=== PATIENT | female | born 1955 | race Caucasian/White ===

== ENCOUNTER 2016-10-29 00:10 | Emergency (ER) | payer OTHER, MEDICARE ==
[~2016-10-29 00:10] MED LIST: ABILIFY 15MG15 MG PO; ALBUTEROL0.09 MG/A1 INH; ALLOPURINOL300 MG PO; ATIVAN0.5 MG PO; BENZTROPINE ME0.5 MG PO; CALCIUM 600600 M1 PO; COMBIVENT1 ARO INH; DULERA1 AR1 INH; FLEXERIL10 MG PO; IBUPROFEN600 MG PO; INDERAL LA 60MG60 MG PO; LEVOTHYROXINE0.15 M1 PO; LORAZEPAM1 MG PO; MELOXICAM7.5 MG PO; MOTRIN 600 MG600 MG PO; PERCOCET 325 MG1 TA2 PO; PREDNISONE 20MG20 MG PO; PREDNISONE10 MG PO; PROPRANOLOL HCL20 MG PO; PROPRANOLOL HYD20 MG PO; SERTRALINE HYDR25 MG PO; SPIRIVA 18 MCG18 MCG INH; TEGRETOL200 MG PO; TYLENOL WITH C1 EACH PO; VITAMIN D1000 IU PO; ZITHROMAX Z-PA250 M1 PO; ZITHROMAX250 M2 PO; ZOCOR 40MG TAB40 MG PO
--- NOTE | 2016-10-29 00:27 | ED UPPER/LOWER EXTREMITY COMPL ---
History of Present Illness General Chief Complaint: Foot or Ankle Injury Stated Complaint: L FOOT PAIN X3 DAYS Source: patient Exam Limitations: no limitations Vital Signs & Intake/Output Vital Signs & Intake/Output Vital Signs Date Time Temp Pulse Resp B/P Pulse O2 O2 Flow FiO2 Ox Delivery Rate 10/29 0045 96.0 78 18 158/80 95 Room Air 10/29 0040 95 Room Air Allergies Coded Allergies: quetiapine (PER PT CANT REMEMBER 11/10/15) fluphenazine (STARES AT CEILING, WEIRD GYRATIONS PER PT 11/10/15) haloperidol (ROCKING BACK AND FORTH 11/10/15) lithium (GAINS A LOT OF WEIGHT PER PT 11/10/15) molindone (AKATHESIA 11/10/15) venom-honey bee (BEE VENOM (HONEY BEE)) (BEE VENOM WITH AKATHESIA 11/10/15) Reconcile Medications Albuterol Sulfate (Albuterol Sulfate Hfa) 0.09 MG/Actuation ROMAIN 2 PUFF INH Q4- 6 PRN PRN SHORTNESS OF BREATH 90 MCG PER PUFF Aripiprazole (Abilify) 15 MG TABLET 1 TAB PO DAILY BIPOLAR (Reported) Azithromycin (Zithromax) 250 MG TABLET 1 DP PO AD BRONCHITIS 2 the first day followed by 1 for days 2-5 Benztropine Mesylate 0.5 MG TAB 1 TAB PO BID MENTAL HEALTH (Reported) Calcium Carbonate (Calcium 600) 600 MG TAB 1 TAB PO BID SUPPLEMENT Carbamazepine (Tegretol) 200 MG TAB 400 MG PO BID "FITS" (Reported) Cholecalciferol (Vitamin D3) 1,000 IU TAB 1,000 IU PO DAILY supplement Levothyroxine Sodium 0.15 MG TAB 1 TAB PO DAILY THYROID (Reported) Lorazepam 1 MG TAB 1 TAB PO BID ANXIETY (Reported) Meloxicam 7.5 MG TAB 1 TAB PO BID ARTHRITIS (Reported) MOMETASONE/FORMOTEROL (Dulera 200 Mcg/5 Mcg Inhaler) 1 ROMAIN ROMAIN 2 PUF INH BID COPD (Reported) OXYCODONE HCL/ACETAMINOPHEN (Percocet 5-325 MG Tablet) 325 MG/5 MG TAB 1 TAB PO Q8P PRN pain Prednisone 10 MG TAB 1 TAB PO SI COPD Take 3 tabs daily on 11/04/15. Take 2 tabs daily from 11/05/15-3/3/16. Take 1 tab daily from 11/08/15-11/10/15. PROPRANOLOL HCL (Propranolol HCl) 20 MG TAB 1 TAB PO BID HYPERTENSION ( Reported) SERTRALINE HCL (Sertraline Hydrochloride) 25 MG TAB 1 TAB PO DAILY MENTAL HEALTH (Reported) Simvastatin (Zocor 40MG Tab) 40 MG TAB 1 TAB PO QPM CHOLESTEROL (Reported) Tiotropium [place] (Spiriva) 18 MCG CAP 1 CAP INH DAILY COPD (Reported) Tylenol With Codeine (Tylenol With Codeine #3 Tablet) 300 MG-30 MG TABLET 1 TAB PO Q8P PRN PAIN Triage Nurses Notes Reviewed? yes Onset: Gradual Duration: day(s): Timing: recent history Severity: mild, moderate Pain/Injury Location: Left: Foot. Method of Injury: unknown Modifying Factors: Improves With: rest. Associated Symptoms: "hurts when I walk" HPI: 61-year-old woman history schizophrenia presents by ambulance with left foot pain for the past 3 days. She notes that the pain is worse on the plantar aspect of her foot near her heel. It is worse when she walks. It is worse in the morning. She denies trauma. She notes that there is no swelling. She is otherwise well. She also asks about which psychiatric medications may be contributing to her weight gain. She asks about which psychiatric medications she could stop. She denies suicidality homicidality or hallucinations. She is otherwise well. Past History Travel History Traveled to [place] past 21 day No Medical History Any Pertinent Medical History? see below for history Neurological: NONE EENT: NONE Cardiovascular: hypertension Respiratory: asthma, bronchitis Gastrointestinal: NONE Hepatic: NONE Renal: NONE Musculoskeletal: R HIP/FEMUR/PELVIC FX/SX Psychiatric: schizoaffective disorder, borderline personality disorder, tobacco use disorder. 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 No Review of Systems Review of Systems Constitutional: Reports: no symptoms. EENTM: Reports: no symptoms. Respiratory: Reports: no symptoms. Cardiovascular: Reports: no symptoms. Gastrointestinal/Abdominal: Reports: no symptoms. Genitourinary: Reports: no symptoms. Musculoskeletal: Reports: no symptoms. Skin: Reports: no symptoms. Neurological/Psychological: Reports: no symptoms. Hematologic/Endocrine: Reports: no symptoms. Immunological: Reports: no symptoms. All Other Systems: Reviewed and Negative Physical Exam Physical Exam General Appearance: well developed/nourished, mild distress Head: atraumatic Eyes: Bilateral: normal appearance. Ears, Nose, Throat: normal pharynx, normal ENT inspection, hearing grossly normal Neck: normal inspection, supple Cardiovascular/Respiratory: regular rate/rhythm Back: normal inspection Leg Left: mild tenderness on the plantar aspect of the left foot near the calcaneus. No bony abnormality. 2+ distal pulse. Light touch intact. No swelling effusion or erythema. Skin: intact, normal color, warm/dry Lymphatic: no anterior cervical tran Progress Differential Diagnosis: contusion, sprain, tendon injury Plan of Care: Shlomo wrap to left foot by nursing staff. Close follow-up encouraged. We discussed her psychiatric medications. I encouraged her to continue her psychiatric medications and follow up with her psychiatrist as well as her PMD. Departure Departure Disposition: HOME OR SELF CARE Condition: Stable Clinical Impression Primary Impression: Plantar fasciitis of left foot Secondary Impressions: Schizophrenia Referrals: FLAQUITA HUA (PCP/Family) Departure Forms: Customer Survey General Discharge Information
[2016-10-29 00:45] VITALS: BP 158/80
== END 2016-10-29 00:49 ==
LOC: ERH 00:10
DX: M72.2 Plantar fascial fibromatosis (principal); F20.9 Schizophrenia, unspecified
CPT/HCPCS: 99282

== ENCOUNTER 2016-12-23 14:27 | Emergency (ER) | payer OTHER, MEDICARE ==
[~2016-12-23] VITALS: Ht 157.5 cm; Wt 72.6 kg
[2016-12-23 14:47] VITALS: BP 167/95
--- NOTE | 2016-12-23 14:54 | ED HAND/WRIST INJURY COMPLAINT ---
History of Present Illness General Chief Complaint: Hand or Wrist Injury Stated Complaint: UNABLE TO GET RING OFF OF FINGER Source: patient Exam Limitations: no limitations Vital Signs & Intake/Output Vital Signs & Intake/Output Vital Signs Date Time Temp Pulse Resp B/P B/P Pulse O2 O2 Flow FiO2 Mean Ox Delivery Rate 12/23 1447 97.4 64 18 167/95 97 Room Air Allergies Coded Allergies: quetiapine (PER PT CANT REMEMBER 11/10/15) fluphenazine (STARES AT CEILING, WEIRD GYRATIONS PER PT 11/10/15) haloperidol (ROCKING BACK AND FORTH 11/10/15) lithium (GAINS A LOT OF WEIGHT PER PT 11/10/15) molindone (AKATHESIA 11/10/15) venom-honey bee (BEE VENOM (HONEY BEE)) (BEE VENOM WITH AKATHESIA 11/10/15) Reconcile Medications Albuterol Sulfate (Albuterol Sulfate Hfa) 0.09 MG/Actuation ROMAIN 2 PUFF INH Q4- 6 PRN PRN SHORTNESS OF BREATH 90 MCG PER PUFF Aripiprazole (Abilify) 15 MG TABLET 1 TAB PO DAILY BIPOLAR (Reported) Azithromycin (Zithromax) 250 MG TABLET 1 DP PO AD BRONCHITIS 2 the first day followed by 1 for days 2-5 Benztropine Mesylate 0.5 MG TAB 1 TAB PO BID MENTAL HEALTH (Reported) Calcium Carbonate (Calcium 600) 600 MG TAB 1 TAB PO BID SUPPLEMENT Carbamazepine (Tegretol) 200 MG TAB 400 MG PO BID "FITS" (Reported) Cholecalciferol (Vitamin D3) 1,000 IU TAB 1,000 IU PO DAILY supplement Levothyroxine Sodium 0.15 MG TAB 1 TAB PO DAILY THYROID (Reported) Lorazepam 1 MG TAB 1 TAB PO BID ANXIETY (Reported) Meloxicam 7.5 MG TAB 1 TAB PO BID ARTHRITIS (Reported) MOMETASONE/FORMOTEROL (Dulera 200 Mcg/5 Mcg Inhaler) 1 ROMAIN ROMAIN 2 PUF INH BID COPD (Reported) OXYCODONE HCL/ACETAMINOPHEN (Percocet 5-325 MG Tablet) 325 MG/5 MG TAB 1 TAB PO Q8P PRN pain Prednisone 10 MG TAB 1 TAB PO SI COPD Take 3 tabs daily on 11/04/15. Take 2 tabs daily from 11/05/15-11/07/15. Take 1 tab daily from 11/08/15-11/10/15. PROPRANOLOL HCL (Propranolol HCl) 20 MG TAB 1 TAB PO BID HYPERTENSION ( Reported) SERTRALINE HCL (Sertraline Hydrochloride) 25 MG TAB 1 TAB PO DAILY MENTAL HEALTH (Reported) Simvastatin (Zocor 40MG Tab) 40 MG TAB 1 TAB PO QPM CHOLESTEROL (Reported) Tiotropium [place] (Spiriva) 18 MCG CAP 1 CAP INH DAILY COPD (Reported) Tylenol With Codeine (Tylenol With Codeine #3 Tablet) 300 MG-30 MG TABLET 1 TAB PO Q8P PRN PAIN Triage Note: PT TO TRIAGE WITH REQUEST TO CUT A RING FROM LEFT 4TH FINGER. SWELLING TO L 4HT FINGER NOTED. Triage Nurses Notes Reviewed? yes Occurred: GRADUAL Duration: worse persistent since (1 WEEK) Timing: no prior history Injury Environment: home Severity: moderate Severity Numbers: 7 Pain/Injury Location: Left: 4th finger. Method of Injury: RING HPI: Patient is a 61-year-old female presenting to the emergency department requesting we remove her ring from her left ring finger. She reports she put it on 2 months ago and noticed slowly increase in swelling in her fingers. Unable to get her off at home. Pain is mild. Worse when she tries support off. Denies numbness or tingling. Denies any trauma. Denies any nausea vomiting fevers or chills. (BHARATI CHO) Past History Travel History Traveled to [place] past 21 day No Medical History Any Pertinent Medical History? see below for history Neurological: NONE EENT: NONE Cardiovascular: hypertension Respiratory: asthma, bronchitis Gastrointestinal: NONE Hepatic: NONE Renal: NONE Musculoskeletal: R HIP/FEMUR/PELVIC FX/SX Psychiatric: schizoaffective disorder, borderline personality disorder, tobacco use disorder. 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 No (BHARATI CHO) Review of Systems Review of Systems Constitutional: Reports: no symptoms. Comments Review of systems: See HPI, All other systems negative. Constitutional, no chills fever or weight loss HEENT: No visual changes no sore throat no congestion Cardiovascular: No chest pain Skin, no jaundice no rashes Respiratory: No dyspnea cough sputum or hemoptysis GI: No nausea no vomiting : No dysuria No hematuria Muscle skeletal: no back pain, no neck pain, Neurologic: No numbness no confusion Psych: No INCREASED stress anxiety Immunology: No splenectomy or history of AIDS (BHARATI CHO) Physical Exam Physical Exam General Appearance: well developed/nourished, no apparent distress, alert, awake , anxious Hand Left: swelling, tender, 4th finger Hand Right: normal inspection Comments: Well-developed well-nourished no apparent distress. HEENT: Atraumatic, extraocular motion intact Neck: Normal inspection Back: Nontender Respiratory: No respiratory distress Extremities: mild edema noted to the left ring finger, to the distal aspect. There is a metal thick ring noted at the base of the left fourth finger. Capillary refills intact in upper extremities bilaterally. Radial pulses are 2+ bilaterally. Neuro: Alert and oriented x3 Psych: anxious, repetitively saying that she is leaving (BHARATI CHO) Progress Differential Diagnosis: cellulitis, contusion, dislocation, fracture, sprain Plan of Care: RING WAS REMOVED WITHOUT DIFFICULTY WITH THE RING CUT HER. bACITRACIN AND bAND- aID PLACED IN THE AREA THERE WAS SMALL AMOUNT OF ERYTHEMA UNDERNEATH THE RING. (BHARATI CHO) Departure Departure Time of Disposition: 1510 Disposition: HOME OR SELF CARE Condition: Stable Clinical Impression Primary Impression: Abrasion Referrals: FLAQUITA HUA (PCP/Family) Additional Instructions: FOLLOW-UP WITH YOUR PRIMARY CARE PHYSICIAN CALL TO MAKE AN APPOINTMENT. kEEP AREA CLEAN AND DRY. rETURN FOR WORSENING SYMPTOMS OR CONCERNS. Departure Forms: Customer Survey General Discharge Information (BHARATI CHO) PA/SERVICE ATTENDANT CAFETERIA Co-Sign Statement Statement: ED Attending supervision documentation- [] I saw and evaluated the patient. I have also reviewed all the pertinent lab results and diagnostic results. I agree with the findings and the plan of care as documented in the PA's/SERVICE ATTENDANT CAFETERIA's documentation. [X] I have reviewed the ED Record and agree with the PA's/SERVICE ATTENDANT CAFETERIA's documentation. [] Additions or exceptions (if any) to the PAs/SERVICE ATTENDANT CAFETERIA's note and plan are summarized below: [] (NICHOLAS PENA,ERVIN) Procedures Additional Procedures Additional Procedures: rING REMOVAL Progress: Ring was removed with ring cutter. No complications. (FERDINAND PA,BHARATI)
== END 2016-12-23 15:15 ==
LOC: ERH 14:27
DX: S60.455A Superficial foreign body of left ring finger, initial encounter (principal); X58.XXXA Exposure to other specified factors, initial encounter

== ENCOUNTER 2017-01-02 22:50 | Emergency (ER) | payer OTHER, MEDICARE ==
[~2017-01-02] VITALS: Ht 66 cm; Wt 72.6 kg
--- NOTE | 2017-01-02 22:53 | ED PSYCHIATRIC COMPLAINT ---
History of Present Illness General Chief Complaint: Psychiatric Related Complaint Stated Complaint: DEPRESSION, +SI Vital Signs & Intake/Output Vital Signs & Intake/Output Vital Signs Date Time Temp Pulse Resp B/P B/P Pulse O2 O2 Flow FiO2 Mean Ox Delivery Rate 01/03 0252 97.7 66 16 151/67 98 01/02 2303 97.2 68 21 182/80 98 Room Air ED Intake and Output 01/03 0000 01/02 1200 Intake Total Output Total Balance Patient 160 lb Weight Weight Reported by Patient Measurement Method Allergies Coded Allergies: quetiapine (PER PT CANT REMEMBER 11/10/15) fluphenazine (STARES AT CEILING, WEIRD GYRATIONS PER PT 11/10/15) haloperidol (ROCKING BACK AND FORTH 11/10/15) lithium (GAINS A LOT OF WEIGHT PER PT 11/10/15) molindone (AKATHESIA 11/10/15) venom-honey bee (BEE VENOM (HONEY BEE)) (BEE VENOM WITH AKATHESIA 11/10/15) Reconcile Medications Albuterol Sulfate (Albuterol Sulfate Hfa) 0.09 MG/Actuation ROMAIN 2 PUFF INH Q4- 6 PRN PRN SHORTNESS OF BREATH 90 MCG PER PUFF Aripiprazole (Abilify) 15 MG TABLET 1 TAB PO DAILY BIPOLAR (Reported) Azithromycin (Zithromax) 250 MG TABLET 1 DP PO AD BRONCHITIS 2 the first day followed by 1 for days 2-5 Benztropine Mesylate 0.5 MG TAB 1 TAB PO BID MENTAL HEALTH (Reported) Calcium Carbonate (Calcium 600) 600 MG TAB 1 TAB PO BID SUPPLEMENT Carbamazepine (Tegretol) 200 MG TAB 400 MG PO BID "FITS" (Reported) Cholecalciferol (Vitamin D3) 1,000 IU TAB 1,000 IU PO DAILY supplement Levothyroxine Sodium 0.15 MG TAB 1 TAB PO DAILY THYROID (Reported) Lorazepam 1 MG TAB 1 TAB PO BID ANXIETY (Reported) Meloxicam 7.5 MG TAB 1 TAB PO BID ARTHRITIS (Reported) MOMETASONE/FORMOTEROL (Dulera 200 Mcg/5 Mcg Inhaler) 1 ROMAIN ROMAIN 2 PUF INH BID COPD (Reported) OXYCODONE HCL/ACETAMINOPHEN (Percocet 5-325 MG Tablet) 325 MG/5 MG TAB 1 TAB PO Q8P PRN pain Prednisone 10 MG TAB 1 TAB PO SI COPD Take 3 tabs daily on 11/04/15. Take 2 tabs daily from 11/05/15-11/07/15. Take 1 tab daily from 11/08/15-11/10/15. PROPRANOLOL HCL (Propranolol HCl) 20 MG TAB 1 TAB PO BID HYPERTENSION ( Reported) SERTRALINE HCL (Sertraline Hydrochloride) 25 MG TAB 1 TAB PO DAILY MENTAL HEALTH (Reported) Simvastatin (Zocor 40MG Tab) 40 MG TAB 1 TAB PO QPM CHOLESTEROL (Reported) Tiotropium [place] (Spiriva) 18 MCG CAP 1 CAP INH DAILY COPD (Reported) Tylenol With Codeine (Tylenol With Codeine #3 Tablet) 300 MG-30 MG TABLET 1 TAB PO Q8P PRN PAIN Past History Travel History Traveled to [place] past 21 day No Medical History Neurological: NONE EENT: NONE Cardiovascular: hypertension Respiratory: asthma, bronchitis Gastrointestinal: NONE Hepatic: NONE Renal: NONE Musculoskeletal: R HIP/FEMUR/PELVIC FX/SX Psychiatric: schizoaffective disorder, borderline personality disorder, tobacco use disorder. 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 History of MRSA: No History of VRE: No History of CDIFF: No Tetanus Vaccine: 05/03/16 Surgical History Surgical History: status post lumpectomy Psychosocial History Who do you live with Patient/Self What is your primary language Slovenian Progress Plan of Care: Orders Procedure Date/time Status ED CRISIS PSYCH CONSULT 01/02 2353 Active Continuous Observation Monitor 01/03 2316 Active URINE DRUG SCREEN FOR ER ONLY 01/03 2316 Complete ETHANOL 01/03 2316 Complete COMPREHENSIVE METABOLIC PANEL 01/03 2316 Complete CBC WITHOUT DIFFERENTIAL 01/03 2316 Complete Laboratory Tests 01/02/17 2351: Urine Opiates Screen < 100.00, Methadone Screen < 40, Barbiturate Screen < 60, Ur Phencyclidine Scrn < 6.00, Amphetamines Screen 131, U Benzodiazepines Scrn 88 , Urine Cocaine Screen < 50, Urine Cannabis Screen < 5.00 01/02/17 2341: Anion Gap 10, Estimated GFR 42 L, BUN/Creatinine Ratio 32.3 H, Glucose 112 H, Calcium 8.7, Total Bilirubin 0.7, AST 32, ALT 40, Alkaline Phosphatase 116, Total Protein 7.6, Albumin 4.1, Globulin 3.5, Albumin/Globulin Ratio 1.2, CBC w Diff NO MAN DIFF REQ, RBC 3.90 L, MCV 95.2, MCH 32.5 H, RDW 13.4, MPV 7.5, Gran % 62.0, Lymphocytes % 24.4, Monocytes % 10.0 H, Eosinophils % 2.9, Basophils % 0.7, Absolute Granulocytes 2.8, Absolute Lymphocytes 1.1 L, Absolute Monocytes 0.5, Absolute Eosinophils 0.1, Absolute Basophils 0, PUBS MCHC 34.2, Serum Alcohol < 10.0 Departure Departure Condition: Stable Referrals: FLAQUITA HUA (PCP/Family) Departure Forms: Customer Survey General Discharge Information
--- NOTE | 2017-01-02 23:16 | ED PSYCHIATRIC COMPLAINT ---
History of Present Illness General Chief Complaint: Psychiatric Related Complaint Stated Complaint: DEPRESSION, +SI Source: patient, old records Exam Limitations: no limitations Vital Signs & Intake/Output Vital Signs & Intake/Output Vital Signs Date Time Temp Pulse Resp B/P B/P Pulse O2 O2 Flow FiO2 Mean Ox Delivery Rate 01/03 0852 97.6 01/03 0800 96 01/03 0549 97.6 62 16 158/72 95 Room Air 01/03 0252 97.7 66 16 151/67 98 01/02 2303 97.2 68 21 182/80 98 Room Air ED Intake and Output 01/03 0000 01/02 1200 Intake Total Output Total Balance Patient 160 lb Weight Weight Reported by Patient Measurement Method Allergies Coded Allergies: quetiapine (PER PT CANT REMEMBER 11/10/15) fluphenazine (STARES AT CEILING, WEIRD GYRATIONS PER PT 11/10/15) haloperidol (ROCKING BACK AND FORTH 11/10/15) lithium (GAINS A LOT OF WEIGHT PER PT 11/10/15) molindone (AKATHESIA 11/10/15) venom-honey bee (BEE VENOM (HONEY BEE)) (BEE VENOM WITH AKATHESIA 11/10/15) Triage Note: PT BIBA ON A PEER FOR SI COMMENTS. PER EMS PT CALLED SUICIDE HOTLINE STATING SHE WAS GOING TO HARM HERSELF IF SHE COULDNT WAKE UP HER UP TO TALK. PER EMS SHE STATED SHE HAD NOBODY TO TALK TO. PT A/O X4. PT DENIES SI/HI. PT REPRTS NEVER SAYING SHE IS SI. PT STATES SHE FELT LONELY AND WANTED SOMEONE TO TALK TO. Triage Nurses Notes Reviewed? yes Onset: Abrupt Duration: day(s): (1), constant Timing: recent history Severity: moderate Severity Numbers: 7 Associated Symptoms: anxiety HPI: 61-year-old female history of schizophrenia and bipolar presents brought in by ambulance on please paper after she made comments to the crisis hotline saying that she was going to harm herself because she was lonely and could not wake her up to talk. On arrival the patient is anxious however cooperative, she states she's been compliant with all her medications and denies making any suicidal comments. Patient denies homicidal ideation and she denies hallucinations R: Drug use no modifying factors or associated symptoms. (BILL PA,EVIN) Reconcile Medications Albuterol Sulfate (Albuterol Sulfate Hfa) 0.09 MG/Actuation ROMAIN 2 PUFF INH Q4- 6 PRN PRN SHORTNESS OF BREATH 90 MCG PER PUFF Aripiprazole (Abilify) 15 MG TABLET 1 TAB PO DAILY BIPOLAR (Reported) Benztropine Mesylate 0.5 MG TAB 1 TAB PO BID MENTAL HEALTH (Reported) Calcium Carbonate (Calcium 600) 600 MG TAB 1 TAB PO BID SUPPLEMENT Carbamazepine (Tegretol) 200 MG TAB 400 MG PO BID "FITS" (Reported) Cholecalciferol (Vitamin D3) 1,000 IU TAB 1,000 IU PO DAILY supplement Levothyroxine Sodium 0.15 MG TAB 1 TAB PO DAILY THYROID (Reported) Lorazepam 1 MG TAB 1 TAB PO BID ANXIETY (Reported) Meloxicam 7.5 MG TAB 1 TAB PO BID ARTHRITIS (Reported) MOMETASONE/FORMOTEROL (Dulera 200 Mcg/5 Mcg Inhaler) 1 ROMAIN ROMAIN 2 PUF INH BID COPD (Reported) OXYCODONE HCL/ACETAMINOPHEN (Percocet 5-325 MG Tablet) 325 MG/5 MG TAB 1 TAB PO Q8P PRN pain Prednisone 10 MG TAB 1 TAB PO SI COPD Take 3 tabs daily on 11/04/15. Take 2 tabs daily from 11/05/15-11/07/15. Take 1 tab daily from 11/08/15-11/10/15. PROPRANOLOL HCL (Propranolol HCl) 20 MG TAB 1 TAB PO BID HYPERTENSION ( Reported) SERTRALINE HCL (Sertraline Hydrochloride) 25 MG TAB 1 TAB PO DAILY MENTAL HEALTH (Reported) Simvastatin (Zocor 40MG Tab) 40 MG TAB 1 TAB PO QPM CHOLESTEROL (Reported) Tiotropium [place] (Spiriva) 18 MCG CAP 1 CAP INH DAILY COPD (Reported) Tylenol With Codeine (Tylenol With Codeine #3 Tablet) 300 MG-30 MG TABLET 1 TAB PO Q8P PRN PAIN (MANUELA PENA,GEMA Oliver) Past History Travel History Traveled to [place] past 21 day No Medical History Any Pertinent Medical History? see below for history Neurological: NONE EENT: NONE Cardiovascular: hypertension Respiratory: asthma, bronchitis Gastrointestinal: NONE Hepatic: NONE Renal: NONE Musculoskeletal: R HIP/FEMUR/PELVIC FX/SX Psychiatric: schizoaffective disorder, borderline personality disorder, tobacco use disorder. 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 No (EVIN TEJEDA) Review of Systems Review of Systems Constitutional: Reports: see HPI. All Other Systems: Reviewed and Negative Comments Review of systems: See HPI, All other systems negative. Constitutional, no chills no fever, no malaise HEENT:no sore throat no congestion Cardiovascular: No chest pain , no palpitation Skin: no rashes, no change in skin Respiratory: No dyspnea no cough no sputum GI: No nausea no vomiting, no diarrhea : No dysuria No hematuria, Muscle skeletal: No joint pain, no joint swelling, no back pain Neurologic: no headache Psych: stress Heme/endocrine: No bruising no bleeding Immunology: No lymphadenopathy (EVIN TEJEDA) Physical Exam Physical Exam General Appearance: well developed/nourished, no apparent distress, alert Neurological/Psychiatric: no motor/sensory deficits, awake, alert, normal mood/ affect, calm Comments: Well-developed well-nourished person in no acute distress HEENT: Normal EENT exam; PERRL, EOMI, HEAD is atraumatic. moist mucous membranes. Neck: Supple, normal range of motion s Back: Nontender,. Full range of motion Cardiovascular: Regular rate and rhythms no murmurs rubs Respiratory: No respiratory distress. Patient speaking in full complete sentences. Breath sounds clear to auscultation bilaterally: NO W/R/R Abdomen: Soft, nontender nondistended, Extremity: No edema, full range of motion of extremities Neuro: Alert oriented x3, motor sensory normal, cranial nerves II through XII grossly intact. There were no obvious focal neurologic abnormalities. Skin: No appreciable rash on exposed skin, skin is warm and dry. Psych: Mood and affect is normal, memory and judgment is normal. SAD PERSONS Done? patient not suicidal (EVIN TEJEDA) Progress Differential Diagnosis: BIPOLAR, SCHIZOAFFECTIVE DISORDER Plan of Care: Orders Procedure Date/time Status Regular Diet 01/03 B Active ED CRISIS PSYCH CONSULT 01/02 2353 Active Continuous Observation Monitor 01/03 2316 Active URINE DRUG SCREEN FOR ER ONLY 01/03 2316 Complete ETHANOL 01/03 2316 Complete COMPREHENSIVE METABOLIC PANEL 01/03 2316 Complete CBC WITHOUT DIFFERENTIAL 01/03 2316 Complete Laboratory Tests 01/02/17 2351: Urine Opiates Screen < 100.00, Methadone Screen < 40, Barbiturate Screen < 60, Ur Phencyclidine Scrn < 6.00, Amphetamines Screen 131, U Benzodiazepines Scrn 88 , Urine Cocaine Screen < 50, Urine Cannabis Screen < 5.00 01/02/17 2341: Anion Gap 10, Estimated GFR 42 L, BUN/Creatinine Ratio 32.3 H, Glucose 112 H, Calcium 8.7, Total Bilirubin 0.7, AST 32, ALT 40, Alkaline Phosphatase 116, Total Protein 7.6, Albumin 4.1, Globulin 3.5, Albumin/Globulin Ratio 1.2, CBC w Diff NO MAN DIFF REQ, RBC 3.90 L, MCV 95.2, MCH 32.5 H, RDW 13.4, MPV 7.5, Gran % 62.0, Lymphocytes % 24.4, Monocytes % 10.0 H, Eosinophils % 2.9, Basophils % 0.7, Absolute Granulocytes 2.8, Absolute Lymphocytes 1.1 L, Absolute Monocytes 0.5, Absolute Eosinophils 0.1, Absolute Basophils 0, PUBS MCHC 34.2, Serum Alcohol < 10.0 LABS ORDERED, PT MEDICATED WITH ATIVAN 2MG PO CASE D/W DR PETERSON AND SIGNED OUT TO HER AT 1AM PENDING CRISIS EVAL IN AM (EVIN TEJEDA) Hand-Off Endorsed To: ERVIN PETERSON MD Endorsed Time: 54 Pending: consult (CRISIS) (EVIN TEJEDA) Hand-Off Endorsed To: GEMA ROY MD Endorsed Time: 07 Pending: consult (ERVIN PETERSON MD) Comments: Patient has been seen and evaluated by hypoid gear generator. Patient is stable for discharge. (GEMA ROY MD) Departure Departure Condition: Stable Referrals: FLAQUITA HUA (PCP/Family) Departure Forms: Customer Survey General Discharge Information (EVIN TEJEDA) PA/SLASHER HAND Co-Sign Statement Statement: ED Attending supervision documentation- [X] I saw and evaluated the patient. I have also reviewed all the pertinent lab results and diagnostic results. I agree with the findings and the plan of care as documented in the PA's/SLASHER HAND's documentation. [X] I have reviewed the ED Record and agree with the PA's/SLASHER HAND's documentation. [] Additions or exceptions (if any) to the PAs/SLASHER HAND's note and plan are summarized below: [] (NICHOLAS PENA,ERVIN) Departure Disposition: HOME OR SELF CARE Clinical Impression Primary Impression: Depression Secondary Impressions: Bipolar disorder, unspecified, Schizoaffective disorder Additional Instructions: Follow-up as per the recommendations of the hypoid gear generator. Return for any concerns. (MANUELA PENA,GEMA Oliver)
[2017-01-02 23:50] LABS: ABSOLUTE BASOPHIL COUNT 0 /CUMM (0.0-0.2); ABSOLUTE EOSINOPHIL COUNT 0.1 /CUMM (0.0-0.7); ABSOLUTE GRANULOCYTE CT 2.8 /CUMM (1.4-6.5); ABSOLUTE LYMPH COUNT 1.1 /CUMM (1.2-3.4); ABSOLUTE MONOCYTE COUNT 0.5 /CUMM (0.10-0.60); BASOPHIL % 0.7 % (0.0-2.0); EOSINOPHIL % 2.9 % (0-5); HEMATOCRIT 37.1 % (37-47); MEAN CORPUSCULAR HGB 32.5 PG (27.0-31.0); MEAN CORPUSCULAR HGB CONC 34.2 G/DL (33.0-37.0); MEAN CORPUSCULAR VOLUME 95.2 FL (81.0-99.0); MEAN PLATELET VOLUME 7.5 FL (7.4-10.4); PLATELET COUNT 193 /CUMM (130-400); RBC DISTRIBUTION WIDTH 13.4 % (11.5-14.5); WHITE BLOOD CELL COUNT 4.5 /CUMM (4.8-10.8)
[2017-01-03 10:13] VITALS: BP 142/74
--- NOTE | 2017-01-03 10:34 | ED PSYCH CRISIS CONSULTATION ---
Crisis Consult Basic Assessment Date of Consult: 01/03/17 Responsible Person/Accompanied By: self Insurance Authorization: Insurance #1: Insurance name: MEDICARE A Phone number: Policy number: [id number] Group number: Authorization number: ED Provider: Patient's ED Provider: EVIN TEJEDA Primary Care Physician: Patient's PCP: FLAQUITA HUA PCP's Current Psychiatrist: [facility] Chief Complaint: Psychiatric Related Complaint Patient's Quote: "I didn't say I was going to harm myself." Present Illness: The pt is a 61yo single female BIBA on a PEER after calling the [facility] Crisis line. This clinician spoke by phone with the [facility] sales solutions representative clinician Paula Lozano. Ms. Lozano stated mobile crisis did not evaluate the pt. Ms. Lozano stated the answering service followed their protocol and called the police due to the pt making a statement about self harm. Ms. Lozano stated the [facility] Clinical Director of the [place] office reported the pt has been ramping up over the past week and making statements that are verbally aggressive and less edited. During this assessment and throughout her time in the ED the pt denies making statements about harming herself during her call to mobile crisis. The pt stated her boyfriend went to bed early and she wanted to talk with someone. The pt presented alert, oriented and irritable with goal directed speech. During her time in the ED the pt has been argumentative at times with ED sitter. The pt was cooperative during this assessment. The pt denies SI, HI, AH, VH, paranoia and problems with appetite. The pt stated she sleeps 4 hours per night and naps during the day which she reports is her baseline sleep pattern. The pt denies any drug and alcohol use and her toxicology screen is negative. The pt reports taking her medication as prescribed. The pt is in treatment at [facility] and sees her case sealer and therapist on a weekly basis. The pt reports she last saw her therapist on 01/01/17 and is scheduled to see the therapist on 01/04/17. The pt stated she is scheduled to see the psychiatrist on 01/07/17. The pt has a visiting nurse 1x per day Wednesday through Wednesday. The pt is requesting discharge home and to continue in treatment with [facility]. The pt denies any self harm behaviors since 04/2016 when she was evaluated and discharged from the [place] ED after superficially scratching her wrist. The pt has a long treatment history and has been diagnosed with Schizophrenia and Bipolar. The pt stated her last suicide attempt was over 30 years ago, pt unable to provide details. Pts presentation reviewed with Dr. Mendoza, pt will be discharged and continue in treatment at [facility]. Pt is in agreement with this plan and stated she will call [facility] if needed or return to the ED. Patient's Address: [address] [place] [address] Other Phone Number: Who Do You Live With? Patient/Self Family/Informants Interviewed: [facility] sales solutions representative clinician, previous [place] records. Allergies - Coded Allergies: quetiapine (PER PT CANT REMEMBER 11/10/15) fluphenazine (STARES AT CEILING, WEIRD GYRATIONS PER PT 11/10/15) haloperidol (ROCKING BACK AND FORTH 11/10/15) lithium (GAINS A LOT OF WEIGHT PER PT 11/10/15) molindone (AKATHESIA 11/10/15) venom-honey bee (BEE VENOM (HONEY BEE)) (BEE VENOM WITH AKATHESIA 11/10/15) Current Medications - Scheduled Medications Aripiprazole (Abilify) 15 MG TABLET 1 TAB PO DAILY BIPOLAR 30 Days (Reported) Entered as Reported by MARIAA VASQUES on 07/21/14 0748 Benztropine Mesylate 0.5 MG TAB 1 TAB PO BID MENTAL HEALTH #60 (Reported) Entered as Reported by JAMEE WHITESIDE on 10/29/151934 Calcium Carbonate (Calcium 600) 600 MG TAB 1 TAB PO BID SUPPLEMENT 30 Days Prescribed by JAKUB VASQUEZ on 11/03/15 Carbamazepine (Tegretol) 200 MG TAB 400 MG PO BID "FITS" #120 (Reported) Entered as Reported by JAMEE WHITESIDE on 10/29/151934 Cholecalciferol (Vitamin D3) 1,000 IU TAB 1,000 IU PO DAILY supplement 30 Days Prescribed by JAKUB VASQUEZ on 11/03/15 Levothyroxine Sodium 0.15 MG TAB 1 TAB PO DAILY THYROID 30 Days (Reported) Entered as Reported by MARIAA VASQUES on 07/21/14 0748 Lorazepam 1 MG TAB 1 TAB PO BID ANXIETY #60 (Reported) Entered as Reported by JAMEE WHITESIDE on 10/29/151935 Meloxicam 7.5 MG TAB 1 TAB PO BID ARTHRITIS #60 (Reported) Entered as Reported by JAMEE WHITESIDE on 10/29/151936 MOMETASONE/FORMOTEROL (Dulera 200 Mcg/5 Mcg Inhaler) 1 ROMAIN ROMAIN 2 PUF INH BID COPD #13 (Reported) Entered as Reported by JAMEE WHITESIDE on 10/29/151932 Prednisone 10 MG TAB 1 TAB PO SI COPD #12 TAB Prescribed by JAKUB VASQUEZ on 11/03/15 PROPRANOLOL HCL (Propranolol HCl) 20 MG TAB 1 TAB PO BID HYPERTENSION ( Reported) Entered as Reported by HAL STALLWORTH MD on 10/29/152215 SERTRALINE HCL (Sertraline Hydrochloride) 25 MG TAB 1 TAB PO DAILY MENTAL HEALTH #30 (Reported) Entered as Reported by JAMEE WHITESIDE on 10/29/151932 Simvastatin (Zocor 40MG Tab) 40 MG TAB 1 TAB PO QPM CHOLESTEROL #60 (Reported ) Entered as Reported by JAMEE WHITESIDE on 10/29/151937 Tiotropium [place] (Spiriva) 18 MCG CAP 1 CAP INH DAILY COPD #30 (Reported) Entered as Reported by JAMEE WHITESIDE on 10/29/151932 Scheduled PRN Medications Albuterol Sulfate (Albuterol Sulfate Hfa) 0.09 MG/Actuation ROMAIN 2 PUFF INH Q4- 6 PRN PRN SHORTNESS OF BREATH #1 ROMAIN Prescribed by BHARATI CHO on 08/17/15 OXYCODONE HCL/ACETAMINOPHEN (Percocet 5-325 MG Tablet) 325 MG/5 MG TAB 1 TAB PO Q8P PRN pain #10 TAB Prescribed by JAKUB VASQUEZ on 11/03/15 Tylenol With Codeine (Tylenol With Codeine #3 Tablet) 300 MG-30 MG TABLET 1 TAB PO Q8P PRN PAIN #20 TAB Prescribed by GEMA ROY MD on 07/05/16 Laboratory Results: Laboratory Tests 01/02/17 2351: Urine Opiates Screen < 100.00, Methadone Screen < 40, Barbiturate Screen < 60, Ur Phencyclidine Scrn < 6.00, Amphetamines Screen 131, U Benzodiazepines Scrn 88 , Urine Cocaine Screen < 50, Urine Cannabis Screen < 5.00 01/02/17 2341: Anion Gap 10, Estimated GFR 42 L, BUN/Creatinine Ratio 32.3 H, Glucose 112 H, Calcium 8.7, Total Bilirubin 0.7, AST 32, ALT 40, Alkaline Phosphatase 116, Total Protein 7.6, Albumin 4.1, Globulin 3.5, Albumin/Globulin Ratio 1.2, CBC w Diff NO MAN DIFF REQ, RBC 3.90 L, MCV 95.2, MCH 32.5 H, RDW 13.4, MPV 7.5, Gran % 62.0, Lymphocytes % 24.4, Monocytes % 10.0 H, Eosinophils % 2.9, Basophils % 0.7, Absolute Granulocytes 2.8, Absolute Lymphocytes 1.1 L, Absolute Monocytes 0.5, Absolute Eosinophils 0.1, Absolute Basophils 0, PUBS MCHC 34.2, Serum Alcohol < 10.0 Past History Past Medical History Neurological: NONE EENT: NONE Cardiovascular: hypertension Respiratory: asthma, bronchitis Gastrointestinal: NONE Hepatic: NONE Renal: NONE Musculoskeletal: R HIP/FEMUR/PELVIC FX/SX Psychiatric: schizoaffective disorder, borderline personality disorder, tobacco use disorder. 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 Physical Limitations (Interventions): Right trochanter partial-fracture 10/29/2015; fracture was pinned on 10/31/2015. Psychiatric Treatment History Psych Treatment Psychiatric Treatment Yes Inpatient Treatment Yes Outpatient Treatment Yes Location of Treatment [facility] Reason for Treatment Schizoaffective Dis, Bipolar type Dates of Treatment Long hx of treatment Response to Treatment periods of stability Diagnosis by History: Schizoaffective disorder bipolar type History of benzodiazepine dependence History of schizotypal personality disorder with borderline, narcissistic, histrionic and paranoid traits Substance Use/Abuse History Drug Use/Abuse Substances Used/Abused No Substance Abuse Treatment Substance Abuse Treatment Past Substance Abuse [place] No Current Mental Status Mental Status Orientation: Person, Place, Situation Affect: Anxious (irritable at times) Speech: WNL Neuro-vegetative: WNL Appearance Appearance- Dress/Hygiene: appropriate Behaviors Thought Process: WNL Thought Content: WNL Memory: WNL Insight: Fair SI/HI Risk Assessment Past Suicidal Ideation/Attempts Yes Current Suicidal Ideation/Att No Past Homicidal Ideation/Att: No Current Homicidal Ideation/Attempts No Degree of Intent: None Danger To: Others (n/a) Risk Factors: access to lethal means, chronic/serious med cond., history of suicide atmpts, SA/MH hospitalized, limited support Lethality Ratin (mild) PTSD Checklist PTSD Done? patient declined ED Management Sitter: Yes Restraints: No DSM5/PS Stressors/Medical Prob Diagnosis' (DSM 5, Stressors, Medical): F25.0 Schizoaffective, bipolar type Current GAF: 44 Departure Disposition Psych Medical Clearance Date: 01/03/17 Medically Cleared at: 0800 Time Started: 0800 Time Ended: 0845 Psychiatrist Consulted: Dr. Mendoza Date Disposition Established: 01/03/17 Time Disposition Established: 1000 Plan for Disposition - Modality: Outpatient Facility: [facility] Follow-up Appt Date: 01/04/17 Rationale for Disposition: Pt is not in need of hospitalization. Referrals FLAQUITA HUA (PCP/Family)
== END 2017-01-03 10:13 ==
LOC: ERH 22:50
PROVIDERS: Physician Assistant Medical
DX: F32.9 Major depressive disorder, single episode, unspecified (principal); F31.9 Bipolar disorder, unspecified; F25.9 Schizoaffective disorder, unspecified
CPT/HCPCS: 1263; 80307; 96372; G0463; G0480; J1200

== ENCOUNTER 2017-12-30 16:38 | Emergency (ER) | payer OTHER, MEDICARE ==
--- NOTE | 2017-12-30 17:54 | ED PSYCHIATRIC COMPLAINT ---
History of Present Illness General Chief Complaint: Psychiatric Related Complaint Stated Complaint: +SI Source: patient, old records, EMS Exam Limitations: no limitations Vital Signs & Intake/Output Vital Signs & Intake/Output Vital Signs Date Time Temp Pulse Resp B/P B/P Pulse O2 O2 Flow FiO2 Mean Ox Delivery Rate 12/31 0811 97.9 70 20 148/78 95 Room Air 12/31 0622 96.4 59 20 163/52 98 Room Air 12/31 0143 94 12/30 2153 96.8 71 20 123/60 93 Room Air 12/30 1941 97.0 92 20 131/66 100 Room Air 12/30 1746 97.3 80 18 124/61 94 Room Air 12/30 1647 Room Air Allergies Coded Allergies: quetiapine (PER PT CANT REMEMBER 11/10/15) fluphenazine (STARES AT CEILING, WEIRD GYRATIONS PER PT 11/10/15) haloperidol (ROCKING BACK AND FORTH 11/10/15) lithium (GAINS A LOT OF WEIGHT PER PT 11/10/15) molindone (AKATHESIA 11/10/15) venom-honey bee (BEE VENOM (HONEY BEE)) (BEE VENOM WITH AKATHESIA 11/10/15) Reconcile Medications Albuterol Sulfate (Albuterol Sulfate Hfa) 0.09 MG/Actuation ROMAIN 2 PUFF INH Q4- 6 PRN PRN SHORTNESS OF BREATH 90 MCG PER PUFF Aripiprazole (Abilify) 15 MG TABLET 1 TAB PO DAILY BIPOLAR (Reported) Benztropine Mesylate 0.5 MG TAB 1 TAB PO BID MENTAL HEALTH (Reported) Calcium Carbonate (Calcium 600) 600 MG TAB 1 TAB PO BID SUPPLEMENT Carbamazepine (Tegretol) 200 MG TAB 400 MG PO BID "FITS" (Reported) Cholecalciferol (Vitamin D3) 1,000 IU TAB 1,000 IU PO DAILY supplement Levothyroxine Sodium 0.15 MG TAB 1 TAB PO DAILY THYROID (Reported) Lorazepam 1 MG TAB 1 TAB PO BID ANXIETY (Reported) Meloxicam 7.5 MG TAB 1 TAB PO BID ARTHRITIS (Reported) MOMETASONE/FORMOTEROL (Dulera 200 Mcg/5 Mcg Inhaler) 1 ROMAIN ROMAIN 2 PUF INH BID COPD (Reported) OXYCODONE HCL/ACETAMINOPHEN (Percocet 5-325 MG Tablet) 325 MG/5 MG TAB 1 TAB PO Q8P PRN pain Prednisone 10 MG TAB 1 TAB PO SI COPD Take 3 tabs daily on 11/04/15. Take 2 tabs daily from 11/05/15-11/07/15. Take 1 tab daily from 11/08/15-11/10/15. PROPRANOLOL HCL (Propranolol HCl) 20 MG TAB 1 TAB PO BID HYPERTENSION ( Reported) SERTRALINE HCL (Sertraline Hydrochloride) 25 MG TAB 1 TAB PO DAILY MENTAL HEALTH (Reported) Simvastatin (Zocor 40MG Tab) 40 MG TAB 1 TAB PO QPM CHOLESTEROL (Reported) Tiotropium [place] (Spiriva) 18 MCG CAP 1 CAP INH DAILY COPD (Reported) Tylenol With Codeine (Tylenol With Codeine #3 Tablet) 300 MG-30 MG TABLET 1 TAB PO Q8P PRN PAIN Triage Note: PHIL FROM [facility] FOR EVAL AFTER MAKING SI STATEMENTS TO COUNSELOR Triage Nurses Notes Reviewed? yes Onset: Just prior to arrival Duration: hour(s): Timing: recent history Severity: severe Severity Numbers: 8 HPI: Patient is a 62-year-old female with history of anxiety and depression presenting to the emergency department from [facility] was making suicidal comments TO COUNSELOR. Patient reports that she was just say to get away from her neighbors. Does not feel suicidal at this time. Denies homicidal ideation. Denies any drug or alcohol use. Denies chest pain palpitations and shortness of breath. No specific plan. Denies active suicidal ideation at this time. No homicidal ideation. Denies abdominal pain. No change in bowel habits. (Edna Carpenter) Past History Travel History Traveled to [place] past 21 day No Medical History Any Pertinent Medical History? see below for history Neurological: NONE EENT: NONE Cardiovascular: hypertension Respiratory: asthma, bronchitis Gastrointestinal: NONE Hepatic: NONE Renal: NONE Musculoskeletal: R HIP/FEMUR/PELVIC FX/SX Psychiatric: schizoaffective disorder, borderline personality disorder, tobacco use disorder. 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 No (Edna Carpenter) Review of Systems Review of Systems Constitutional: Reports: no symptoms. Comments Review of systems: See HPI, All other systems negative. Constitutional, no chills fever or weight loss HEENT: No visual changes no sore throat no congestion Cardiovascular: No chest pain ,palpitation , orthopnea or ankle swelling Skin, no jaundice no rashes Respiratory: No dyspnea cough sputum or hemoptysis GI: No nausea no vomiting : No dysuria No hematuria Muscle skeletal: no back pain, no neck pain, Neurologic: No numbness no confusion Psych: Positive stress and anxiety Heme/endocrine: No bruising no bleeding no polyuria or polydipsia Immunology: No splenectomy or history of AIDS (Edna Carpenter) Physical Exam Physical Exam General Appearance: well developed/nourished, no apparent distress, awake, comfortable Neurological/Psychiatric: oriented x 3 Comments: Well-developed well-nourished person in no acute distress HEENT: Atraumatic, normocephalic Neck: Normal inspection Back: Nontender Cardiovascular: Regular rate and rhythms no murmurs rubs or gallops, normal JVP Respiratory: Chest nontender. No respiratory distress.breath sounds clear to auscultation bilaterally Extremity: No edema Neuro: Alert oriented x3 Skin: No appreciable rash on exposed skin, skin is warm and dry. Psych: Drowsy but arousable, calm and cooperative, memory and judgment is normal. SAD PERSONS Done? patient not suicidal (Edna Carpenter) Progress Differential Diagnosis: major depressive disorder, genital anxiety disorder, polysubstance abuse, borderline personality Plan of Care: Orders Procedure Date/time Status Heart Healthy Diet 12/31 B Active Add-on Test (ER Only) 12/30 181 Active Continuous Observation Monitor 12/30 1714 Active URINE DRUG SCREEN FOR ER ONLY 12/30 1714 Complete TSH REFLEX 12/30 1714 Complete TEGRETOL LEVEL 12/30 171 Complete ETHANOL 12/30 1714 Complete COMPREHENSIVE METABOLIC PANEL 12/30 1714 Complete CBC WITHOUT DIFFERENTIAL 12/30 1714 Complete ED CRISIS PSYCH CONSULT 12/30 1714 Active Current Medications Sig/Keesha Start time Last Medication Dose Stop Time Status Admin Aripiprazole 15 MG DAILY 12/31 0900 UNVr 12/31 (Abilifjessie) 0849 Benztropine Mesylate 0.5 MG BID 12/31 899 UNVr 12/31 (Cogentin 0.5 MG Tab) 0849 Carbamazepine 400 MG BID 12/31 899 UNVr 12/31 (Tegretol) 0849 Fluticasone 2 PUF BID 12/31 0900 AC 12/31 Propionate 0849 (Flovent) Levothyroxine Sodium 0.15 MG DAILY AC 12/31 07 UNVr 12/31 (Synthroid) 0712 Ibuprofen 800 MG 4 TIMES/DAY PRN 12/31 0145 AC (Motrin) Lorazepam 1 MG Q6P PRN 12/31 0145 AC (Ativan) Laboratory Tests 12/30/17 1850: Urine Opiates Screen < 100, Methadone Screen < 40, Barbiturate Screen < 60, Ur Phencyclidine Scrn < 6.00, Amphetamines Screen < 100, U Benzodiazepines Scrn < 85, Urine Cocaine Screen < 50, Urine Cannabis Screen < 5.00 12/30/17 1820: Anion Gap 12, Estimated GFR 46 L, BUN/Creatinine Ratio 32.5 H, Glucose 76, Calcium 9.1, Total Bilirubin 0.8, AST 26, ALT 31, Alkaline Phosphatase 82, Total Protein 7.5, Albumin 4.1, Globulin 3.4, Albumin/Globulin Ratio 1.2, TSH &T3 & Free T4 Intrp 1.980, CBC w Diff NO MAN DIFF REQ, RBC 3.89 L, MCV 94.0, MCH 31.8 H, MCHC 33.8, RDW 15.0 H, MPV 7.3 L, Gran % 64.9, Lymphocytes % 21.6, Monocytes % 10.0 H, Eosinophils % 2.7, Basophils % 0.8, Absolute Granulocytes 2.9, Absolute Lymphocytes 1.0 L, Absolute Monocytes 0.4, Absolute Eosinophils 0.1, Absolute Basophils 0, Carbamazepine 10.5, Serum Alcohol 16.0 Hand-Off Endorsed To: Johny Faulkner MD Endorsed Time: 1942 Pending: consult, labs Comments: 12/30/2017 7:43:46 [address] patient'sDr. Lucie pending crisis consultation. (Edna Carpenter) Hand-Off Endorsed To: Petros Mcclendon MD Endorsed Time: 699 Pending: consult (Johny Faulkner MD) Comments: Cleared by psychiatry for discharge. (Petros Mcclendon MD) Departure Departure Clinical Impression Primary Impression: Mood disorder Referrals: Makenna Gonzalez APRN (PCP/Family) (Edna Carpenter) PA/COAT BASTER Co-Sign Statement Statement: ED Attending supervision documentation- [] I saw and evaluated the patient. I have also reviewed all the pertinent lab results and diagnostic results. I agree with the findings and the plan of care as documented in the PA's/COAT BASTER's documentation. [x] I have reviewed the ED Record and agree with the PA's/COAT BASTER's documentation. [] Additions or exceptions (if any) to the PAs/COAT BASTER's note and plan are summarized below: [] (Lucie PENA,Johny Betancourt) Departure Time of Disposition: 1023 Disposition: HOME OR SELF CARE Condition: Stable Additional Instructions: Follow up with the recommendations of the bottle line worker. Departure Forms: General Discharge Information (Petros Mcclendon MD)
[2017-12-30 18:35] LABS: ABSOLUTE BASOPHIL COUNT 0 /CUMM (0.0-0.2); ABSOLUTE EOSINOPHIL COUNT 0.1 /CUMM (0.0-0.7); ABSOLUTE GRANULOCYTE CT 2.9 /CUMM (1.4-6.5); ABSOLUTE MONOCYTE COUNT 0.4 /CUMM (0.10-0.60); BASOPHIL % 0.8 % (0.0-2.0); EOSINOPHIL % 2.7 % (0-5); GRANULOCYTE % 64.9 % (42.2-75.2); HEMATOCRIT 36.5 % (37-47); MEAN CORPUSCULAR HGB 31.8 PG (27.0-31.0); MEAN CORPUSCULAR HGB CONC 33.8 G/DL (33.0-37.0); MEAN PLATELET VOLUME 7.3 FL (7.4-10.4); PLATELET COUNT 208 /CUMM (130-400); RED BLOOD CELL CT 3.89 /CUMM (4.20-5.40); WHITE BLOOD CELL COUNT 4.5 /CUMM (4.8-10.8)
--- NOTE | 2017-12-31 10:21 | ED PSYCH CRISIS CONSULTATION ---
Crisis Consult Basic Assessment Date of Consult: 12/31/17 Responsible Person/Accompanied By: self/biba Insurance Authorization: Insurance #1: Insurance name: MEDICARE A Phone number: Policy number: [id number] Group number: Authorization number: ED Provider: Patient's ED Provider: Edna Carpenter Primary Care Physician: Patient's PCP: Makenna Gonzalez APRN PCP's Current Psychiatrist: Arabella Rodriguez APRN Care Chief Complaint: Psychiatric Related Complaint Patient's Quote: The neighbors can't stand my smoking. They are harrassing me. Present Illness: Pt is a 62 yo female biba to [place] ED last evening for agitation. Pt has a long hx of psychiatric admissions at [place] (last 2012) and treatment at [facility] for mood dysregulation and psychotic thought related to schizoaffective d/ o. Pt reports (corroborated by Care worker- see collateral note) recently moving to a new apartment and has been having conflicts with her neighbors who don't like her smoking. Pt reports they had a major confrontation that caused her to become anxious and agitated so she went to Care for support and they recommended she go to [place] ED for psych eval. Pt was compliant with the plan. Pt denies current SI/HI. Pt reports no hx of suicide attempts. She reports prior hx of superficial cutting but no incidents past 3 yrs. She reports last SI was "a long time ago". Pt admits to hearing voices but reports they aren't harmful now that she knows how to cope and ignore them; she states smiling "I say devil...get out of here". Pt denies depression but reports yesterday experiencing anxiety 6/10. She reports today anxiety 0/10. Pt reports her doctor allows her to drink 1 beer per/day and denies other substance use "No way". Pt presents as agreeable, somewhat disorganized, tangential, pressured and Ox3.Patient reports enjoying spending her time with her boyfriend, walking to store, getting scratch tickets and smoking in the park. Patient demonstrates symptoms consistent with an individual with a chronic psychotic disorder, including mild thought disorganization, but does not evidence imminent dangerousness to herself or others, nor does she appear gravely disabled. Case reviewed with Dr Pérez. Recommendation for pt to discharge and return to [facility] for ongong outpatient services. [facility] will work with pt to schedule a more imminent appointment that the January 25 date currently held with Arabella Rodriguez APRN. Patient's Address: [address] [place] [address] [place] [address] Other Phone Number: Who Do You Live With? Patient/Self Family/Informants Interviewed: collateral provided by Care worker Gissell Salmon. See collateral note Allergies - Coded Allergies: quetiapine (PER PT CANT REMEMBER 11/10/15) fluphenazine (STARES AT CEILING, WEIRD GYRATIONS PER PT 11/10/15) haloperidol (ROCKING BACK AND FORTH 11/10/15) lithium (GAINS A LOT OF WEIGHT PER PT 11/10/15) molindone (AKATHESIA 11/10/15) venom-honey bee (BEE VENOM (HONEY BEE)) (BEE VENOM WITH AKATHESIA 11/10/15) Current Medications - Scheduled Medications Aripiprazole (Abilify) 15 MG TABLET 1 TAB PO DAILY BIPOLAR 30 Days (Reported) Entered as Reported by Christine Cleveland on 07/21/14 0748 Benztropine Mesylate 0.5 MG TAB 1 TAB PO BID MENTAL HEALTH #60 (Reported) Entered as Reported by Kori Hudson on 10/29/151934 Calcium Carbonate (Calcium 600) 600 MG TAB 1 TAB PO BID SUPPLEMENT 30 Days Prescribed by JAKUB VASQUEZ on 11/03/15 Carbamazepine (Tegretol) 200 MG TAB 400 MG PO BID "FITS" #120 (Reported) Entered as Reported by Kori Hudson on 10/29/151934 Cholecalciferol (Vitamin D3) 1,000 IU TAB 1,000 IU PO DAILY supplement 30 Days Prescribed by JAKUB VASQUEZ on 11/03/15 Levothyroxine Sodium 0.15 MG TAB 1 TAB PO DAILY THYROID 30 Days (Reported) Entered as Reported by Christine Cleveland on 07/21/14 0748 Lorazepam 1 MG TAB 1 TAB PO BID ANXIETY #60 (Reported) Entered as Reported by Kori Hudson on 10/29/151935 Meloxicam 7.5 MG TAB 1 TAB PO BID ARTHRITIS #60 (Reported) Entered as Reported by Kori Hudson on 10/29/151936 MOMETASONE/FORMOTEROL (Dulera 200 Mcg/5 Mcg Inhaler) 1 ROMAIN ROMANI 2 PUF INH BID COPD #13 (Reported) Entered as Reported by Kori Hudson on 10/29/151932 Prednisone 10 MG TAB 1 TAB PO SI COPD #12 TAB Prescribed by JAKUB VASQUEZ on 11/03/15 PROPRANOLOL HCL (Propranolol HCl) 20 MG TAB 1 TAB PO BID HYPERTENSION ( Reported) Entered as Reported by Contreras Bray MD on 10/29/152215 SERTRALINE HCL (Sertraline Hydrochloride) 25 MG TAB 1 TAB PO DAILY MENTAL HEALTH #30 (Reported) Entered as Reported by Kori Hudson on 10/29/151932 Simvastatin (Zocor 40MG Tab) 40 MG TAB 1 TAB PO QPM CHOLESTEROL #60 (Reported ) Entered as Reported by Kori Hudson on 10/29/151937 Tiotropium [place] (Spiriva) 18 MCG CAP 1 CAP INH DAILY COPD #30 (Reported) Entered as Reported by Kori Hudson on 10/29/151932 Scheduled PRN Medications Albuterol Sulfate (Albuterol Sulfate Hfa) 0.09 MG/Actuation ROMAIN 2 PUFF INH Q4- 6 PRN PRN SHORTNESS OF BREATH #1 ROMAIN Prescribed by Edna Carpenter on 08/17/15 OXYCODONE HCL/ACETAMINOPHEN (Percocet 5-325 MG Tablet) 325 MG/5 MG TAB 1 TAB PO Q8P PRN pain #10 TAB Prescribed by JAKUB VASQUEZ on 11/03/15 Tylenol With Codeine (Tylenol With Codeine #3 Tablet) 300 MG-30 MG TABLET 1 TAB PO Q8P PRN PAIN #20 TAB Prescribed by Dayton Garza MD on 07/05/16 Laboratory Results: Laboratory Tests 12/30/17 1850: Urine Opiates Screen < 100, Methadone Screen < 40, Barbiturate Screen < 60, Ur Phencyclidine Scrn < 6.00, Amphetamines Screen < 100, U Benzodiazepines Scrn < 85, Urine Cocaine Screen < 50, Urine Cannabis Screen < 5.00 12/30/17 1820: Anion Gap 12, Estimated GFR 46 L, BUN/Creatinine Ratio 32.5 H, Glucose 76, Calcium 9.1, Total Bilirubin 0.8, AST 26, ALT 31, Alkaline Phosphatase 82, Total Protein 7.5, Albumin 4.1, Globulin 3.4, Albumin/Globulin Ratio 1.2, TSH &T3 & Free T4 Intrp 1.980, CBC w Diff NO MAN DIFF REQ, RBC 3.89 L, MCV 94.0, MCH 31.8 H, MCHC 33.8, RDW 15.0 H, MPV 7.3 L, Gran % 64.9, Lymphocytes % 21.6, Monocytes % 10.0 H, Eosinophils % 2.7, Basophils % 0.8, Absolute Granulocytes 2.9, Absolute Lymphocytes 1.0 L, Absolute Monocytes 0.4, Absolute Eosinophils 0.1, Absolute Basophils 0, Carbamazepine 10.5, Serum Alcohol 16.0 Past History Past Medical History Neurological: NONE EENT: NONE Cardiovascular: hypertension Respiratory: asthma, bronchitis Gastrointestinal: NONE Hepatic: NONE Renal: NONE Musculoskeletal: R HIP/FEMUR/PELVIC FX/SX Psychiatric: schizoaffective disorder, borderline personality disorder, tobacco use disorder. 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 Physical Limitations (Interventions): Right trochanter partial-fracture 10/29/2015; fracture was pinned on 10/31/2015. Psychiatric Treatment History Psych Treatment Psychiatric Treatment Yes Inpatient Treatment Yes Outpatient Treatment Yes Location of Treatment [facility] [phone]; [facility] outpatient with [facility] Reason for Treatment mood dysregulation Dates of Treatment pt reports chronic tx since age 25 Response to Treatment pt has been stable in community treatment. Last inpatient 2012. Diagnosis by History: Schizoaffective disorder bipolar type History of benzodiazepine dependence History of schizotypal personality disorder with borderline, narcissistic, histrionic and paranoid traits Substance Use/Abuse History Drug Use/Abuse Substances Used/Abused Yes Substance Used/Abused Alcohol How much used/taken 1 beer How often 1x/day or less Substance Abuse Treatment Substance Abuse Treatment Past Substance Abuse [place] No Inpatient Treatment No Outpatient Treatment No Comments: reports occasional etoh/1x/day. Denies substance use. Current Mental Status Mental Status Orientation: Person, Place, Situation Affect: Anxious, Manic Speech: Hyper-verbal, Pressured Neuro-vegetative: WNL Appearance Appearance- Dress/Hygiene: hospital scrubs; groomed; recently manicured finger nails Behaviors Thought Process: Flight of Ideas, Tangential Thought Content: Auditory Hallucinations (not command/not harmful) Memory: WNL Insight: Fair SI/HI Risk Assessment Past Suicidal Ideation/Attempts No Current Suicidal Ideation/Att No Past Homicidal Ideation/Att: No Current Homicidal Ideation/Attempts No Degree of Intent: None Gravely Disabled: Poor Impulse Control Risk Factors: SA/MH hospitalized, poor impulse control, lives alone Lethality Ratin PTSD Checklist PTSD Done? patient declined ED Management Sitter: Yes Restraints: No DSM5/PS Stressors/Medical Prob Diagnosis' (DSM 5, Stressors, Medical): Schizoaffective F25.0 new housing neighbor conflict Current GAF: 40 Departure Disposition Psych Medical Clearance Date: 12/31/17 Medically Cleared at: 0800 Time Started: 0800 Time Ended: 0845 Psychiatrist Consulted: Johny Pérez MD Date Disposition Established: 12/31/17 Time Disposition Established: 1000 Plan for Disposition - Modality: Outpatient Facility: [facility] Referrals Makenna Gonzalez APRN (PCP/Family)
--- NOTE | 2017-12-31 10:25 | ED PSY CRISIS COLLATERAL NOTE ---
Collateral Note Collateral Note Family/Inform/William Contacts: Spoke with Gissell from [facility]. Gissell and staff felt that patient had done the right thing by calling [facility] when she was feeling overwhelmed. Patient has some issues to deal with, including adjusting to a new apartment, which is a good move, but provides some challenges. The landlord for the building has indicated that Magi should smoke in the kitchen of her apartment; however another tenant complains because he can smell the smoke. Patient then smokes outside, and then is in violation of the agreement. So, this was stressful situation which caused the call and hospital visit yesterday, which everyone involved sees as the best option for her to have chosen. Per Gissell at [facility], patient be having a change of prescriber, but they will move next med appointment up from January 28, 2018 as was set a while ago. Additionally, patient's male friend of many years is scheduled for surgery at [facility] for removal of kidney. Patient is anxious about this as well, but family service caseworker, Sharad plans to bring her down for a visit. Patient's main complaint arises from her income of $700.00 per month which she knows is less than many, and she reports that has difficult time getting by on that. Patient happy with plan for discharge, and she will be picked up by [facility] staff today at 11 a. m.
[2017-12-31 10:32] VITALS: BP 144/80
== END 2017-12-31 10:41 ==
LOC: ERH 16:38
PROVIDERS: Physician Assistant
DX: F39 Unspecified mood [affective] disorder (principal)
CPT/HCPCS: 1263; 80307; G0463; G0480; J3490

== ENCOUNTER 2018-03-12 21:53 | Inpatient (IN) | payer OTHER, MEDICARE ==
[~2018-03-12] VITALS: Ht 160 cm; Wt 79.8 kg
[~2018-03-12 21:53] MED LIST changes: +ATIVAN0.5 M1 PO; +BENZTROPINE ME0.5 M1 PO; -BENZTROPINE ME0.5 MG PO; +GEODON60 MG PO; -LEVOTHYROXINE0.15 M1 PO; +LEVOTHYROXINE150 MCG PO; +LEXAPRO5 M1 PO; -LORAZEPAM1 MG PO; +PROPRANOLOL HCL20 M1 PO; +TEGRETOL200 M1 PO; -TEGRETOL200 MG PO; -ZOCOR 40MG TAB40 MG PO; +ZOCOR40 M1 PO; +ZOLOFT25 M1 PO
--- NOTE | 2018-03-12 21:55 | ED DYSPNEA/ASTHMA COMPLAINT ---
History of Present Illness General Chief Complaint: Dyspnea (COPD, CHF, Other) Stated Complaint: BIBA SOB Source: patient, old records, EMS Exam Limitations: no limitations Vital Signs & Intake/Output Vital Signs & Intake/Output Vital Signs Date Time Temp Pulse Resp B/P B/P Pulse O2 O2 Flow FiO2 Mean Ox Delivery Rate 03/12 2305 74 22 178/88 96 Nasal 3.0L Cannula 03/12 2230 97 BIPAP 03/12 2158 98.2 102 24 187/117 100 BIPAP Allergies Coded Allergies: quetiapine (PER PT CANT REMEMBER 01/26/18) fluphenazine (STARES AT CEILING, WEIRD GYRATIONS PER PT 01/26/18) lithium (GAINS A LOT OF WEIGHT PER PT 01/26/18) molindone (AKATHESIA 01/26/18) venom-honey bee (BEE VENOM (HONEY BEE)) (BEE VENOM WITH AKATHESIA 01/26/18) Reconcile Medications Benztropine Mesylate 0.5 MG TABLET 1 TAB PO BID MENTAL HEALTH (Reported) Carbamazepine (Tegretol) 200 MG TABLET 2 TAB PO BID MENTAL HEALTH (Reported) Escitalopram Oxalate (Lexapro) 5 MG TABLET 1 TAB PO DAILY MENTAL HEALTH ( Reported) Levothyroxine Sodium 150 MCG TABLET 1 TAB PO DAILY AC THYROID (Reported) Lorazepam (Ativan) 0.5 MG TABLET 1 TAB PO DAILY ANXIETY (Reported) Propranolol HCl 20 MG TABLET 1 TAB PO BID HTN (Reported) Sertraline HCl (Zoloft) 25 MG TABLET 1 TAB PO DAILY MENTAL HEALTH (Reported) Simvastatin (Zocor*) 40 MG TABLET 1 TAB PO QPM CHOLESTEROL (Reported) Ziprasidone Hydrochloride (Geodon) 60 MG CAPSULE 1 CAP PO BID MENTAL HEALTH ( Reported) Triage Nurses Notes Reviewed? yes HPI: Patient called 911 for increasing difficulty breathing since yesterday. Patient does have a history of COPD but she continues to smoke. Patient is not on home O2. Upon EMS arrival they state that the patient was speaking 1-2 word sentences. They gave HER-2 DuoNeb and then put her on BiPAP. Currently patient is feeling much better and is able to speak complete sentences. Patient denies any fevers or chills. States she has a chronic nonproductive cough but is not worse than normal. She denies any chest pain or orthopnea. Past History Travel History Traveled to [place] past 21 day No Medical History Any Pertinent Medical History? see below for history Neurological: NONE EENT: NONE Cardiovascular: hypertension Respiratory: asthma, bronchitis Gastrointestinal: NONE Hepatic: NONE Renal: NONE Musculoskeletal: R HIP/FEMUR/PELVIC FX/SX Psychiatric: schizoaffective disorder, borderline personality disorder, tobacco use disorder. 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 No Review of Systems Review of Systems Constitutional: Reports: no symptoms. EENTM: Reports: no symptoms. Respiratory: Reports: see HPI, cough, short of breath, wheezing. Cardiovascular: Reports: no symptoms. GI: Reports: no symptoms. Genitourinary: Reports: no symptoms. Musculoskeletal: Reports: no symptoms. Skin: Reports: no symptoms. Neurological/Psychological: Reports: no symptoms. Hematologic/Endocrine: Reports: no symptoms. Immunologic/Allergic: Reports: no symptoms. All Other Systems: Reviewed and Negative Physical Exam Physical Exam General Appearance: well developed/nourished, alert, awake, anxious, moderate distress Head: atraumatic, normal appearance Eyes: Bilateral: PERRL, EOMI. Ears, Nose, Throat: normal pharynx, normal ENT inspection, hearing grossly normal Neck: normal inspection, supple, full range of motion Respiratory: decreased breath sounds, wheezing, respiratory distress Cardiovascular: regular rate/rhythm, normal peripheral pulses Gastrointestinal: normal bowel sounds, soft, non-tender, no organomegaly Extremities: normal inspection, normal capillary refill, normal range of motion, no edema Neurologic/Psych: no motor/sensory deficits, awake, alert, oriented x 3, normal mood/affect Skin: intact, normal color, warm/dry Lymphatic: no anterior cervical tran Core Measures ACS in differential dx? No CVA/TIA Diagnosis No Sepsis Present: No Sepsis Focused Exam Completed? No Progress Differential Diagnosis: asthma, bronchitis, COPD, pneumonia Plan of Care: Orders Procedure Date/time Status Heart Healthy Diet 03/13 B Active LACTIC ACID 03/13 0057 Active ED Holding Orders 03/12 234 Active Admit to inpatient 03/12 234 Active Vital Signs 03/12 2340 Active Code Status 03/12 2340 Active BIPAP 03/12 2159 Complete ARTERIAL BLOOD GAS (GEN) 03/12 2159 Complete BLOOD CULTURE 03/12 2157 Active TROPONIN LEVEL 03/12 2157 Complete LACTIC ACID 03/12 2157 Complete COMPREHENSIVE METABOLIC PANEL 03/12 2157 Complete CBC WITHOUT DIFFERENTIAL 03/12 2157 Complete EKG 03/12 2157 Active BIPAP 03/12 UNK Complete Current Medications Sig/Keesha Start time Last Medication Dose Stop Time Status Admin Ondansetron HCl 4 MG ONCE ONE 03/12 2330 UNVr 03/12 (Zofran) 03/12 2331 232 Laboratory Tests 03/12/180: pH 7.32 L, pCO2 42, pO2 92, HCO3 21, ABG O2 Sat (Measured) 94.0 L, Carboxyhemoglobin 3.0, O2 Concentration % 30, Respiration Rate 18, O2 Delivery Method BIPAP, Vent Mode ST, Expiratory Pressure 6, Inspiratory Pressure 14, Phlebotomy Draw Site RIGHT RADIAL 03/12/180: Anion Gap 10, Estimated GFR 45 L, BUN/Creatinine Ratio 21.7, Glucose 314 H, Lactic Acid 1.4, Calcium 9.5, Total Bilirubin 0.7, AST 35, ALT 53 H, Alkaline Phosphatase 105, Troponin I 0.05, Total Protein 7.9, Albumin 4.2, Globulin 3.7, Albumin/Globulin Ratio 1.1, CBC w Diff NO MAN DIFF REQ, RBC 4.41, MCV 96.8, MCH 32.2 H, MCHC 33.3, RDW 14.1, MPV 7.4, Gran % 81.2 H, Lymphocytes % 11.6 L, Monocytes % 6.0, Eosinophils % 0.8, Basophils % 0.4, Absolute Granulocytes 7.4 H, Absolute Lymphocytes 1.1 L, Absolute Monocytes 0.5, Absolute Eosinophils 0.1 , Absolute Basophils 0 Microbiology 03/12 231 BLOOD: Blood Culture - RECD 03/12 2227 BLOOD: Blood Culture - RECD Diagnostic Imaging: Viewed by Me: Radiology Read. Discussed w/RAD: Radiology Read. Initial ED EKG: NSR, LBBB, PRIOR EKG SHOWED SR WITH LVH AND IVCD Prior EKG: changed Rhythm Strip: normal sinus rhythm Departure Departure Disposition: STILL A PATIENT Condition: Stable Clinical Impression Primary Impression: COPD exacerbation Secondary Impressions: Acute electrocardiogram changes Referrals: Makenna Gonzalez APRN (PCP/Family) Departure Forms: Customer Survey General Discharge Information Admission Note Spoke With: Aj Shin MD Documentation of Exam: Documentation of any treatments & extenuating circumstances including Concerns Regarding Discharge (functional status, medication knowledge or non-compliance, living conditions, etc.) that warrant an admission rather than observation: [IV antibiotics, IV steroids, nebulizers, respiratory treatment, pulmonary consultation, cardiology consultation, serial enzymes, telemetry monitoring] Critical Care Note Critical Care Note Critical Care Time: mins: (90 MIN)
[2018-03-12 22:07] LABS: ABSOLUTE BASOPHIL COUNT 0 /CUMM (0.0-0.2); ABSOLUTE EOSINOPHIL COUNT 0.1 /CUMM (0.0-0.7); ABSOLUTE GRANULOCYTE CT 7.4 /CUMM (1.4-6.5); ABSOLUTE LYMPH COUNT 1.1 /CUMM (1.2-3.4); ABSOLUTE MONOCYTE COUNT 0.5 /CUMM (0.10-0.60); BASOPHIL % 0.4 % (0.0-2.0); EOSINOPHIL % 0.8 % (0-5); GRANULOCYTE % 81.2 % (42.2-75.2); HEMATOCRIT 42.7 % (37-47); MEAN CORPUSCULAR HGB 32.2 PG (27.0-31.0); MEAN CORPUSCULAR HGB CONC 33.3 G/DL (33.0-37.0); MEAN CORPUSCULAR VOLUME 96.8 FL (81.0-99.0); MEAN PLATELET VOLUME 7.4 FL (7.4-10.4); PLATELET COUNT 254 /CUMM (130-400); RBC DISTRIBUTION WIDTH 14.1 % (11.5-14.5); RED BLOOD CELL CT 4.41 /CUMM (4.20-5.40); WHITE BLOOD CELL COUNT 9.1 /CUMM (4.8-10.8)
--- NOTE | 2018-03-12 23:05 | RADIOLOGY REPORT ---
EXAMINATION: XR PORTABLE CHEST CLINICAL INFORMATION: Dyspnea COMPARISON: 02/21/2018 TECHNIQUE: Portable frontal view of the chest was obtained. FINDINGS: Cardiac leads overlie the chest. The lungs are well expanded. There is no focal consolidation, edema, or effusion. Mild bronchial wall thickening present. No pneumothorax. The cardiomediastinal silhouette is within normal limits. No acute osseous abnormality. IMPRESSION: No dense consolidation. Bronchial wall thickening can be seen with a small airways process such as asthma or atypical/viral infection.
--- NOTE | 2018-03-13 00:06 | History & Physical ---
Ngozi Corea 03/13/18 0005: General Information and HPI History of Present Illness: Sarabjit Sotelo is a 63 YO female with a PMHx. of shizoaffective and bipolar disoder, anxiety, COPD, hypertension, hyperlipidemia, breast cancer, and hypothyroidism who presents to the ED with a chief complaint of "dyspnea" that has gotten worse over the past three days. Patient states she had trouble breathing before coming to the ED, which she states has since improved with the breathing treatments. Patient admits to also having diarrhea for the past two days and nausea but denies chest pain, palpitations, and lightheadedness. Patient also notes that she has been gaining weight recently. Patient says she has smoked tobacco cigarettes 2 packs per day for the past 48 years since she was 15 years old. Patient also admits to drinking alcohol occasionally. 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 Patient is unable to identify her PCP. Patient says she follows up with her psychiatrist. Past History Travel History Traveled to [place] past 21 day No Medical History Neurological: NONE EENT: NONE Cardiovascular: hypertension Respiratory: asthma, bronchitis Gastrointestinal: NONE Hepatic: NONE Renal: NONE Musculoskeletal: R HIP/FEMUR/PELVIC FX/SX Psychiatric: schizoaffective disorder, borderline personality disorder, tobacco use disorder. 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 EENTM: Denies: visual changes. Cardiovascular: Denies: chest pain, orthopena, palpitations. Respiratory: Reports: short of breath. Denies: orthopnea. GI: Reports: diarrhea, nausea. Denies: abdominal pain, vomiting. Genitourinary: Denies: dysuria. Musculoskeletal: Denies: back pain, joint pain. Skin: Denies: no symptoms. Neurological/Psychological: Denies: headache. Exam & Diagnostic Data Last 24 Hrs of Vital Signs/I&O Vital Signs Date Time Temp Pulse Resp B/P B/P Pulse O2 O2 Flow FiO2 Mean Ox Delivery Rate 03/13 0036 97.8 97 18 138/82 97 Nasal 3.0L Cannula 03/12 2305 74 22 178/88 96 Nasal 3.0L Cannula 03/12 2230 97 BIPAP 03/12 2158 98.2 102 24 187/117 100 BIPAP Intake & Output 03/13 0800 07 0000 03/12 1600 Intake Total Output Total Balance Patient 177 lb Weight Weight Reported by Patient Measurement Method Physical Exam General Appearance Alert, Oriented X3 (hx. of psychiatric disturbance), Cooperative, No Acute Distress Skin No Rashes Skin Temp/Moisture Exam: Warm/Dry HEENT Atraumatic, PERRLA Neck Supple, No JVD Cardiovascular Normal S1, Normal S2, No Murmurs Lungs Normal Air Movement, crackles auscultated Abdomen Soft, No Tenderness Neurological Strength at 5/5 X4 Ext, Normal Tone Extremities No Edema, Normal Pulses Assessment/Plan Assessment: Assessment: 1. COPD exacerbation/Acute on Chronic Bronchitis - acute worsening of respiratory symptoms beyond baseline, treatment to decrease work of breathing, wheezing and associated inflammation 2. h/o schizoaffective disorder/anxiety/bipolar disorder 3. h/o hyperlipidemia 4. h/o hypertension 5. h/o hypothyrodisim 6. r/o PNA/NSTEMI/Pleural Effusion Plan: * COPD Exacerbation -Admit patient to telemetry for cardiac monitoring - Oxygen Therapy: Target 92% O2 saturation. Check ABG follow-up to assess for hypercapnea. - Bronchodilators: Albuterol q4 + prn - Steroids: Budesonide to improve oxygenation and faster recovery time * EKG: LBBB (10 PM and 2:30 PM reports), Follow up EKG at 5 AM and 12 PM; Follow Troponin at 2:30 AM was 0.91 (H), next scheduled for 12 PM (original at 10 pm was 0.05) -Aspirin 325 once; consider Heparin gtt * CXR: No dense consolidation. Bronchial wall thickening can be seen with a small airways process such as asthma or atypical/viral infection. * Smoking Cessation Counseling to improve functional outcome via lifestyle modications * Nausea/Vomiting - Zofran/Tigan prn * DVT PPx. As Ranked By This Provider Problem List: 1. COPD exacerbation 2. Schizophrenia 3. Bipolar disorder, unspecified 4. Weight gain due to medication Core Measures/Misc (05/23) Acute Coronary Syndrome ACS Diagnosis: No Congestive Heart Failure Congestive Heart Failure Diagnosis No Cerebrovascular Accident CVA/TIA Diagnosis: No VTE (View Protocol) VTE Risk Factors Acute Medical Illness No Mechanical VTE Prophylaxis d/t N/A MechProphylax Ordered No VTE Pharm Prophylaxis d/t NA PharmProphylax ordered Sepsis (View protocol) Sepsis Present: No If YES complete Sepsis Event Note If YES complete Sepsis Event Note Oksana Reyna 03/13/18 0134: Core Measures/Misc (05/23) Sepsis (View protocol) If YES complete Sepsis Event Note If YES complete Sepsis Event Note Resident Review Statement Resident Statement: examined this patient, discussed with rn international, agreed with rn international, amended to note Other Findings: Ms Sotelo is a 63 year old woman w/ a PMHx of hypertension, asthma, chronic bronchitis (not on any home oxygen), schizoaffective disorder, border personality disorder, chronic tobacco use, hypothyroidism, breast cancer status post lumpectomy came to the ER with a chief concern of acute onset of dyspnea x 3 days. Continues to have chronic nonproductive cough. No fever, chills. No chest pain, orthopnea. She was known to be in her usual state of health 2 wks ago, and started developing dyspnea. No abdominal pain, dysurea. No dysurea. No pedal edema. No previous cardiac history, and doesnt see a psychiatrist. Fam Hx of CAD in father. As soon as she arrived to the ER, she was placed on BiPAP 14/6, respiratory 18, 30% O2, and was speaking full sentenses. At the time of admission-temperature 98.2, pulse rate 102-->74, respiration 22, pulse ox 100% BiPAP-->96% 3L. On exam: General Exam: AAOx3, No acute distress, Skin: No rashes, no breakdown; HEENT: PERRLA, EOMI;Neck: Supple, No JVD;No cervical lymphadenopathy;CVS: Reg Rate, Normal S1,S2, No MGR;Resp: decreased air entry, ronchi + rales + ;Abdomen: Soft, No tenderness, Normal Bowel Sounds;Neuro: Normal Speech, Strength 5/5 b/l x 4 extremities, Sensation intact, CN III-XII NL, Reflexes 2+;Extremities: No cyanosis, no pedal edema. EKG revealed NSR, LAD, LBBB, Unable to assess the ST seg. Chest x ray- No dense consolidation. Bronchial wall thickening can be seen with a small airways process such as asthma or atypical/viral infection. Pertinent lab findings: WBC 9.1, hemoglobin 14.2, platelet count 254. Sodium 130, potassium 5.2, chloride 93 BUN 26, creatinine 1.2(baseline 1.0), glucose 314. Lactic acid 1.4 AST 35, ALT 53, alkaline phosphatase 105 Troponin I-0.05--> ABG-pH 7.32, PCO2 42, PO2 92 (BiPAP 30% oxygen) Last echo : 04 December 2012 1. Minimal aortic sclerosis is present in a tricuspid aortic valve with no valvular stenosis or insufficiency. 2. Minimal thickening of the mitral leaflets is present with minimal anular calcification and minimal mitral insufficiency. 3. There is no significant pericardial fluid present. 4. The left ventricular chamber size is normal. There is mild left ventricular hypertrophy present with assymmetric hypertrophy of the interventricular septum. The ejection fraction is normal with no visible resting wall motion abnormalities. 5. The right heart structures are grossly normal with minimal tricuspid insufficiency present. Problem list: 1. COPD exacerbation 2. r/o Pneumonia 3. new onset LBBB ? 4. h/o Schizoaffective disorder/anxiety/depression 5. h/o hypothyroidism mMRC dyspnea scale 4. Etiology in this case for airflow obstruction is likely secondary to chronic bronchitis. Frequent exacerbations are associated w/ greater mortality, faster decline in lung function likely due to continued smoking. Etiology for acute exacerbation is likely an infection likely viral infection. Differential diagnosis considered at the time of admission-SC, pneumonia. In regards to her new onset LBBB, this could be relatively new. Given her absent chest pain, this still should be treated with caution; if she develops any chest pain or dyspnea this needs to be treated as SC until proven otherwise. As per mMRC dyspnea scale 4, the patient falls and Gold criteria-c ( no recent PFTs). Plan: -Advised the patient to telemetry -C BC to monitor for infection -Elevated hematocrit is expected -Arterial blood gas, if indicated -Check proBNP to differentiate between COPD and CHF -Lower respiratory cultures -supplemental oxygen; maintain oxygen saturation in between 90 to 92% -monitor for CO2 narcosis, monitor for AMS, clinical tiring -The patient has hypercarbic respiratory failure ventilator support by an NIPPV might be needed -Bronchodilator therapy with albuterol and ipratropium -Start iv predniosne 40 Q8 -Consider starting antibiotics, if the pt has fever or increased sputum production or worsening dyspnea -Smoking cessation counseling, vaccination status especially pneumo -Pulm consult -Serial EKGs and troponins; ASA 325 x 1. -Check TSHR. -Digital Hardware Design Engineer evaluation and defer the decision to get Echo to the psychiatrist Full code Regular diet Med rec- please confirm the doses of psych meds. Aj Shin MD 03/13/18 0304: General Information and HPI MD Statement: I have seen and personally examined SARABJIT SOTELO and documented this H&P. The patient is a 63 year old F who presented with a patient stated chief complaint of [shortness of breath]. Source of Information: patient Allergies/Medications Allergies: Coded Allergies: quetiapine (PER PT CANT REMEMBER 01/26/18) fluphenazine (STARES AT CEILING, WEIRD GYRATIONS PER PT 01/26/18) lithium (GAINS A LOT OF WEIGHT PER PT 01/26/18) molindone (AKATHESIA 01/26/18) venom-honey bee (BEE VENOM (HONEY BEE)) (BEE VENOM WITH AKATHESIA 01/26/18) Home Med list Benztropine Mesylate 0.5 MG TABLET 1 TAB PO BID MENTAL HEALTH (Reported) Carbamazepine (Tegretol) 200 MG TABLET 2 TAB PO BID MENTAL HEALTH (Reported) Escitalopram Oxalate (Lexapro) 5 MG TABLET 1 TAB PO DAILY MENTAL HEALTH ( Reported) Levothyroxine Sodium 150 MCG TABLET 1 TAB PO DAILY AC THYROID (Reported) Lorazepam (Ativan) 0.5 MG TABLET 1 TAB PO DAILY ANXIETY (Reported) Propranolol HCl 20 MG TABLET 1 TAB PO BID HTN (Reported) Sertraline HCl (Zoloft) 25 MG TABLET 1 TAB PO DAILY MENTAL HEALTH (Reported) Simvastatin (Zocor*) 40 MG TABLET 1 TAB PO QPM CHOLESTEROL (Reported) Ziprasidone Hydrochloride (Geodon) 60 MG CAPSULE 1 CAP PO BID MENTAL HEALTH ( Reported) Past History Medical History Cardiovascular: hypertension Respiratory: COPD Psychiatric: schizoaffective disorder, borderline personality disorder, tobacco use disorder. Endocrine: hypothyroidism Cancer(s): breast cancer Surgical History Surgical History: status post lumpectomy Past Family/Social History Psychosocial History Smoking Status: Current Everyday Smoker ETOH Use: denies use Illicit Drug Use: denies illicit drug use Review of Systems Review of Systems Constitutional: Reports: see HPI. Exam & Diagnostic Data Last 24 Hrs of Vital Signs/I&O Vital Signs Date Time Temp Pulse Resp B/P B/P Pulse O2 O2 Flow FiO2 Mean Ox Delivery Rate 03/13 0257 96 Nasal 2.0L Cannula 03/13 0218 96.9 85 28 154/102 96 Nasal 3.0L Cannula 03/13 0155 Nasal 3.0L Cannula 03/13 0130 91 20 154/80 95 Nasal 3.0L Cannula 03/13 0036 97.8 97 18 138/82 97 Nasal 3.0L Cannula 03/12 2305 74 22 178/88 96 Nasal 3.0L Cannula 03/12 2230 97 BIPAP 03/12 2158 98.2 102 24 187/117 100 BIPAP Intake & Output 03/13 0800 03/13 0000 03/12 1600 Intake Total Output Total Balance Patient 185 lb 177 lb Weight Weight Reported by Patient Reported by Patient Measurement Method Physical Exam General Appearance Alert, Oriented X3, Cooperative, No Acute Distress Skin No Rashes HEENT Atraumatic, PERRLA, EOMI Neck Supple, No JVD Cardiovascular Regular Rate, Normal S1, Normal S2, No Murmurs Lungs Clear to Auscultation, Normal Air Movement Abdomen Normal Bowel Sounds, Soft, No Tenderness Neurological Normal Speech Extremities No Edema, Normal Pulses Core Measures/Misc (05/23) Sepsis (View protocol) If YES complete Sepsis Event Note If YES complete Sepsis Event Note Attending MD Review Statement Attending Statement Attending MD Statement: examined this patient, discuss w/resident/PA/RADIO PROGRAM CHECKER, agreed w/resident/PA/RADIO PROGRAM CHECKER, amended to note Attending Assessment/Plan: This patient is a 63 year old woman w/ a significant past medical history for hypertension, asthma, chronic bronchitis, schizoaffective disorder (borderline personality disorder), chronic tobacco use, hypothyroidism, breast cancer status post lumpectomy who came to the ER with a chief concern of acute onset of dyspnea x 3 days and chronic nonproductive cough. She was in her usual state of health 2 weeks ago, and started developing dyspnea. As soon as she arrived to the ER, she was placed on BiPAP 14/6, respiratory 18, 30% O2, and was speaking full sentences. An EKG done in the ED demonstrated a new LBBB and her trop was 0.05. She is afebrile, her WBC count is normal and CXR did not demonstrate any consolidations. Will treat underlying AECOPD and r/o ACS.
[2018-03-13 02:18] VITALS: BP 154/102
--- NOTE | 2018-03-13 04:26 | Event Note ---
Event Note Event Note: Ms Sotelo continued to be dyspneic when she was moved to the floor, and was informed by the geophysical data technician that she had atrial flutter. At the time of exam, she seemed comfortable; lungs revealed low air entry b/l associated w/ wheezes+ ronchi with no new exam findings as compared to the time of admission. Vitals remained stable. EKG was done that revealed LBBB w/ no q waves in V5-V6 and 1. Unable to assess the ST segments given LBBB. Reached out to Dr. Powers four times, to comment on LBBB and elevated trops, and didnt hear back from him may be because of some technical difficulty in paging system. Was asked to page Dr. Nicko Hameed by Dr. Shin. Await call back. She was already given x 1 dose of ASA 325 ; and was started on iv heparin w/ bolus. Hemo-occult negative. Informed the attending Dr. Shin; and would continue to watch the pt on tele closely. If she has any symptoms would transfer to the ICU. Pt was informed. She was made NPO. She continued to be in mild distress, and stated that she was anxious. Since she get ativan po 0.5mg bid, she was given an iv dose of ativan 0.5mg. CT [employer] checked. She wished to leave [place], but was finally convinced to stay till she was evaluated by the rug cleaner helper.
[2018-03-13 06:42] VITALS: BP 144/80
[2018-03-13 08:10] LABS: ABSOLUTE BASOPHIL COUNT 0 /CUMM (0.0-0.2); ABSOLUTE EOSINOPHIL COUNT 0 /CUMM (0.0-0.7); ABSOLUTE GRANULOCYTE CT 12.4 /CUMM (1.4-6.5); ABSOLUTE LYMPH COUNT 0.5 /CUMM (1.2-3.4); ABSOLUTE MONOCYTE COUNT 0.2 /CUMM (0.10-0.60); BASOPHIL % 0 % (0.0-2.0); EOSINOPHIL % 0 % (0-5); HEMATOCRIT 42.3 % (37-47); MEAN CORPUSCULAR HGB 32.9 PG (27.0-31.0); MEAN CORPUSCULAR HGB CONC 34.2 G/DL (33.0-37.0); MEAN PLATELET VOLUME 8.1 FL (7.4-10.4); PLATELET COUNT 236 /CUMM (130-400); RBC DISTRIBUTION WIDTH 13.9 % (11.5-14.5); WHITE BLOOD CELL COUNT 13.2 /CUMM (4.8-10.8)
--- NOTE | 2018-03-13 11:11 | Event Note ---
Event Note Event Note: 63-year-old female with history of hypertension, hyperlipidemia, current smoker, COPD, shcizoaffective bipolar disorder presented with shortness of breath overnight. * Patient presented with dyspnea on exertion. Denied any chest pain, short of breath or lightheadedness. * Troponin started trending up--0.91, 1.22 with chronic left bundle branch block , no ST-T wave elevations. However patient is asymptomatic so far. * She was evaluated by Dr. Powers fitter/welder this morning. * Recommended to transfer to ICU and closely monitor given her risk factors for myocardial infarction PLAN * Trend cardiac enzymes until they peak * Continuous telemetry monitoring * Continue IV heparin * Continue aspirin 325 daily * Continue Plavix 75 daily after 300 mg loading dose * Begin nitro paste * Begin atorvastatin 40 daily * Lisinopril 10 mg daily * Follow-up echocardiogram Discussed with patient at bedside, informed Dr. Lazo attending physician apartment leasing consultant, discussed with ICU resident.
--- NOTE | 2018-03-13 11:21 | Cons- Cardiology ---
General Information and HPI Consulting Request Date of Consult: 03/13/18 Requested By: Aj Shin MD History of Present Illness: Kavita is a 63 year old female with history of hypertension, dyslipidemia, tobacco abuse and COPD. Sche also carries a history of schizoaffective/bipolar disorder. She was brought to the ER for evaluation of shortness of breath that had become worse over the preceding three days. At the present time, she denies any chest discomfort, shortness of breath or lightheadedness but does have occasional palpitations. She also mentioned nausea and diarrhea. She has a chronic LBBB and her troponin is elevated and rising. Allergies/Medications Allergies: Coded Allergies: quetiapine (PER PT CANT REMEMBER 01/26/18) fluphenazine (STARES AT CEILING, WEIRD GYRATIONS PER PT 01/26/18) lithium (GAINS A LOT OF WEIGHT PER PT 01/26/18) molindone (AKATHESIA 01/26/18) venom-honey bee (BEE VENOM (HONEY BEE)) (BEE VENOM WITH AKATHESIA 01/26/18) Home Med List: Benztropine Mesylate 0.5 MG TABLET 1 TAB PO BID MENTAL HEALTH (Reported) Carbamazepine (Tegretol) 200 MG TABLET 2 TAB PO BID MENTAL HEALTH (Reported) Escitalopram Oxalate (Lexapro) 5 MG TABLET 1 TAB PO DAILY MENTAL HEALTH ( Reported) Levothyroxine Sodium 150 MCG TABLET 1 TAB PO DAILY AC THYROID (Reported) Lorazepam (Ativan) 0.5 MG TABLET 1 TAB PO DAILY ANXIETY (Reported) Propranolol HCl 20 MG TABLET 1 TAB PO BID HTN (Reported) Sertraline HCl (Zoloft) 25 MG TABLET 1 TAB PO DAILY MENTAL HEALTH (Reported) Simvastatin (Zocor*) 40 MG TABLET 1 TAB PO QPM CHOLESTEROL (Reported) Ziprasidone Hydrochloride (Geodon) 60 MG CAPSULE 1 CAP PO BID MENTAL HEALTH ( Reported) Review of Systems Review of Systems: A reliable review of systems is not obtainable. Past History Travel History Traveled to [place] past 21 day No Medical History Blood Transfusion Hx: No Neurological: NONE EENT: NONE Cardiovascular: hypertension Respiratory: COPD Gastrointestinal: NONE Hepatic: NONE Renal: NONE Musculoskeletal: R HIP/FEMUR/PELVIC FX/SX Psychiatric: schizoaffective disorder, borderline personality disorder, tobacco use disorder. Endocrine: hypothyroidism Blood Disorders: NONE Cancer(s): breast cancer [employer]EW[employer]ER/Reproductive: NONE Surgical History Surgical History: status post lumpectomy Psychosocial History Where Do You Live? Home Services at Home: Nursing Smoking Status: Current Everyday Smoker ETOH Use: denies use Illicit Drug Use: denies illicit drug use Exam & Diagnostic Data Vital Signs and I&O Vital Signs Date Time Temp Pulse Resp B/P B/P Pulse O2 O2 Flow FiO2 Mean Ox Delivery Rate 03/13 1046 Nasal 2.0L Cannula 03/13 0941 94 Nasal 3.0L Cannula 03/13 0733 87 144/80 03/13 0642 98.2 87 24 144/80 93 Nasal 3.0L Cannula 03/13 0257 96 Nasal 2.0L Cannula 03/13 0218 96.9 85 28 154/102 96 Nasal 3.0L Cannula 03/13 0155 Nasal 3.0L Cannula 03/13 0130 91 20 154/80 95 Nasal 3.0L Cannula 03/13 0036 97.8 97 18 138/82 97 Nasal 3.0L Cannula 03/12 2305 74 22 178/88 96 Nasal 3.0L Cannula 03/12 2230 97 BIPAP 03/12 2158 98.2 102 24 187/117 100 BIPAP Intake & Output 03/13 1600 03/13 0800 03/13 0000 03/12 1600 03/12 0800 03/12 0000 Intake Total 30 Output Total Balance 30 Intake, Oral 30 Patient 185 lb 177 lb Weight Weight Reported by Patient Reported by Patient Measurement Method Physical Exam: General: WD/obese female in NAD; alert and oriented x 3 HEENT: NC/AT, PERRL, EOMI Neck: no JVD, no carotid bruit Heart: RRR w/o murmur Lungs: decreased air movement bilaterally Abdomen: soft, obese, NT, +ve bowel sounds Extremities: no edema Assessment/Plan Assessment/Plan * This patient has multiple risk factors for coronary artery disease and is ruling in for an PR by cardiac enzymes. She is currently pain free. Transfer to the ICUand follow cardiac enzymes until they peak. * Obtain an echocardiogram. * Begin IV heparin, aspirin 325mg daily and Plavix 75mg daily after a 300mg loading dose. * Begin NTG paste 1 inch Q 6 hours. Begin a statin in the form of Atorvastatin 40mg daily. Begin Lisinopril 10mg daily. * Stop nicotine. Consult Acknowledgment - Thank you for your consult request.
[2018-03-13 11:29] LABS: PTT 94 SEC (25-37)
--- NOTE | 2018-03-13 11:36 | PN- Att Addend ---
Attending Addendum Attending Brief Note Patient seen and examined. Lying in bed not in acute distress. Actually very eager to go home today. Denies chest pain or palpitations. Denies shortness of breath. No events on telemetry monitoring. Cardiac enzymes are trending upwards. Troponin has trended up to 1.22. She remains hemodynamically stable. Vital Signs Date Time Temp Pulse Resp B/P B/P Pulse O2 O2 Flow FiO2 Mean Ox Delivery Rate 03/13 1046 Nasal 2.0L Cannula 03/13 0941 94 Nasal 3.0L Cannula 03/13 0733 87 144/80 08 0642 98.2 87 24 144/80 93 Nasal 3.0L Cannula 03/13 0257 96 Nasal 2.0L Cannula 03/13 0218 96.9 85 28 154/102 96 Nasal 3.0L Cannula 03/13 0155 Nasal 3.0L Cannula 03/13 0130 91 20 154/80 95 Nasal 3.0L Cannula 03/13 0036 97.8 97 18 138/82 97 Nasal 3.0L Cannula 03/12 2305 74 22 178/88 96 Nasal 3.0L Cannula 03/12 2230 97 BIPAP 03/12 2158 98.2 102 24 187/117 100 BIPAP General appearance: Obese and not in any acute distress. HEENT: Anicteric, no pallor, pupils equal and reactive. Neck: Supple with no jugular venous distention. Heart: S1-S2 regular with no audible murmur. Lungs: Adequate and symmetric air entry bilaterally with minimal wheezing bilaterally. Abdomen: Nondistended with normal bowel sounds. Soft, nontender with no palpable masses. Extremities: No pedal edema. No cyanosis. Skin: Intact Laboratory Tests 03/13/18 1030: APTT Pending, D-Dimer High Sensitivty Pending 03/13/18 0835: Troponin I 1.22 *H 03/13/18 0635: Anion Gap 12, Estimated GFR > 60, BUN/Creatinine Ratio 22.2, CBC w Diff NO MAN DIFF REQ, RBC 4.40, MCV 96.0, MCH 32.9 H, MCHC 34.2, RDW 13.9, MPV 8.1, Gran % 94.0 H, Lymphocytes % 4.1 L, Monocytes % 1.9, Eosinophils % 0, Basophils % 0, Absolute Granulocytes 12.4 H, Absolute Lymphocytes 0.5 L, Absolute Monocytes 0.2, Absolute Eosinophils 0, Absolute Basophils 0 03/13/18 0230: Troponin I 0.91 *H 03/13/18 0057: Lactic Acid Cancelled 03/12/18 2240: pH 7.32 L, pCO2 42, pO2 92, HCO3 21, ABG O2 Sat (Measured) 94.0 L, Carboxyhemoglobin 3.0, O2 Concentration % 30, Respiration Rate 18, O2 Delivery Method BIPAP, Vent Mode ST, Expiratory Pressure 6, Inspiratory Pressure 14, Phlebotomy Draw Site RIGHT RADIAL 03/12/18 2200: Anion Gap 10, Estimated GFR 45 L, BUN/Creatinine Ratio 21.7, Glucose 314 H, Lactic Acid 1.4, Calcium 9.5, Total Bilirubin 0.7, AST 35, ALT 53 H, Alkaline Phosphatase 105, Troponin I 0.05, Nmq-S-Jwfapppyele Pept 1880 H, Total Protein 7.9, Albumin 4.2, Globulin 3.7, Albumin/Globulin Ratio 1.1, Free T4 1.14, Total T3 1.54, TSH &T3 &Free T4 Intrp 6.370 H, CBC w Diff NO MAN DIFF REQ, RBC 4.41, MCV 96.8, MCH 32.2 H, MCHC 33.3, RDW 14.1, MPV 7.4, Gran % 81.2 H, Lymphocytes % 11.6 L, Monocytes % 6.0, Eosinophils % 0.8, Basophils % 0.4, Absolute Granulocytes 7.4 H, Absolute Lymphocytes 1.1 L, Absolute Monocytes 0.5, Absolute Eosinophils 0.1, Absolute Basophils 0 Microbiology 03/13 116 LOWER RESP: Respiratory Culture - COLB 03/13 116 LOWER RESP: Gram Stain - COLB 03/12 2311 BLOOD: Blood Culture - RECD 03/12 2227 BLOOD: Blood Culture - RECD Problems: 1. Non-ST elevation myocardial infarction 2. Mild COPD exacerbation 3. Schizophrenia Plan: -Admit to intensive care unit. -Patient has had pretty infusion. Continue aspirin therapy, beta-cee and statin therapy. She is also on an THEODORA inhibitor. -Begin nitroglycerin as recommended by cardiology service. -Trend cardiac enzymes until trending downwards. Obtain echocardiogram. -Follow-up with cardiology service regarding need for nonemergent cardiac catheterization. -Continue bronchodilator therapy. Taper down steroids to 40 mg every 12 hours of Solu-Medrol. Transition to oral azithromycin. Complete 5 days of treatment. -Notify family members of patient's transfer to the ICU
[2018-03-13 16:00] VITALS: BP 130/80
[2018-03-13 19:12] LABS: PTT > 120 SEC (25-37)
[2018-03-13 23:25] VITALS: BP 100/60
[2018-03-14 01:32] LABS: PTT 28 SEC (25-37)
--- NOTE | 2018-03-14 07:27 | PN- Housestaff ---
Davy PENA,Sean 03/14/18725: Subjective Follow-up For: NSTEMI COPD exacerbation schizoaffective disorder Subjective: patient offered no complaints this morning no chest pain, palpitations, nausea, or diaphoresis she has mild tachypnea, without significant respiratory distress or accessory muscle use saturating well on 2-3L of supplemental oxygen Review of Systems Constitutional: Reports: see HPI. Objective Last 24 Hrs of Vital Signs/I&O Vital Signs Date Time Temp Pulse Resp B/P B/P Pulse O2 O2 Flow FiO2 Mean Ox Delivery Rate 03/14 0947 96 Nasal 2.0L Cannula 03/14 08 69 134/70 03/14 0826 72 134/70 03/14 08 95 Nasal 3.0L Cannula 03/14 08 98.4 60 18 138/80 95 Nasal 3.0L Cannula 03/14 0529 96 Nasal 2.0L Cannula 03/14 0400 99 Nasal 3.0L Cannula 03/14 0000 94 Nasal 3.0L Cannula 03/13 2325 98.9 92 17 100/60 94 Nasal 3.0L Cannula 03/13 2151 85 156/87 03/13 2000 94 Nasal 3.0L Cannula 03/13 1642 95 Nasal 3.0L Cannula 03/13 1600 93 Nasal 3.0L Cannula 03/13 1600 98.6 77 20 130/80 95 Nasal 3.0L Cannula 03/13 1440 77 119/77 Intake & Output 03/14 1600 09 0800 03/14 0000 Intake Total 482 335 Output Total 300 500 Balance 182 -165 Intake, IV 362 95 Intake, Oral 120 240 Number 0 0 Bowel Movements Output, Urine 300 500 Patient 76.204 kg Weight Weight Bed scale Measurement Method Physical Exam General Appearance: Alert, Oriented X3, Cooperative, No Acute Distress, on 2L NC Cardiovascular: Regular Rate, Normal S1, Normal S2, No Murmurs Lungs: significantly diminished air movement and diffuse inspiratory and expiratory wheezing Abdomen: Normal Bowel Sounds, Soft, No Tenderness, No Masses Extremities: No Clubbing, No Cyanosis, No Edema, Normal Pulses Current Medications: Current Medications Sig/Keesha Start time Last Medication Dose Route Stop Time Status Admin Acetaminophen 650 MG Q8P PRN 03/13 0115 AC 03/14 PO 0604 Albuterol Sulfate 3 ML EVERY 4 HRS/AWAKE 03/14 1200 AC INH Albuterol Sulfate 3 ML EVERY 4 HRS/AWAKE .. 03/13 1636 DC 03/14 INH 0938 Albuterol Sulfate 3 ML Q4H PRN 03/13 0145 DC 03/13 INH 1347 Aspirin 325 MG DAILY 03/13 1347 AC 03/14 PO 0828 Atorvastatin Calcium 40 MG 1700 0708 1700 AC 03/13 PO 1705 Azithromycin 500 MG 2200 03/13 2200 AC 03/13 Sodium Chloride 250 ML IV 2306 Budesonide/ 2 PUF BID 03/13 09 AC 03/14 Formoterol Fumarate INH 0826 Carbamazepine 400 MG BID 03/13 900 AC 03/14 PO 0826 Clopidogrel Bisulfate 75 MG DAILY 03/14 900 AC 03/14 PO 0826 Clopidogrel Bisulfate 300 MG ONCE ONE 03/13 1400 DC 03/13 PO 03/13 1401 1440 Guaifenesin 10 ML Q6P PRN 03/13 0230 AC PO Heparin Sodium 5,000 UNIT .STK-MED ONE 03/14 0202 DC (Porcine) IV 03/14 0203 Heparin Sodium 4,572 UNIT ONCE ONE 03/14 0200 DC 03/14 (Porcine) IV 03/14 0201 0200 Heparin Sodium 25,000 UNIT Q24H 03/13 0415 AC 03/13 (Porcine) IV 0427 Sodium Chloride 500 ML Levothyroxine Sodium 0.15 MG DAILY AC 03/13 07 AC 03/14 PO 0604 Lisinopril 10 MG DAILY 03/13 1347 AC 03/14 PO 0826 Lorazepam 0.5 MG ONCE ONE 03/13 2315 DC 03/13 PO 03/13 2316 2319 Lorazepam 0.5 MG DAILY 03/13 900 AC 03/14 PO 03/20 0859 0826 Melatonin 5 MG AT BEDTIME 03/13 0315 AC 03/13 PO 2149 Methylprednisolone 40 MG Q12 03/14 2100 AC IV Methylprednisolone 40 MG Q8 03/13 06 DC 03/14 IV 0603 Nicotine 21 MG DAILY 03/13 900 DC TOP Nitroglycerin 1 GM Q6 03/13 1349 AC 03/14 TOP 0603 Propranolol HCl 20 MG BID 03/13 900 AC 03/14 PO 0826 Sertraline HCl 25 MG DAILY 03/13 900 AC 03/14 PO 08 Ziprasidone 60 MG BID 03/13 900 AC 03/14 PO 0827 Last 24 Hrs of Lab/Boris Results Last 24 Hrs of Labs/Mics: Laboratory Tests 03/14/18 0830: Anion Gap 8, Estimated GFR > 60, Glucose 152 H, Calcium 9.7, Phosphorus 2.9, Magnesium 2.2, Total Bilirubin 0.4, AST 36, ALT 53 H, Albumin 3.7, APTT > 120 * H, CBC w Diff NO MAN DIFF REQ, RBC 4.23, MCV 96.4, MCH 32.8 H, MCHC 34.0, RDW 14.3, MPV 8.1, Gran % 91.4 H, Lymphocytes % 3.8 L, Monocytes % 4.8, Eosinophils % 0, Basophils % 0, Absolute Granulocytes 10.5 H, Absolute Lymphocytes 0.4 L, Absolute Monocytes 0.6, Absolute Eosinophils 0, Absolute Basophils 0 03/14/18 0027: APTT 28 03/13/18 1750: APTT > 120 *H 03/13/18 1400: Troponin I 1.12 *H Microbiology 03/13 121 UPPER RESP: Surveillance Culture - RECD 03/13 121 GI: Surveillance Culture - RECD Assessment/Plan Assessment: 63-year-old female with history of hypertension, hyperlipidemia, breast cancer s /p lumpectomy, current smoker, COPD, hypothyroidism, and schizoaffective bipolar disorder presented with acute onset shortness of breath and COPD exacerbation, transferred to intensive care with rising troponins and type II NSTEMI. Elevated troponins secondary to type II NSTEMI with respiratory distress/COPD exacerbation Patient is on propanolol, should switch to cardioselective beta cee given COPD Continue aspirin and plavix, given 300mg plavix loading dose Continue IV heparin Echocardiogram shows normal LVEF 55% with inferior and apical hypokinesis, mild valvular dz Troponins peaking at 1.22, now trending down Continue atorvastatin, ACEi, and nitropaste Given LBBB, smoking, HTN, HLD, high pretest probability of CAD and likely need cardiac cath Follow up cardiology recommendations COPD exacerbation Continue supplemental oxygen Solumedrol decreased from 40mg q8h to 40mg q12h Azithromycin x 5 days TRC evaluation Continue symbicort, robitussin, and nebulized albuterol Chest x-ray showed bronchial wall thickening, no dense consolidation Afebrile, blood cultures negative, sputum not obtained, leukocytosis on steroids ABG 7.32/42/92/25 on bipap 18/6 fio2 0.3 [place] [address] Mayer, report unavailable Schizophrenia: Continue Geodon, tegretol, and zoloft Lexapro on med list (no recent claims), fluoxetine in 11/2017 Benztropine was held on admisison Last inpatient psych admission in 2012 Psychiatry consultation for med recs and capacity evaluation for cardiac procedures Patient was reportedly agitated, verbally abusive, and wanted to leave AMA Received several prn doses of ativan for above Continue patient safety monitor Hypothyroidism: Continue synthroid Heart healthy diet DVT ppx-heparin gtt Full code Problem List: 1. Acute electrocardiogram changes 2. COPD exacerbation 3. NSTEMI (non-ST elevated myocardial infarction) 4. Schizoaffective disorder Pain Ratin Pain Location: n/a Pain Goal: Pain 4 or less Pain Plan: prn Tomorrow's Labs & Rationales: ptt on heparin gtt Berna PENA,Marisol 03/14/18 1128: Attending MD Review Statement Attending Statement Attending MD Statement: examined this patient, discuss w/resident/PA/WASTE HAND, agreed w/resident/PA/WASTE HAND, reviewed EMR data (avail), discussed with nursing, reviewed images Attending Assessment/Plan: 63-year-old female past medical history of schizoaffective disorder, COPD and previous breast cancer. She is here with what appears to be a COPD exacerbation with shortness of breath, bronchospasm on physical exam, mild leukocytosis and bronchial wall thickening on chest x-ray. We have put on IV steroids for the same. She had some mild troponin elevation from 0.05-1.12 and is on maximal medical therapy including IV heparin for the same. Given her pulmonary status, would have a low threshold to get a formal pulmonary consult. She will need cardiac stratification given her rising enzymes and may need a cardiac cath, will defer to cardiology. Her echo shows an EF of 55% with inferior and apical hypokinesis and will need to talk to cardiology whether we need to change any medication for the same. She is agitated with an underlying diagnosis of schizoaffective disorder on chronic psychiatric meds and will call a formal psych consult for the same.
[2018-03-14 08:00] VITALS: BP 138/80
--- NOTE | 2018-03-14 08:09 | ECHOCARDIOGRAM REPORT ---
SARABJIT LIN Age: 63 : 1955 Gender: F Exam Date: 03/13/2018 08:57 Exam Location: [address] Ht (in): 63 Wt (lb): 185 BSA: 1.96 BP: 144 / 80 Ordering Physician: Oksana Reyna MD Referring Physician: Andres Powers MD, PhD Technologist: Sydney Saha [facility] Room Number: [id number] Indications: CHEST PAIN Rhythm: Sinus Technical Quality: fair FINDINGS Left Ventricle Normal left ventricular size, wall thickness and systolic function with inferior and apical hypokinesis. Diastolic filling pattern is consistent with impaired LV relaxation. The ejection fraction is visually estimated at 55%. Right Ventricle The right ventricle is normal in size and function. Right Atrium The right atrium is normal in size. Left Atrium The left atrium is normal in size. The interatrial septum is intact. Mitral Valve The mitral valve is normal in structure and function. There is mild mitral regurgitation. Aortic Valve Structurally normal aortic valve without significant sclerosis or stenosis. There is trace aortic regurgitation. Tricuspid Valve The tricuspid valve is normal in structure and function. There is mild tricuspid regurgitation. Pulmonary artery systolic pressure is normal. Pulmonic Valve Structurally normal pulmonic valve. There is mild pulmonic regurgitation. Pericardium Normal pericardium without effusion. No pleural effusion. Great Vessels Normal aortic root dimension. The aortic arch and great vessels are well seen and are normal. CONCLUSIONS 1. Normal EF of 55% with inferior and apical hypokinesis. 2. Mild mitral regurgitation. 3. Mild tricuspid regurgitation. 4. Trace aortic insufficiency. 5. Mil pulmonic insufficiency. Andres Powers M.D. (Electronically Signed) Final Date: 14 March 2018 08:08 MEASUREMENTS (Male / Female) Normal Values 2D ECHO LV Diastolic Diameter PLAX 4.5 cm 4.2 - 5.9 / 3.9 - 5.3 cm LV Systolic Diameter PLAX 2.8 cm 2.1 - 4.0 cm LV Fractional Shortening PLAX 37.8 % 25 - 46 % LV Ejection Fraction 2D Teich 68.0 % IVS Diastolic Thickness 1.3 cm LVPW Diastolic Thickness 1.3 cm LV Relative Wall Thickness 0.6 RV Internal Dim ED PLAX 2.8 cm 1.9 - 3.8 cm LVOT Diameter 2.0 cm Aortic Root Diameter 2.8 cm LA Systolic Diameter LX 4.2 cm 3.0 - 4.0 / 2.7 - 3.8 cm LA Volume 32.0 cm 18 - 58 / 22 - 52 cm Ascending Aorta Diameter 3.4 cm DOPPLER AV Peak Velocity 134.0 cm/s AV Peak Gradient 7.2 mmHg AV Mean Velocity 90.2 cm/s AV Mean Gradient 4.0 mmHg AV Velocity Time Integral 24.6 cm LVOT Peak Velocity 134.0 cm/s LVOT Peak Gradient 7.2 mmHg LVOT Mean Velocity 81.6 cm/s LVOT Mean Gradient 3.0 mmHg LVOT Velocity Time Integral 24.4 cm LVOT Stroke Volume 76.7 cm AV Area Cont Eq vti 3.1 cm AV Area Cont Eq pk 3.1 cm MV Peak Velocity 116.0 cm/s MV Peak Gradient 5.4 mmHg MV Mean Velocity 66.0 cm/s MV Mean Gradient 2.0 mmHg Mitral E Point Velocity 65.6 cm/s Mitral A Point Velocity 81.8 cm/s Mitral E to A Ratio 0.8 MV PHT Velocity 93.7 cm/s MV Deceleration [place] 426.0 cm/s MV Pressure Half Time 66.0 ms MV Area PHT 3.3 cm MV Deceleration Time 240.0 ms TR Peak Velocity 170.0 cm/s TR Peak Gradient 11.6 mmHg Right Atrial Pressure 5.0 mmHg Pulmonary Artery Systolic Pressu 16.6 mmHg Right Ventricular Systolic Press 16.6 mmHg PV Peak Velocity 125.0 cm/s PV Peak Gradient 6.3 mmHg PV Mean Velocity 81.2 cm/s PV Mean Gradient 3.0 mmHg PV Velocity Time Integral 17.5 cm LV E' Lateral Velocity 7.0 cm/s Mitral E to LV E' Lateral Ratio 9.3 LV E' Septal Velocity 5.2 cm/s Mitral E to LV E' Septal Ratio 12.7
[2018-03-14 09:29] LABS: PTT > 120 SEC (25-37)
[2018-03-14 10:02] LABS: ABSOLUTE BASOPHIL COUNT 0 /CUMM (0.0-0.2); ABSOLUTE EOSINOPHIL COUNT 0 /CUMM (0.0-0.7); ABSOLUTE GRANULOCYTE CT 10.5 /CUMM (1.4-6.5); ABSOLUTE LYMPH COUNT 0.4 /CUMM (1.2-3.4); ABSOLUTE MONOCYTE COUNT 0.6 /CUMM (0.10-0.60); BASOPHIL % 0 % (0.0-2.0); EOSINOPHIL % 0 % (0-5); HEMATOCRIT 40.8 % (37-47); MEAN CORPUSCULAR HGB 32.8 PG (27.0-31.0); MEAN CORPUSCULAR VOLUME 96.4 FL (81.0-99.0); MEAN PLATELET VOLUME 8.1 FL (7.4-10.4); PLATELET COUNT 238 /CUMM (130-400); RBC DISTRIBUTION WIDTH 14.3 % (11.5-14.5); RED BLOOD CELL CT 4.23 /CUMM (4.20-5.40); WHITE BLOOD CELL COUNT 11.5 /CUMM (4.8-10.8)
[2018-03-14 11:28] LABS: GRANULOCYTE % 91.4 % (42.2-75.2)
--- NOTE | 2018-03-14 12:22 | Cons- Psychiatry ---
Psychiatric Consult Date of Consult: 03/14/18 Reason for Consult: Med reccs and ?medical decision making capacity in pt with schizoaffective d/o agitated and needing cardiac interventions in ICU. History of Present Illness: Per ICU H&P: "Bonnie Sotelo is a 63 YO female with a PMHx. of shizoaffective and bipolar disoder, anxiety, COPD, hypertension, hyperlipidemia, breast cancer, and hypothyroidism who presents to the ED with a chief complaint of "dyspnea" that has gotten worse over the past three days. Patient states she had trouble breathing before coming to the ED, which she states has since improved with the breathing treatments. Patient admits to also having diarrhea for the past two days and nausea but denies chest pain, palpitations, and lightheadedness. Patient also notes that she has been gaining weight recently. Patient says she has smoked tobacco cigarettes 2 packs per day for the past 48 years since she was 15 years old. Patient also admits to drinking alcohol occasionally. 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 Patient is unable to identify her PCP. Patient says she follows up with her psychiatrist." Additionally on exam, patient reports that she was upset after having argument with boyfriend with worsening shortness of breath, anxiety, agitation. At this time, patient is amenable to interview, pleasant, cooperative and in agreement with treatment plan. Patient states she's been adherent with her medications, administered daily by [facility]NA with weekend pre-pours. Patient sees Dr. Haddad at [facility] last visit on 02/21/2018. Patient states she's been sleeping poorly with frequent awakenings. Patient reports low energy however denies anhedonia, increased guilt, poor concentration or change in appetite other than consistent increase in appetite due to medications. Patient denies trauma history or physical or sexual abuse currently. Patient denies signs and symptoms of bharat. Patient denies current SI however reports one or 2 weeks ago she had passive SI but is able to "push those thoughts away." Patient denies any past suicide attempts patient denies any HI/VH/SIB. Patient does report auditory hallucinations of "bad things" making statements like "you can't take it anymore." Patient reports that she understands these are her own thoughts and feels she can push them out of her mind. Patient denies any current concerns other than her medical situation and that she wishes "I had more money so that I could get along better." Patient reports 1-2 beers per week denies history of alcohol abuse. Denies any misuse of benzos; only takes her Ativan 0.5 mg daily. Denies any recent use of marijuana or ever using cocaine and opiates and hallucinogens. At this time, patient feels safe and does not feel the need for the safety monitor, however does like to talk with her. Patient was able to discuss risks and benefits of medical procedures in a rational way; patient feels she needs continued medical care and would be unable to get that at home. Per safety monitor and nurse, patient has been in behavioral control today adherent with medications and staff instructions. Allergies: Coded Allergies: quetiapine (PER PT CANT REMEMBER 01/26/18) fluphenazine (STARES AT CEILING, WEIRD GYRATIONS PER PT 01/26/18) lithium (GAINS A LOT OF WEIGHT PER PT 01/26/18) molindone (AKATHESIA 01/26/18) venom-honey bee (BEE VENOM (HONEY BEE)) (BEE VENOM WITH AKATHESIA 01/26/18) Current Medications: Current Medications Sig/Keesha Start time Last Medication Dose Route Stop Time Status Admin Acetaminophen 650 MG Q8P PRN 03/13 0115 AC 03/14 PO 0604 Albuterol Sulfate 3 ML EVERY 4 HRS/AWAKE 03/14 1200 AC 03/14 INH 1341 Albuterol Sulfate 3 ML EVERY 4 HRS/AWAKE .. 03/13 1636 DC 03/14 INH 0938 Albuterol Sulfate 3 ML Q4H PRN 03/13 0145 DC 03/13 INH 1347 Aspirin 325 MG DAILY 03/13 1347 AC 03/14 PO 0828 Atorvastatin Calcium 40 MG 1700 03/13 1700 AC 03/13 PO 1705 Azithromycin 500 MG 2200 03/13 2200 AC 03/13 Sodium Chloride 250 ML IV 2306 Benztropine Mesylate 0.5 MG BID 03/14 1320 AC PO Budesonide/ 2 PUF BID 03/13 09 AC 03/14 Formoterol Fumarate INH 0826 Carbamazepine 400 MG BID 03/13 09 AC 03/14 PO 0826 Clopidogrel Bisulfate 75 MG DAILY 03/14 09 AC 03/14 PO 0826 Clopidogrel Bisulfate 300 MG ONCE ONE 03/13 1400 DC 03/13 PO 03/13 1401 1440 Guaifenesin 10 ML Q6P PRN 03/13 0230 AC PO Heparin Sodium 5,000 UNIT .STK-MED ONE 03/14 0202 DC (Porcine) IV 03/14 0203 Heparin Sodium 4,572 UNIT ONCE ONE 03/14 0200 DC 03/14 (Porcine) IV 03/14 0201 0200 Heparin Sodium 25,000 UNIT Q24H / 0415 AC 03/14 (Porcine) IV 1238 Sodium Chloride 500 ML Levothyroxine Sodium 0.15 MG DAILY AC 03/13 0700 AC 03/14 PO 0604 Lisinopril 10 MG DAILY 03/13 1347 AC 03/14 PO 0826 Lorazepam 0.5 MG TIDPRN PRN 03/14 1345 AC PO 03/21 1344 Lorazepam 0.5 MG ONCE ONE 03/13 2315 DC 03/13 PO 03/13 2316 2319 Lorazepam 0.5 MG DAILY 03/13 09 AC 03/14 PO 03/20 0859 0826 Melatonin 5 MG AT BEDTIME 03/13 0315 AC 03/13 PO 2149 Methylprednisolone 40 MG Q12 03/14 2100 AC IV Methylprednisolone 40 MG Q8 03/13 06 DC 03/14 IV 0603 Nitroglycerin 1 GM Q6 03/13 1349 AC 03/14 TOP 1238 Propranolol HCl 20 MG BID 03/13 900 AC 03/14 PO 0826 Sertraline HCl 25 MG DAILY 03/13 0900 AC 03/14 PO 0826 Ziprasidone 60 MG BID 03/13 09 AC 03/14 PO 0827 Past History Past Medical History Neurological: NONE EENT: NONE Cardiovascular: hypertension Respiratory: COPD Gastrointestinal: NONE Hepatic: NONE Renal: NONE Musculoskeletal: R HIP/FEMUR/PELVIC FX/SX Psychiatric: schizoaffective disorder, borderline personality disorder, tobacco use disorder. 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 Practicing Hindu, finds prayer helpful. Accepting of treatment plan. Supportive director case. Physical Limitations (Interventions): Right trochanter partial-fracture 10/29/2015; fracture was pinned on 10/31/2015. Psychiatric Treatment History Psych Treatment Psychiatric Treatment Yes Inpatient Treatment Yes ([facility] 2013 for psychosis) Outpatient Treatment Yes ([facility] Dr Haddad psychiatri) Location of Treatment [place] Reason for Treatment Schizoaffective d/o Dates of Treatment current Response to Treatment fairly stabilized until cardiac/COPD exacerbation Diagnosis: Schizoaffective disorder bipolar type Chart h/o benzodiazepine dependence, schizotypal personality disorder with borderline, narcissistic, histrionic and paranoid traits Risk Factors: chronic/serious med cond., high anxiety/distress, SA/MH hospitalized, poor impulse control, lives alone, psychosis ([place]) Substance Use/Abuse History Drug Use/Abuse Substances Used/Abused Yes (Alcohol, remote h/o benzo, MJ) Substance Used/Abused Nicotine First Use doesnt remember Last Used EtOH, 2 wks ago; Benzo, only rx use; MJ in 20s How much used/taken EtOH 1-2 beers/wk, no excessive use Route of use oral Substance Abuse Treatment Substance Abuse Treatment Past Substance Abuse [place] No Comments: No seizures, no detox/rehabs, no DTs, no blackouts. Patient reports having a cousin with schizophrenia who jumped off a bridge in an attempt to commit suicide. Reports having a cousin with alcohol use disorder. Patient lives alone in a rented house in [place] but has a boyfriend with whom she has a conflictual relationship. Patient is on SSDI. Patient has a sister in [place], a sister in [place], father in [place] and a brother who is retired in [facility]. Patient denies any legal issues, no history, no access to guns. Assessment/Plan Mental Status Orientation: Person, Place, Situation Affect: Appropriate (euthymic) Speech: Clanging (moderate rate, volume, fluent) Neuro-vegetative: Appetite Increased, Energy Decreased, Sleep Disturbance, frequent wakings, LIU Mental Status Exam: GENERAL: Alert and oriented x3, good eye contact, poorly groomed, in ICU bed wearing bra and jeans, mild respiratory distress, no apparent anxiety SPEECH: Moderate rate and volume, normal prosody, fluent MOTOR: No tics, tremors, stereotathy, or abnormal movements MOOD: "fine" AFFECT: Calm, cooperative , friendly, Mood congruent, good range, non-labile, reasonably well related THOUGHT PROCESS: Generally Logical, linear and goal-directed, mildly circumstantial at times THOUGHT CONTENT: No SI/HI/VH/SIB, +AH ("you cant take it anymore"), understands that AH are her own thoughts that she can push out of her head; has insight to report that she feels mildly paranoid that the nurses are talking about her, but able to consider other causes of their laughter, no apparent grandiosity, delusions, obsessions, ruminations; but upset about boyfriend's behavior COGNITION: No apparent deficit in attention, memory or concentration JUDGMENT: Fair (able to maintain safety today, in behavioral control today) INSIGHT: Fair (able to discuss her own hallucinations and paranoia, understanding need for medications and medical treatment) Lab Results: Laboratory Tests 03/14/18 0830: Anion Gap 8, Estimated GFR > 60, Glucose 152 H, Calcium 9.7, Phosphorus 2.9, Magnesium 2.2, Total Bilirubin 0.4, AST 36, ALT 53 H, Albumin 3.7, APTT > 120 * H, CBC w Diff NO MAN DIFF REQ, RBC 4.23, MCV 96.4, MCH 32.8 H, MCHC 34.0, RDW 14.3, MPV 8.1, Gran % 91.4 H, Lymphocytes % 3.8 L, Monocytes % 4.8, Eosinophils % 0, Basophils % 0, Absolute Granulocytes 10.5 H, Absolute Lymphocytes 0.4 L, Absolute Monocytes 0.6, Absolute Eosinophils 0, Absolute Basophils 0, Carbamazepine Pending 03/14/18 0027: APTT 28 03/13/18 1750: APTT > 120 *H 03/13/18 1400: Troponin I 1.12 *H 03/13/18 1200: Troponin I Cancelled 03/13/18 1030: APTT 94 H, D-Dimer High Sensitivty 238 03/13/18 0835: Troponin I 1.22 *H 03/13/18 0635: Anion Gap 12, Estimated GFR > 60, BUN/Creatinine Ratio 22.2, CBC w Diff NO MAN DIFF REQ, RBC 4.40, MCV 96.0, MCH 32.9 H, MCHC 34.2, RDW 13.9, MPV 8.1, Gran % 94.0 H, Lymphocytes % 4.1 L, Monocytes % 1.9, Eosinophils % 0, Basophils % 0, Absolute Granulocytes 12.4 H, Absolute Lymphocytes 0.5 L, Absolute Monocytes 0.2, Absolute Eosinophils 0, Absolute Basophils 0 03/13/18 0230: Troponin I 0.91 *H 03/13/18 0057: Lactic Acid Cancelled 03/12/18 2240: pH 7.32 L, pCO2 42, pO2 92, HCO3 21, ABG O2 Sat (Measured) 94.0 L, Carboxyhemoglobin 3.0, O2 Concentration % 30, Respiration Rate 18, O2 Delivery Method BIPAP, Vent Mode ST, Expiratory Pressure 6, Inspiratory Pressure 14, Phlebotomy Draw Site RIGHT RADIAL 03/12/18 2200: Anion Gap 10, Estimated GFR 45 L, BUN/Creatinine Ratio 21.7, Glucose 314 H, Lactic Acid 1.4, Calcium 9.5, Total Bilirubin 0.7, AST 35, ALT 53 H, Alkaline Phosphatase 105, Troponin I 0.05, Auy-Z-Ginpealpmwq Pept 1880 H, Total Protein 7.9, Albumin 4.2, Globulin 3.7, Albumin/Globulin Ratio 1.1, Free T4 1.14, Total T3 1.54, TSH &T3 &Free T4 Intrp 6.370 H, CBC w Diff NO MAN DIFF REQ, RBC 4.41, MCV 96.8, MCH 32.2 H, MCHC 33.3, RDW 14.1, MPV 7.4, Gran % 81.2 H, Lymphocytes % 11.6 L, Monocytes % 6.0, Eosinophils % 0.8, Basophils % 0.4, Absolute Granulocytes 7.4 H, Absolute Lymphocytes 1.1 L, Absolute Monocytes 0.5, Absolute Eosinophils 0.1, Absolute Basophils 0 Microbiology 03/13 121 UPPER RESP: Surveillance Culture - COMP 03/13 1210 GI: Surveillance Culture - COMP Diffential Diagnosis: Exacerbation of schizoaffective disorder, characterological traits, Altered mental status related to hypoxia or other metabolic abnormality, other organic causes due to medical decompensation, steroid psychosis or mood alterations (on methylprednisone taper) Impression: 63 -year-old SWF with chronic schizoaffective disorder, bipolar type with chart history of benzodiazepine use disorder, borderline personality traits, COPD, hypertension, hyperlipidemia, rest cancer status post lumpectomy and hypothyroidism presenting to the ED for acute shortness of breath and found to have COPD exacerbation with increased troponins and likely type II NSTEMI potentially warranting cardiac catheterization, however presenting agitated requiring sedation, one-to-one safety monitor, currently on methylprednisolone taper. Consult request called by Dr. Bhatti of ICU team with question of psychiatric medication management and capacity for medical decision making in the context of further cardiac interventions. While patient is somewhat limited cognitively, she does appear to have reasonable insight, is able to discuss risks and benefits of these procedures, is currently not agitated and in agreement with treatment plan, and is able to rationally manipulate information. At this time, patient does appear to have medical decision-making capacity and does not have conservatorship placed. Patient states that she understands that she needs continued medical care for her current decompensation and understands that she would not receive the care at home. Patient was insisting to leave AMA yesterday and was more agitated, however this was in the context of worsening hypoxia which is currently improving with 3 L of oxygen and methylprednisolone taper. Capacity is a time limited determination and may be revisited if patient's mental status changes. As far as psychiatric medications, med list was reviewed with [facility] and [facility] ([facility], med list will be given to medical team). -would restart benztropine 0.5 mg twice a day for EPS prevention as long as patient is on Geodon -Would continue sertraline 25 mg (patient takes this nightly) -Continue Geodon 60 mg twice a day for psychosis -Would continue carbamazepine 400 mg twice a day, please check level and adjust if needed -Would discontinue Lexapro at this time, does not appear to be taking currently -Would use low-dose of Ativan 0.5 mg every 4 hours for agitation, hold for sedation -pt takes diclofenac 50mg BID for pain, please restart when medically tolerated Additionally, -TSH was likely elevated as an acute phase reactant however would recheck levels in approximately 6 weeks and adjust levothyroxine as indicated -Patient feels agitated without nicotine patch however this has been discontinued by cardiology, would restart if and when safe to do so -Would monitor closely for alterations in mood or psychosis possibly due to steroid -pt may become more agitated when hypoxic -May discontinue safety monitor his longest patient continues to maintain behavioral control, at this time patient is in agreement with treatment plan and does not wish to leave AMA. -Please contact [facility] at [phone] to speak with block and case maker Dayton Plummer (will be in March 15) -Patient has appointment scheduled with Dr. Haddad at [facility] on 03/28/2018 at 9 AM. -Please contact [facility] ([facility], [phone]) to coordinate restart of daily VNA services on discharge -please continue to reorient pt, with frequent reminders and attempt to maintain appropriate day-night circadian rhythm cycle Please contact Psychiatry Consult/Liaison with questions. Leyla Vital MD PhD pgr [phone]
--- NOTE | 2018-03-14 14:16 | Cons- CRCU ---
See Addendum General Information and HPI Consulting Request Date of Consult: 03/14/18 Requested By: Dr. Marisol Coronel Reason for Consult: COPD Source of Information: patient, old records Exam Limitations: no limitations History of Present Illness: 63 year old female with a PMHx. of shizoaffective and bipolar disoder, anxiety, COPD, hypertension, hyperlipidemia, breast cancer, and hypothyroidism presented with several days of acutely progressive and worsening dyspnea. She is a current two pack per day smoker and has a chronic nonproductive cough She denied having any recent fevers, chills, sick contacts, or recent antibiotics. Patient states she had trouble breathing before coming to the ED, which she states has since improved with the breathing treatments. She also reported some diarrhea and nausea for the past two days. She denied any chest pain, palpitations, diaphoresis, or lightheadedness. Her dyspnea is worse with exertional and she does not have any orthopnea. She has had some recent weight gain. She hasn't had any recent changes in medication and follows with Dayton Plummer at [facility] for psychiatric care. On arrival to the ED, she was mildly tachycardic, an ABG was performed and she was placed on BIPAP. Her chest x-ray showed bronchial wall thickening consistent with small airway inflammation but was negative for any consolidations suggestive of pneumona. She was afebrile without leukocytosis and negative blood cultures. She is currently breathing comfortably on 2-3L of supplemental oxygen, with significant wheezing and diminished breath sounds on auscultation. She is being treated for COPD exacerbation with intravenous steroids and azithromycin. She ruled in for myocardial infarction on serial troponins, peaking at 1.22, and her EKG revealed a left bundle branch block. She is currently on aspirin, plavix, statin, beta cee, nitrates, ACEi, and has been started on intravenous heparin. She was admitted to critical care with rising troponins and myocardial infarction in the setting of COPD exacerbation. Currently being evaluated by cardiology for possible cardiac catheterization. Allergies/Medications Allergies: Coded Allergies: quetiapine (PER PT CANT REMEMBER 01/26/18) fluphenazine (STARES AT CEILING, WEIRD GYRATIONS PER PT 01/26/18) lithium (GAINS A LOT OF WEIGHT PER PT 01/26/18) molindone (AKATHESIA 01/26/18) venom-honey bee (BEE VENOM (HONEY BEE)) (BEE VENOM WITH AKATHESIA 01/26/18) Home Med List: Benztropine Mesylate 0.5 MG TABLET 1 TAB PO BID MENTAL HEALTH (Reported) Carbamazepine (Tegretol) 200 MG TABLET 2 TAB PO BID MENTAL HEALTH (Reported) Escitalopram Oxalate (Lexapro) 5 MG TABLET 1 TAB PO DAILY MENTAL HEALTH ( Reported) Levothyroxine Sodium 150 MCG TABLET 1 TAB PO DAILY AC THYROID (Reported) Lorazepam (Ativan) 0.5 MG TABLET 1 TAB PO DAILY ANXIETY (Reported) Propranolol HCl 20 MG TABLET 1 TAB PO BID HTN (Reported) Sertraline HCl (Zoloft) 25 MG TABLET 1 TAB PO DAILY MENTAL HEALTH (Reported) Simvastatin (Zocor*) 40 MG TABLET 1 TAB PO QPM CHOLESTEROL (Reported) Ziprasidone Hydrochloride (Geodon) 60 MG CAPSULE 1 CAP PO BID MENTAL HEALTH ( Reported) Current Medications: Current Medications Sig/Keesha Start time Last Medication Dose Route Stop Time Status Admin Acetaminophen 650 MG .STK-MED ONE 03/14 0600 DC PO 03/14 0601 Acetaminophen 650 MG Q8P PRN 03/13 0115 AC 03/14 PO 0604 Albuterol Sulfate 3 ML EVERY 4 HRS/AWAKE 03/14 1200 AC 03/14 INH 1341 Albuterol Sulfate 3 ML EVERY 4 HRS/AWAKE .. 03/13 1636 DC 03/14 INH 0938 Albuterol Sulfate 3 ML Q4H PRN 03/13 0145 DC 03/13 INH 1347 Aspirin 325 MG DAILY 03/13 1347 AC 03/14 PO 0828 Atorvastatin Calcium 40 MG 1700 03/13 1700 AC 03/13 PO 1705 Azithromycin 500 MG 2200 03/13 2200 AC 03/13 Sodium Chloride 250 ML IV 2306 Benztropine Mesylate 0.5 MG BID 03/14 1320 AC PO Budesonide/ 2 PUF BID 03/13 0900 AC 03/14 Formoterol Fumarate INH 0826 Carbamazepine 400 MG BID 03/13 0900 AC 03/14 PO 0826 Carvedilol 12.5 MG BID 03/14 2100 UNVr PO Clopidogrel Bisulfate 75 MG DAILY 03/14 0900 AC 03/14 PO 0826 Guaifenesin 10 ML Q6P PRN 03/13 0230 AC PO Heparin Sodium 5,000 UNIT .STK-MED ONE 03/14 0202 DC (Porcine) IV 03/14 0203 Heparin Sodium 4,572 UNIT ONCE ONE 03/14 0200 DC 03/14 (Porcine) IV 03/14 0201 0200 Heparin Sodium 25,000 UNIT Q24H 03/13 0415 AC 03/14 (Porcine) IV 1238 Sodium Chloride 500 ML Levothyroxine Sodium 0.15 MG DAILY AC 03/13 07 AC 03/14 PO 0604 Lisinopril 10 MG DAILY 03/13 1347 AC 03/14 PO 0826 Lorazepam 0.5 MG TIDPRN PRN 03/14 1345 AC 03/14 PO 03/21 1344 1408 Lorazepam 0.5 MG ONCE ONE 03/13 2315 DC 03/13 PO 03/13 2316 2319 Lorazepam 0.5 MG DAILY 03/13 900 AC 03/14 PO 03/20 0859 0826 Melatonin 5 MG AT BEDTIME 03/13 0315 AC 03/13 PO 2149 Methylprednisolone 40 MG Q12 03/14 2100 AC IV Methylprednisolone 40 MG Q8 03/13 06 DC 03/14 IV 0603 Nitroglycerin 1 GM Q6 03/13 1349 AC 03/14 TOP 1238 Propranolol HCl 20 MG BID 03/13 900 DC 03/14 PO 0826 Sertraline HCl 25 MG DAILY 03/13 09 AC 03/14 PO 0826 Ziprasidone 60 MG BID 03/13 09 AC 03/14 PO 0827 Review of Systems Review of Systems Constitutional: Denies: chills, diaphoresis, fever. EENTM: Reports: no symptoms. Cardiovascular: Denies: chest pain, palpitations. Respiratory: Reports: cough, short of breath, sputum production. Denies: orthopnea. GI: Reports: no symptoms, diarrhea, nausea. Denies: abdominal pain, bloody stool, vomiting. Genitourinary: Denies: dysuria, frequency. Musculoskeletal: Reports: no symptoms. Skin: Reports: no symptoms. Neurological/Psychological: Reports: anxiety, emotional problems. Hematologic/Endocrine: Reports: no symptoms. Immunologic/Allergic: Reports: no symptoms. All Other Systems: Reviewed and Negative Past History Travel History Traveled to [place] past 21 day No Medical History Blood Transfusion Hx: No Neurological: NONE EENT: NONE Cardiovascular: hypertension Respiratory: COPD Gastrointestinal: NONE Hepatic: NONE Renal: NONE Musculoskeletal: R HIP/FEMUR/PELVIC FX/SX Psychiatric: schizoaffective disorder, borderline personality disorder, tobacco use disorder. Endocrine: hypothyroidism Blood Disorders: NONE Cancer(s): breast cancer CONTINUOUS IMPROVEMENT BLACK BELT/Reproductive: NONE Surgical History Surgical History: status post lumpectomy Family History Relations & Conditions If Any: FATHER FH: CAD (coronary artery disease) Psychosocial History Where Do You Live? Home Services at Home: Nursing Smoking Status: Current Everyday Smoker ETOH Use: denies use Illicit Drug Use: denies illicit drug use Functional Ability ADLs Independent: dressing, eating, toileting, bathing. Ambulation: independent IADLs Independent: shopping, housework, finances, food prep, telephone, transportation , medication admin. Exam & Diagnostic Data Last 24 Hrs of Vital Signs/I&O Vital Signs Date Time Temp Pulse Resp B/P B/P Pulse O2 O2 Flow FiO2 Mean Ox Delivery Rate 03/14 1200 98 Nasal 3.0L Cannula 03/14 0947 96 Nasal 2.0L Cannula 03/14 08 69 134/70 03/14 0826 72 134/70 03/14 0800 95 Nasal 3.0L Cannula 03/14 0800 98.4 60 18 138/80 95 Nasal 3.0L Cannula 03/14 0529 96 Nasal 2.0L Cannula 03/14 0400 99 Nasal 3.0L Cannula 03/14 0000 94 Nasal 3.0L Cannula 03/13 2325 98.9 92 17 100/60 94 Nasal 3.0L Cannula 03/13 2151 85 156/87 / 2000 94 Nasal 3.0L Cannula 03/13 1642 95 Nasal 3.0L Cannula 03/13 1600 93 Nasal 3.0L Cannula 03/13 1600 98.6 77 20 130/80 95 Nasal 3.0L Cannula 03/13 1440 77 119/77 Intake & Output 03/14 1600 03/14 0800 03/14 0000 Intake Total 482 335 Output Total 300 500 Balance 182 -165 Intake, IV 362 95 Intake, Oral 120 240 Number 0 0 Bowel Movements Output, Urine 300 500 Patient 76.204 kg Weight Weight Bed scale Measurement Method Physical Exam General Appearance: well developed/nourished, no apparent distress, alert, awake , comfortable Respiratory: decreased breath sounds, wheezing Cardiovascular: regular rate/rhythm, normal peripheral pulses Gastrointestinal: normal bowel sounds, soft, non-tender Extremities: normal inspection, normal capillary refill, normal range of motion, no edema Last 48 Hrs of Labs/Boris: Laboratory Tests 03/14/18 0830: Anion Gap 8, Estimated GFR > 60, Glucose 152 H, Calcium 9.7, Phosphorus 2.9, Magnesium 2.2, Total Bilirubin 0.4, AST 36, ALT 53 H, Albumin 3.7, APTT > 120 * H, CBC w Diff NO MAN DIFF REQ, RBC 4.23, MCV 96.4, MCH 32.8 H, MCHC 34.0, RDW 14.3, MPV 8.1, Gran % 91.4 H, Lymphocytes % 3.8 L, Monocytes % 4.8, Eosinophils % 0, Basophils % 0, Absolute Granulocytes 10.5 H, Absolute Lymphocytes 0.4 L, Absolute Monocytes 0.6, Absolute Eosinophils 0, Absolute Basophils 0, Carbamazepine Pending 03/14/18 0027: APTT 28 03/13/18 1750: APTT > 120 *H 03/13/18 1400: Troponin I 1.12 *H 03/13/18 1200: Troponin I Cancelled 03/13/18 1030: APTT 94 H, D-Dimer High Sensitivty 238 03/13/18 0835: Troponin I 1.22 *H 03/13/18 0635: Anion Gap 12, Estimated GFR > 60, BUN/Creatinine Ratio 22.2, CBC w Diff NO MAN DIFF REQ, RBC 4.40, MCV 96.0, MCH 32.9 H, MCHC 34.2, RDW 13.9, MPV 8.1, Gran % 94.0 H, Lymphocytes % 4.1 L, Monocytes % 1.9, Eosinophils % 0, Basophils % 0, Absolute Granulocytes 12.4 H, Absolute Lymphocytes 0.5 L, Absolute Monocytes 0.2, Absolute Eosinophils 0, Absolute Basophils 0 03/13/18 0230: Troponin I 0.91 *H 03/13/18 0057: Lactic Acid Cancelled 03/12/18 2240: pH 7.32 L, pCO2 42, pO2 92, HCO3 21, ABG O2 Sat (Measured) 94.0 L, Carboxyhemoglobin 3.0, O2 Concentration % 30, Respiration Rate 18, O2 Delivery Method BIPAP, Vent Mode ST, Expiratory Pressure 6, Inspiratory Pressure 14, Phlebotomy Draw Site RIGHT RADIAL 03/12/18 2200: Anion Gap 10, Estimated GFR 45 L, BUN/Creatinine Ratio 21.7, Glucose 314 H, Lactic Acid 1.4, Calcium 9.5, Total Bilirubin 0.7, AST 35, ALT 53 H, Alkaline Phosphatase 105, Troponin I 0.05, Knz-D-Cgzswlovlzq Pept 1880 H, Total Protein 7.9, Albumin 4.2, Globulin 3.7, Albumin/Globulin Ratio 1.1, Free T4 1.14, Total T3 1.54, TSH &T3 &Free T4 Intrp 6.370 H, CBC w Diff NO MAN DIFF REQ, RBC 4.41, MCV 96.8, MCH 32.2 H, MCHC 33.3, RDW 14.1, MPV 7.4, Gran % 81.2 H, Lymphocytes % 11.6 L, Monocytes % 6.0, Eosinophils % 0.8, Basophils % 0.4, Absolute Granulocytes 7.4 H, Absolute Lymphocytes 1.1 L, Absolute Monocytes 0.5, Absolute Eosinophils 0.1, Absolute Basophils 0 Microbiology 03/13 1210 UPPER RESP: Surveillance Culture - COMP 03/13 121 GI: Surveillance Culture - COMP Diagnostic Data EKG Results left bundle branch block with possible ST segment elevations in anteroseptal leads CXR Results FINDINGS: Cardiac leads overlie the chest. The lungs are well expanded. There is no focal consolidation, edema, or effusion. Mild bronchial wall thickening present. No pneumothorax. The cardiomediastinal silhouette is within normal limits. No acute osseous abnormality. IMPRESSION: No dense consolidation. Bronchial wall thickening can be seen with a small airways process such as asthma or atypical/viral infection. Assessment/Plan CRCU Impression/Plan: 63-year-old female with history of hypertension, hyperlipidemia, breast cancer s /p lumpectomy, current smoker, COPD, hypothyroidism, and schizoaffective bipolar disorder presented with acute onset shortness of breath and COPD exacerbation, transferred to intensive care with rising troponins and type II NSTEMI. Elevated troponins secondary to type II NSTEMI with respiratory distress/COPD exacerbation Patient is on propanolol, switched to equivalent dose of carvedilol Continue aspirin and plavix, given 300mg plavix loading dose Continue IV heparin Echocardiogram shows normal LVEF 55% with inferior and apical hypokinesis, mild valvular dz Troponins peaking at 1.22, now trending down Continue atorvastatin, ACEi, and nitropaste Given LBBB, smoking, HTN, HLD, high pretest probability of CAD and likely need cardiac cath Follow up cardiology recommendations COPD exacerbation Continue supplemental oxygen, titrate to an SpO2 > 90% Solumedrol decreased from 40mg q8h to 40mg q12h Azithromycin x 5 days TRC evaluation Continue symbicort, robitussin, and nebulized albuterol, add ipatropium Chest x-ray showed bronchial wall thickening, no dense consolidation Afebrile, blood cultures negative, sputum not obtained, leukocytosis on steroids ABG 7.32/42/92/25 on bipap 18/6 fio2 0.3 [place] [address] Mayer, report unavailable Pulmonology consultation placed Counseled on smoking cessation, nicotine replacement therapy stopped per cardio Changed to cardioselective beta cee for reactive airway disease Schizophrenia: Continue Geodon, benztropine, tegretol, and zoloft Stop other SSRIs, check tegretol level Psychiatry consulted, patient has capacity to make her own decisions Can stop 1:1, ativan prn for agitation, anxiety Hypothyroidism: Continue synthroid Heart healthy diet DVT ppx-heparin gtt Full code Consult Acknowledgment - Thank you for your consult request.
[2018-03-14 15:06] LABS: PTT 48 SEC (25-37)
[2018-03-14] MEDS ORDERED: ALBUTEROL1.25 MG/1 INH/SOL (15:20)
[2018-03-14] MEDS ORDERED: COMBIVENT RESPIM4 GM INH (15:22)
[2018-03-14] MEDS ORDERED: DICLOFENAC POTA50 M1 PO (15:25)
[2018-03-14 16:03] VITALS: BP 154/84
--- NOTE | 2018-03-14 16:19 | PN- Cardiology ---
Subjective Subjective: * No chest discomfort or shortness of breath. * sinus rhythm * troponins are trending down Objective Vital Signs and I&Os Vital Signs Date Time Temp Pulse Resp B/P B/P Pulse O2 O2 Flow FiO2 Mean Ox Delivery Rate 03/14 1603 97.1 62 22 154/84 96 Nasal 3.0L Cannula 03/14 1600 96 Nasal 3.0L Cannula 03/14 1200 98 Nasal 3.0L Cannula 03/14 0947 96 Nasal 2.0L Cannula 03/14 0826 69 134/70 03/14 0826 72 134/70 03/14 08 95 Nasal 3.0L Cannula 03/14 08 98.4 60 18 138/80 95 Nasal 3.0L Cannula 03/14 0529 96 Nasal 2.0L Cannula 03/14 0400 99 Nasal 3.0L Cannula 03/14 0000 94 Nasal 3.0L Cannula 03/13 2325 98.9 92 17 100/60 94 Nasal 3.0L Cannula 03/13 2151 85 156/87 03/13 2000 94 Nasal 3.0L Cannula 03/13 1642 95 Nasal 3.0L Cannula Intake & Output 03/14 1600 03/14 0800 / 0000 03/13 1600 03/13 0800 03/13 0000 Intake Total 497 482 335 265 30 Output Total 300 500 600 Balance 497 182 -165 -335 30 Intake, IV 77 362 95 145 Intake, Oral 420 120 240 120 30 Number 0 0 1 Bowel Movements Output, Urine 300 500 600 Patient 168 lb 185 lb 177 lb Weight Weight Bed scale Reported by Patient Reported by Patient Measurement Method Physical Exam: General: WD/obese female in NAD; alert and oriented x 3 HEENT: NC/AT, PERRL, EOMI Neck: no JVD, no carotid bruit Heart: RRR w/o murmur Lungs: decreased air movement bilaterally with wheezing Abdomen: soft, obese, NT, +ve bowel sounds Extremities: no edema Assessment/Plan Assessment/Plan * This patient has multiple risk factors for coronary artery disease and has ruled in for an GA by cardiac enzymes. She is currently pain free. Continue IV heparin, aspirin 325mg daily and Plavix 75mg daily. Continue NTG paste 1 inch Q 6 hours and Coreg 12.5mg BID. Continue Atorvastatin 40mg daily and Lisinopril 10mg daily. * Will review echocardiogram. * This patient carries a history of COPD/asthma and is currently wheezing. Please follow pulmonary recommendations. * If patient is improved from a pulmonary standpoint we will pursue a cardiac catheterization on Wednesday. Continue telemetry? Yes
[2018-03-14 20:23] LABS: PTT 45 SEC (25-37)
[2018-03-14 21:37] VITALS: BP 140/60
[2018-03-14 22:52] VITALS: BP 140/60
[2018-03-15 03:10] LABS: ABSOLUTE BASOPHIL COUNT 0 /CUMM (0.0-0.2); ABSOLUTE EOSINOPHIL COUNT 0 /CUMM (0.0-0.7); ABSOLUTE GRANULOCYTE CT 6.6 /CUMM (1.4-6.5); ABSOLUTE LYMPH COUNT 0.5 /CUMM (1.2-3.4); ABSOLUTE MONOCYTE COUNT 0.3 /CUMM (0.10-0.60); BASOPHIL % 0.1 % (0.0-2.0); EOSINOPHIL % 0 % (0-5); GRANULOCYTE % 88.9 % (42.2-75.2); HEMATOCRIT 36.9 % (37-47); MEAN CORPUSCULAR HGB 32.8 PG (27.0-31.0); MEAN CORPUSCULAR HGB CONC 34.1 G/DL (33.0-37.0); MEAN CORPUSCULAR VOLUME 96.2 FL (81.0-99.0); MEAN PLATELET VOLUME 7.4 FL (7.4-10.4); PLATELET COUNT 217 /CUMM (130-400); RED BLOOD CELL CT 3.84 /CUMM (4.20-5.40); WHITE BLOOD CELL COUNT 7.4 /CUMM (4.8-10.8)
[2018-03-15 03:24] LABS: PTT 102 SEC (25-37)
[2018-03-15 06:36] VITALS: BP 112/72
--- NOTE | 2018-03-15 06:56 | PN- Housestaff ---
Annette Becker 03/15/18 0656: Subjective Follow-up For: COPD Exacerbation Rule Out ACS Tele-Events Since Last Visit: Accelerated Junctional/1 degree AVB, 67 HR, 0.12, 0.22 Subjective: Patient seen and examined at bedside this morning. She denied any chest pain or shortness of breath at the time. Patient took off her nasal canula and stated she is doing fine without it. Patient for cath procedure tomorrow. She denies any new complaints at this time. Patient advised to quit and or cut back on her smoking given her COPD and new CAD. Review of Systems Constitutional: Denies: see HPI. Objective Last 24 Hrs of Vital Signs/I&O Vital Signs Date Time Temp Pulse Resp B/P B/P Pulse O2 O2 Flow FiO2 Mean Ox Delivery Rate 03/15 1227 128/76 03/15 0907 64 112/72 03/15 0907 64 112/72 03/15 0807 95 Nasal 2.0L Cannula 03/15 0636 98.0 64 18 112/72 95 Nasal Cannula 03/15 0000 95 Nasal 3.0L Cannula 03/14 2252 98.2 77 18 140/60 90 03/14 2137 98.2 70 16 140/60 90 03/14 2056 68 124/74 03/14 1723 95 Nasal 2.0L Cannula 03/14 1603 97.1 62 22 154/84 96 Nasal 3.0L Cannula 03/14 1600 96 Nasal 3.0L Cannula Intake & Output 03/15 1600 03/15 0800 03/15 0000 Intake Total 478.4 970 Output Total Balance 478.4 970 Intake, IV 78.4 370 Intake, Oral 400 600 Patient 170 lb Weight Physical Exam General Appearance: Alert, Oriented X3, Cooperative, No Acute Distress HEENT: Atraumatic, PERRLA, EOMI Cardiovascular: Regular Rate, Normal S1, Normal S2 Lungs: Hyperresoonant lung sounds on auscultation Abdomen: Normal Bowel Sounds, Soft, No Tenderness, No Hepatospenomegaly, No Masses Neurological: Normal Gait, Normal Speech, Normal Tone, Sensation Intact, Cranial Nerves 3-12 NL Extremities: No Clubbing, No Cyanosis, No Edema, Normal Pulses Vascular: Normal Pulses Assessment/Plan Assessment: A/P: Patient is a 63 year old female with past medical history of schizophrenia, bipolar disorder, anxiety and COPD not on home O2 smoker of 2 packs a day for past 48 years, HTN, HLD, breast cancer status post lumpectomy who came to the ED for acute onset of dyspnea and chest pain for 3 days. Patients troponins elevated consistently to 1.12 most recent 03/16/18. Patient received IV heparin in the ICU and is now being monitored in the telemetry unit. Patient currently denies chest pain or shortness of breath. Dr. Powers for Cardiology. Cath procedure scheduled for Wednesday03/16/18. Will prepare for discharge tomorrow. Dr. Lamar seen as pulmonology standpoint. Problem List: 1. NSTEMI 2. COPD Exacerbation PLAN: * Dr. Powers on board. Ruled in for IA by cardiac enzymes. Patient curently pain free. * Continue IV heparin, aspirin 325mg daily, Plavix 75mg daily. NTG paste 1 inch Q6 hrs; Coreg 12.5 mg BID; Atorvastatin 40mg daily and Lisiopril 10mg daily * ECHO: * Dr. Lamar on board from pulmonology perspective. Increased IV solumedrol 40mg to q8 hours; continue nebs/TRC-nebulizer treatments every 4 hours around the clock; continue symbicort and robitussin; spiriva 1 inhalation every morning * Patient advised smoking cessation. Nicotine replacement therapy discontinued as per cardiology. -Respiratory status needs to be further optimized today to minmize risk of anesthesia -discused with caridology to continue to attempt to optimize the patient for dc tomorrow Code Status: Full Code DVT PPx: Heparin SC dosed Diet: Heart Healthy Pain: As per pain pathway Problem List: 1. NSTEMI (non-ST elevated myocardial infarction) 2. COPD exacerbation Pain Ratin Pain Location: No pain today Pain Goal: Remain pain free Pain Plan: As per pain pathway Tomorrow's Labs & Rationales: Patient for DC tomorrow DVT/Prophylaxis: pharmacological Ron Melvin 03/15/18 1253: Attending MD Review Statement Attending Statement Attending MD Statement: examined this patient, discuss w/resident/PA/PULVERIZER MILL OPERATOR, agreed w/resident/PA/PULVERIZER MILL OPERATOR, reviewed EMR data (avail), discussed with nursing, discussed with case mgmt Attending Assessment/Plan: NSTEMI- pt planned for cardiac cath tomorrow. will get paperwork ready for transfer in am. nilesh pt the care plan.
--- NOTE | 2018-03-15 07:15 | PN- Pulmonary ---
Subjective HPI/Critical Care Issues: The patient is awake and alert. She remains anxious. She feels her breathing has improved noting she is less short of breath. She continues to have significant wheezing, cough and chest congestion. She has clear sputum production. She is afebrile without chills. She denies any abdominal pain. She notes no chest pain today. Objective Current Medications: Current Medications Sig/Keesha Start time Last Medication Dose Route Stop Time Status Admin Acetaminophen 650 MG Q8P PRN 03/13 0115 AC 03/14 PO 0604 Albuterol Sulfate 3 ML EVERY 4 HRS/AWAKE 03/14 1200 AC 03/14 INH 2031 Albuterol Sulfate 3 ML EVERY 4 HRS/AWAKE .. 03/13 1636 DC 03/14 INH 0938 Aspirin 325 MG DAILY 03/13 1347 AC 03/14 PO 0828 Atorvastatin Calcium 40 MG 1700 03/13 1700 AC 03/14 PO 1625 Azithromycin 500 MG 2200 03/13 2200 AC 03/14 Sodium Chloride 250 ML IV 2315 Benztropine Mesylate 0.5 MG BID 03/14 1320 AC 03/14 PO 205 Budesonide/ 2 PUF BID 03/13 09 AC 03/14 Formoterol Fumarate INH 2056 Carbamazepine 400 MG BID 03/13 09 AC 03/14 PO 2056 Carvedilol 12.5 MG BID 03/14 2100 AC 03/14 PO 205 Clopidogrel Bisulfate 75 MG DAILY 03/14 09 AC 03/14 PO 0826 Guaifenesin 10 ML Q6P PRN 03/13 0230 AC PO Heparin Sodium 2,300 UNIT ONCE ONE 03/14 2115 DC 03/14 (Porcine) IV 03/14 Heparin Sodium 5,000 UNIT .STK-MED ONE 03/14 2047 DC (Porcine) IV 03/14 2048 Heparin Sodium 25,000 UNIT Q24H 03/13 0415 AC 03/14 (Porcine) IV 1238 Sodium Chloride 500 ML Levothyroxine Sodium 0.15 MG DAILY AC 03/13 07 AC 03/15 PO 0704 Lisinopril 10 MG DAILY 03/13 1347 AC 03/14 PO 0826 Lorazepam 0.5 MG TIDPRN PRN 03/14 1345 AC 03/14 PO 03/21 1344 1408 Lorazepam 0.5 MG DAILY 03/13 09 AC 03/14 PO 03/20 08 0826 Melatonin 5 MG AT BEDTIME 03/13 031 AC 03/14 PO 2055 Methylprednisolone 40 MG Q12 03/14 2100 AC 03/14 IV 2055 Methylprednisolone 40 MG Q8 03/13 600 DC 03/14 IV 0603 Nitroglycerin 1 GM Q6 03/13 1349 03/14 TOP 2315 Propranolol HCl 20 MG BID 03/13 900 DC 03/14 PO 825 Sertraline HCl 25 MG DAILY 03/13 900 AC 03/14 PO 825 Tiotropium Seymour 1 PUF DAILY 03/14 1553 AC 03/14 INH 1731 Ziprasidone 60 MG BID 03/13 900 AC 03/14 PO 2055 Vital Signs & I&O Last 24 Hrs of Vitals and I&O: Vital Signs Date Time Temp Pulse Resp B/P B/P Pulse O2 O2 Flow FiO2 Mean Ox Delivery Rate 03/15 636 98.0 64 18 112/72 95 Nasal Cannula 03/14 2252 98.2 77 18 140/60 90 03/14 2137 98.2 70 16 140/60 90 03/146 68 124/74 03/14 1723 95 Nasal 2.0L Cannula 03/14 1603 97.1 62 22 154/84 96 Nasal 3.0L Cannula 03/14 1600 96 Nasal 3.0L Cannula 03/14 1200 98 Nasal 3.0L Cannula 03/14 0947 96 Nasal 2.0L Cannula 03/14 08 69 134/70 03/14 0826 72 134/70 03/14 0800 95 Nasal 3.0L Cannula 03/14 08 98.4 60 18 138/80 95 Nasal 3.0L Cannula Intake & Output 03/15 0800 07 0000 03/14 1600 Intake Total 994 Output Total 500 Balance 494 Intake, IV 154 Intake, Oral 840 Number 0 Bowel Movements Output, Urine 500 Patient 170 lb Weight Physical Exam General Appearance: well developed/nourished, no apparent distress, alert, awake , comfortable Respiratory: decreased breath sounds, wheezing throughout both lung otto Cardiovascular: regular rate/rhythm, normal peripheral pulses Gastrointestinal: normal bowel sounds, soft, non-tender Extremities: normal inspection, normal capillary refill, normal range of motion, no edema Results Last 24 Hrs of Lab Results: Laboratory Tests 03/15/18 0255: Anion Gap 8, Estimated GFR > 60, Glucose 154 H, Calcium 9.3, Phosphorus 3.1, Magnesium 2.1, Total Bilirubin 0.4, AST 43 H, ALT 52, Albumin 3.2 L, APTT 102 *H, CBC w Diff MAN DIFF ORDERED, RBC 3.84 L, MCV 96.2, MCH 32.8 H, MCHC 34.1, RDW 14.0, MPV 7.4, Gran % 88.9 H, Lymphocytes % 6.7 L, Monocytes % 4.3, Eosinophils % 0, Basophils % 0.1, Absolute Granulocytes 6.6 H, Segmented Neutrophils 84 H, Absolute Lymphocytes 0.5 L, Lymphocytes 14 L, Monocytes 2, Absolute Monocytes 0.3, Absolute Eosinophils 0, Absolute Basophils 0, Platelet Estimate ADEQUATE, Polychromasia 1+, Basophilic Stippling SLIGHT, Ovalocytes FEW , Stomatocytes FEW, Fld Total RBCs Counted 100 03/14/18 1950: APTT 45 H 03/14/18 1400: APTT 48 H 03/14/18 0830: Anion Gap 8, Estimated GFR > 60, Glucose 152 H, Calcium 9.7, Phosphorus 2.9, Magnesium 2.2, Total Bilirubin 0.4, AST 36, ALT 53 H, Albumin 3.7, APTT > 120 * H, CBC w Diff NO MAN DIFF REQ, RBC 4.23, MCV 96.4, MCH 32.8 H, MCHC 34.0, RDW 14.3, MPV 8.1, Gran % 91.4 H, Lymphocytes % 3.8 L, Monocytes % 4.8, Eosinophils % 0, Basophils % 0, Absolute Granulocytes 10.5 H, Absolute Lymphocytes 0.4 L, Absolute Monocytes 0.6, Absolute Eosinophils 0, Absolute Basophils 0, Carbamazepine 5.0 Impression/Plan Impression/Plan Impression/Plan: 1. Acute exacerbation of COPD, with ongoing bronchospasm although improving. 2. Non-ST elevation DC in the setting of acute respiratory failure. 3. Schizophrenia. 4. History of hypothyroidism. Recommendations: * Continue oxygen for saturations greater than 90-92%. * IV Solumedrol 40 mg but increase to every 8 hours today. * Complete 5 days of azithromycin therapy. * Continue nebs/TRC -nebulizer treatments need to be given every 4 hours around- the-clock. * Continue Symbicort, and Robitussin. * Spiriva 1 inhalation every morning. * Continue with smoking cessation. Nicotine replacement therapy stopped as per cardiology. * DVT prophylaxis at all times. * The patient will possibly be transferred tomorrow for cardiac catheterization. Her respiratory status needs to further be optimized today to minimize her risk for anesthesia. I have discussed this with cardiology, and will continue to attempt to optimize the patient in anticipation for discharge tomorrow.
[2018-03-15 11:36] LABS: PTT 32 SEC (25-37)
[2018-03-15 12:27] VITALS: BP 128/76
[2018-03-15 15:05] VITALS: BP 124/74
--- NOTE | 2018-03-15 15:39 | Discharge Summary ---
Visit Information Visit Dates Admission Date: 03/12/18 Discharge Date: 03/16/2018 Hospital Course Course Attending Physician: Olegario PENA,Ron Tierney Primary Care Physician: Makenna Gonzalez APRN Hospital Course: Ms Sotelo is a 63 year old woman w/ a PMHx of hypertension, asthma, chronic bronchitis (not on any home oxygen), schizoaffective disorder, border personality disorder, chronic tobacco use, hypothyroidism, breast cancer status post lumpectomy came to the ER with a chief concern of acute onset of dyspnea x 3 days. Continues to have chronic nonproductive cough. No fever, chills. No chest pain, orthopnea. As soon as she arrived to the ER, she was placed on BiPAP 14/6, respiratory 18, 30% O2, and was speaking full sentenses. At the time of admission-temperature 98.2, pulse rate 102-->74, respiration 22, pulse ox 100% BiPAP-->96% 3L. EKG revealed NSR, LAD, LBBB, Unable to assess the ST seg. Chest x ray- No dense consolidation. Bronchial wall thickening can be seen with a small airways process such as asthma or atypical/viral infection. Pertinent lab findings: WBC 9.1, hemoglobin 14.2, platelet count 254. Sodium 130, potassium 5.2, chloride 93 BUN 26, creatinine 1.2(baseline 1.0), glucose 314. Lactic acid 1.4 AST 35, ALT 53, alkaline phosphatase 105 Troponin I-0.05--> ABG-pH 7.32, PCO2 42, PO2 92 (BiPAP 30% oxygen) Last echo : 04 December 2012 1. Minimal aortic sclerosis is present in a tricuspid aortic valve with no valvular stenosis or insufficiency. 2. Minimal thickening of the mitral leaflets is present with minimal anular calcification and minimal mitral insufficiency. 3. There is no significant pericardial fluid present. 4. The left ventricular chamber size is normal. There is mild left ventricular hypertrophy present with assymmetric hypertrophy of the interventricular septum. The ejection fraction is normal with no visible resting wall motion abnormalities. 5. The right heart structures are grossly normal with minimal tricuspid insufficiency present. Problem list: 1. COPD exacerbation 2. r/o Pneumonia 3. new onset LBBB ? 4. h/o Schizoaffective disorder/anxiety/depression 5. h/o hypothyroidism COPD exacerbation/acute bronchitis Patient presented with worsening dyspnea for 3 days. Etiology in this case for airflow obstruction is likely secondary to chronic bronchitis. Frequent exacerbations are associated w/ greater mortality, faster decline in lung function likely due to continued smoking. Etiology for acute exacerbation is likely an infection likely viral infection. She was admitted to telemetry, transferred to ICU for elevated troponin. She was treated for acute COPD exacerbation with IV steroids methylprednisone 40 mg every 8 hours. She was continued on azithromycin 500 mg for 5 days. She was given [id number] nebulizer treatments, she received albuterol and Spiriva treatment. She was continued on Symbicort and Robitussin. Ui Software Developer on board. Lower respiratory cultures were sent. She was extensively counseled about smoking cessation. However patient left AMA , she was sent on prednisone tapering doses 40 mg 3 days, 30 mg 3 days, 20 mg 3 days, 10 mg 3 days, 5 mg 3 days. Azithromycin prescription was provided to complete 5 day course. She was given prescription for Symbicort and Spiriva. Advised to take albuterol inhaler as needed every 3 hours for shortness of breath. She was advised to follow-up with classroom aide in the office. NSTEMI Patient presented with acute onset of dyspnea for 3 days associated with a nonproductive cough. However she was found to have elevated troponin peaked up to 1.29 requiring ICU transfer. She has no EKG changes except for chronic left bundle branch block. Of note she has no chest pain, short of breath, nausea, vomiting, diaphoresis. She remained asymptomatic throughout her stay in the hospital. she was evaluated by smalltalk developer Dr. Powers, transferred to intensive care unit for close monitoring. She was started on IV heparin drip on 03/13/2018. She was continued on aspirin, statin, nitroglycerin sublingual, Plavix, lisinopril. As she has history of COPD now presented with COPD exacerbation-her wheezing has not resolved with decreased air movement. However she is not back to baseline. So cardiac cath was held by Dr. Powers. She was advised to follow-up with Dr. Powers outpatient for cardiac cath procedure. SCHIZOPHRENIA/borderline personality disorder She was evaluated by psychiatrist in the hospital BENZTROPINE 0.5 MG BD Carbamazepine 400 twice daily Zoloft 25 daily Geodon 60 daily -Please contact [facility] at [phone] to speak with supervisor case loading Dayton Plummer (will be in March 15) -Patient has appointment scheduled with Dr. Haddad at [facility] on 03/28/2018 at 9 AM. -Please contact [facility] ([place], [phone]) to coordinate restart of daily VNA services on discharge Hypothyroid Continued levothyroxine 150 mcg daily Anxiety Continued her home dose of Ativan daily Full code Regular diet She decided to leave AGAINST MEDICAL ADVICE and she does not want to continue her treatment for COPD exacerbation in the hospital. We discussed about risks of leaving hospital without completing treatment for her exacerbation of COPD. However she is competent enough to make her own decisions, left against medical advise. Allergies: Coded Allergies: quetiapine (PER PT CANT REMEMBER 01/26/18) fluphenazine (STARES AT CEILING, WEIRD GYRATIONS PER PT 01/26/18) lithium (GAINS A LOT OF WEIGHT PER PT 01/26/18) molindone (AKATHESIA 01/26/18) venom-honey bee (BEE VENOM (HONEY BEE)) (BEE VENOM WITH AKATHESIA 01/26/18) Pertinent Lab Results: cxr IMPRESSION: No dense consolidation. Bronchial wall thickening can be seen with a small airways process such as asthma or atypical/viral infection. echo CONCLUSIONS 1. Normal EF of 55% with inferior and apical hypokinesis. 2. Mild mitral regurgitation. 3. Mild tricuspid regurgitation. 4. Trace aortic insufficiency. 5. Mil pulmonic insufficiency. Disposition Summary Disposition Principal Diagnosis: COPD exacerbation/acute on chronic bronchitis NSTEMI Additional Diagnosis: SCHIZOPHRENIA Discharge Disposition: other general hospital Discharge Instructions General Discharge Information Code Status: Full Code (LINARI) Patient's Diet: As tolerated Patient's Activity: As tolerated Follow-Up Instructions/Appts: Please follow up with PCP after 1 week of discharge Please follow up with Dr. Lamar for Pulmonology after 1 week of discharge. Please follow up with Dr. Powers for Cardiology after 1 week of discharge. Return to the ED if increasing chest pain, tightness or shortness of breath pursues. -Please contact [facility] at [phone] to speak with supervisor case loading Dayton Plummer (will be in March 15) -Patient has appointment scheduled with Dr. Haddad at [facility] on 03/28/2018 at 9 AM. -[facility] ([place], [phone][facility] to coordinate restart of daily VNA services on discharge Medications at Discharge Discharge Medications: Stop taking the following medications: Propranolol HCl (Propranolol HCl) 20 MG TABLET ORAL TWICE DAILY Continue taking these medications: Levothyroxine Sodium (Levothyroxine Sodium) 150 MCG TABLET 1 Tablet ORAL DAILY BEFORE BREAKFAST Sertraline HCl (Zoloft) 25 MG TABLET 1 Tablet ORAL DAILY Carbamazepine (Tegretol) 200 MG TABLET 2 Tablet ORAL TWICE DAILY Benztropine Mesylate (Benztropine Mesylate) 0.5 MG TABLET 1 Tablet ORAL TWICE DAILY Lorazepam (Ativan) 0.5 MG TABLET 1 Tablet ORAL DAILY Simvastatin (Zocor*) 40 MG TABLET 1 Tablet ORAL Every night Ziprasidone Hydrochloride (Geodon) 60 MG CAPSULE 1 Capsule ORAL TWICE DAILY Qty = 60 Albuterol Sulfate (Albuterol Sulfate) 1.25 MG/3 ML VIAL.NEB 1 Vial Inhale Solution EVERY 4-6 HOURS as needed for shortness of breath Qty = 1 Ipratropium/Albuterol Sulfate (Combivent Respimat Inhal Logan) 20 MCG-100 MCG/ ACTUATION MIST.INHAL 1 Logan Inhale through mouth Q6H as needed for SHORTNESS OF BREATH Qty = 1 Diclofenac Potassium (Diclofenac Potassium) 50 MG TABLET 1 Tablet ORAL TWICE DAILY Qty = 60 Start taking the following new medications: Aspirin (Aspirin*) 81 MG TAB.CHEW 1 Tablet ORAL DAILY Qty = 30 No Refills Instructions: . Azithromycin (Azithromycin) 500 MG TABLET 1 Tablet ORAL DAILY Qty = 2 No Refills Instructions: . Carvedilol (Coreg) 12.5 MG TABLET 1 Tablet ORAL TWICE DAILY Qty = 60 No Refills Instructions: . Clopidogrel Bisulfate (Plavix) 75 MG TABLET 1 Tablet ORAL DAILY Qty = 30 No Refills Instructions: . Lisinopril (Lisinopril) 10 MG TABLET 1 Tablet ORAL DAILY Qty = 30 No Refills Instructions: . Prednisone (Prednisone) 10 MG TABLET 1 Tablet ORAL See Instructions Qty = 32 No Refills Instructions: take 4 pills for 3d take 3 pills for 3d take 2 pills for 3d days, take 1 pill for 3d take half pill for 3d Tiotropium Brimson (Spiriva) 18 MCG CAP.W.DEV 1 Puff Inhale through mouth DAILY Qty = 1 No Refills Budesonide/Formoterol Fumarate (Symbicort 160-4.5 Mcg Inhaler) 160 MCG-4.5 MCG/ ACTUATION HFA.AER.AD 2 Puff Inhale through mouth TWICE DAILY Qty = 1 No Refills Copies To: Makenna Gonzalez APRN Attending MD Review Statement Documenting Attending: Olegario PENA,Ron Tierney Other Findings: agree with the above dc plan
[2018-03-15] MEDS ORDERED: AZITHROMYCIN500 M3 PO (15:46)
[2018-03-15] MEDS ORDERED: PLAVIX75 M1 PO (15:46)
[2018-03-15] MEDS ORDERED: COREG12.5 M1 PO (15:46)
[2018-03-15] MEDS ORDERED: ASPIRIN81 M4 PO (15:46)
[2018-03-15] MEDS ORDERED: LISINOPRIL10 M1 PO (15:46)
[2018-03-15] MEDS ORDERED: HEPARIN-1/25000 UNI1 IV (15:46)
[2018-03-15] MEDS ORDERED: SOLU-MEDRO40 MG/1 ML IV (15:49)
--- NOTE | 2018-03-15 15:57 | Patient Discharge Instructions ---
Discharge Instructions General Discharge Information You were seen/treated for: COPD Exacerbation NSTEMI Watch for these problems: Worsening chest pain or shortness of breath or chest tightness Special Instructions: Please follow up with PCP after 1 week of discharge Please follow up with Dr. Lamar for Pulmonology after 1 week of discharge. Please follow up with Dr. Powers for Cardiology after 1 week of discharge. Return to the ED if increasing chest pain, tightness or shortness of breath pursues. -Please contact [facility] at [phone] to speak with manager case management Dayton Plummer (will be in March 15) -Patient has appointment scheduled with Dr. Haddad at [facility] on 03/28/2018 at 9 AM. -[facility], [phone][facility] to coordinate restart of daily VNA services on discharge Diet Continue normal diet: Yes Acute Coronary Syndrome Inclusion Criteria At DC or during hospital stay patient has or had the following: ACS DIAGNOSIS Yes Discharge Core Measures Meds if any: Prescribed or Continued at Discharge THEODORA/ARB if EF <40% Yes Aspirin Yes Beta-Eloy Yes Statin Yes Meds if any: NOT Prescribed or Continued at Discharge Congestive Heart Failure Inclusion Criteria At DC or during hospital stay patient has or had the following: CHF DIAGNOSIS No Discharge Core Measures Meds if any: Prescribed or Continued at Discharge Meds if any: NOT Prescribed or Continued at Discharge Cerebrovascular accident Inclusion Criteria At DC or during hospital stay patient has or had the following: CVA/TIA Diagnosis No Discharge Core Measures Meds if any: Prescribed or Continued at Discharge Meds if any: NOT Prescribed or Continued at Discharge Venous thromboembolism Inclusion Criteria VTE Diagnosis No VTE Type NONE VTE Confirmed by (Test) NONE Discharge Core Measures - Per Current guidelines, there needs to be overlap - treatment for the first 5 days of Warfarin therapy. - If discharged on Warfarin prior to 5 days of - overlap therapy, the patient will need to be - assessed for post discharge needs including - *Post discharge parental anticoagulation - *Warfarin and/or parental anticoagulation education - *Follow up date to check INR post discharge At least 5 days overlap therapy as Inpatient Yes Meds if any: Prescribed or Continued at Discharge Note: Overlap Therapy is Warfarin and Anticoagulant Meds if any: NOT Prescribed or Continued at Discharge
--- NOTE | 2018-03-15 17:01 | PN- Cardiology ---
Subjective Subjective: * No active chest discomfort. Mild shortness of breath. * sinus rhythm Objective Vital Signs and I&Os Vital Signs Date Time Temp Pulse Resp B/P B/P Pulse O2 O2 Flow FiO2 Mean Ox Delivery Rate 03/15 1631 95 Room Air Room Air 03/15 1505 97.9 63 18 124/74 93 Room Air 03/15 1227 128/76 03/15 0907 64 112/72 03/15 0907 64 112/72 03/15 0807 95 Nasal 2.0L Cannula 03/15 0636 98.0 64 18 112/72 95 Nasal Cannula 03/15 0000 95 Nasal 3.0L Cannula 03/14 2252 98.2 77 18 140/60 90 03/14 2137 98.2 70 16 140/60 90 03/14 2056 68 124/74 03/14 1723 95 Nasal 2.0L Cannula Intake & Output 03/15 1600 03/15 0800 03/15 0000 03/14 1600 03/14 0800 03/14 0000 Intake Total 478.4 970 994 482 335 Output Total 500 300 500 Balance 478.4 970 494 182 -165 Intake, IV 78.4 370 154 362 95 Intake, Oral 400 600 840 120 240 Number 0 0 0 Bowel Movements Output, Urine 500 300 500 Patient 170 lb 168 lb Weight Weight Bed scale Measurement Method Physical Exam: General: WD/obese female in NAD; alert and oriented x 3 HEENT: NC/AT, PERRL, EOMI Neck: no JVD, no carotid bruit Heart: RRR w/o murmur Lungs: decreased air movement bilaterally with wheezing Abdomen: soft, obese, NT, +ve bowel sounds Extremities: no edema Assessment/Plan Assessment/Plan * This patient has multiple risk factors for coronary artery disease and has ruled in for an AK by cardiac enzymes. She is currently pain free. Continue IV heparin, aspirin 325mg daily and Plavix 75mg daily. Continue NTG paste 1 inch Q 6 hours and Coreg 12.5mg BID. Continue Atorvastatin 40mg daily and Lisinopril 10mg daily. * This patient carries a history of COPD/asthma and is currently wheezing. Please follow pulmonary recommendations. * This patient continues to have wheezing and suboptimal pulmonary status. We will hold off on a cardiac catheterization until improved and will likely pursue this as an outpatient. Continue telemetry? Yes
[2018-03-15 22:05] VITALS: BP 130/70
[2018-03-15 23:20] LABS: PTT 87 SEC (25-37)
[2018-03-16 06:00] VITALS: BP 146/80
--- NOTE | 2018-03-16 06:56 | PN- Housestaff ---
Annette Becker 03/16/18 0656: Subjective Follow-up For: COPD Exacerbation NSTEMI Tele-Events Since Last Visit: Acc Junctional, 65 HR, 0.14, 0.22, Subjective: Patient seen and examined at bedside this morning. She was very upset about not going to the cath lab tech today. Unfortunately, cardiology did not want to proceed at this time since patient was not stable from a pulmonology standpoint. She was currently receiving IV steroids q8. She denied any chest pain or shortness of breath this morning. However, she became frustrated with her stay and wanted to go home against medical advice. Patient understood and had clear capacity of her condition and was advised to stay in the hospital. Review of Systems Constitutional: Denies: see HPI. Objective Last 24 Hrs of Vital Signs/I&O Vital Signs Date Time Temp Pulse Resp B/P B/P Pulse O2 O2 Flow FiO2 Mean Ox Delivery Rate 03/16 0904 146/80 03/16 0904 146/80 03/16 0829 95 Nasal 2.0L Cannula 03/16 06 97.7 70 22 146/80 95 03/16 0000 Room Air 03/15 2205 97.8 79 18 130/70 93 Room Air 03/15 1932 63 124/74 03/15 1631 95 Room Air Room Air 03/15 1505 97.9 63 18 124/74 93 Room Air Intake & Output 03/16 1600 03/16 0800 03/16 0000 Intake Total 580 Output Total Balance 580 Intake, IV 380 Intake, Oral 200 Patient 176 lb Weight Weight Bed scale Measurement Method Physical Exam General Appearance: Alert, Oriented X3, Cooperative, Patient frustrated and wants to go home AMA Cardiovascular: Regular Rate, Normal S1, Normal S2, No Murmurs Lungs: Wheezing appreciated on auscultation of the lung otto Abdomen: Normal Bowel Sounds, Soft, No Tenderness Neurological: Strength at 5/5 X4 Ext, Normal Tone, Hyperactive speech Extremities: No Clubbing, No Cyanosis, No Edema, Normal Pulses Vascular: Normal Pulses Current Medications: Current Medications Sig/Keesha Start time Last Medication Dose Route Stop Time Status Admin Acetaminophen 650 MG Q8P PRN 03/13 0115 DCD 03/14 PO 0604 Albuterol Sulfate 3 ML EVERY 4 HRS/AWAKE 03/14 1200 DCD 03/16 INH 0818 Aspirin 325 MG DAILY 03/13 1347 DCD 03/16 PO 0903 Atorvastatin Calcium 40 MG 1700 07 1700 DCD 07 PO 1710 Azithromycin 500 MG 2200 03/13 2200 DCD 03/15 Sodium Chloride 250 ML IV 2203 Benztropine Mesylate 0.5 MG BID 03/14 1320 DCD 03/16 PO 0903 Budesonide/ 2 PUF BID 03/13 09 DCD 03/16 Formoterol Fumarate INH 0906 Carbamazepine 400 MG BID 03/13 09 DCD 03/16 PO 0904 Carvedilol 12.5 MG BID 03/14 2100 DCD 03/16 PO 0904 Clopidogrel Bisulfate 75 MG DAILY 03/14 09 DCD 03/16 PO 0904 Guaifenesin 10 ML Q6P PRN 03/13 0230 DCD PO Heparin Sodium 25,000 UNIT Q24H 03/13 0415 DCD 03/16 (Porcine) IV 0642 Sodium Chloride 500 ML Levothyroxine Sodium 0.15 MG DAILY AC 03/13 07 DCD 03/16 PO 0903 Lisinopril 10 MG DAILY 03/13 1347 DCD 03/16 PO 0904 Lorazepam 0.5 MG TIDPRN PRN 03/14 1345 DCD 03/15 PO 03/21 1344 1346 Lorazepam 0.5 MG DAILY 03/13 0900 DCD 03/16 PO 07 0859 0902 Melatonin 5 MG AT BEDTIME 03/13 0315 DCD 03/15 PO 1933 Methylprednisolone 40 MG Q8 03/15 1400 DCD 03/16 IV 0642 Nitroglycerin 1 GM Q6 03/13 1349 DCD 03/16 TOP 0642 Patient Medication 1 ED ONE ONE 03/15 1730 DC Teaching ED 03/15 1731 Sertraline HCl 25 MG DAILY 03/13 900 DCD 03/16 PO 0904 Tiotropium [place] 1 PUF DAILY 03/14 1553 DCD 03/16 INH 0906 Ziprasidone 60 MG BID 03/13 900 DCD 03/16 PO 0904 Last 24 Hrs of Lab/Boris Results Last 24 Hrs of Labs/Mics: Laboratory Tests 03/16/18 1100: APTT Cancelled 03/16/18 0642: Anion Gap 7, Estimated GFR > 60, BUN/Creatinine Ratio 27.5 H, CBC w Diff NO MAN DIFF REQ, RBC 3.83 L, MCV 96.2, MCH 32.8 H, MCHC 34.0, RDW 14.0, MPV 7.9, Gran % 87.5 H, Lymphocytes % 7.4 L, Monocytes % 5.0, Eosinophils % 0, Basophils % 0.1, Absolute Granulocytes 6.2, Absolute Lymphocytes 0.5 L, Absolute Monocytes 0.4, Absolute Eosinophils 0, Absolute Basophils 0 03/15/18 2258: APTT 87 H Assessment/Plan Assessment: A/P: Patient is a 63 year old female with past medical history of schizophrenia, bipolar disorder, anxiety and COPD not on home O2 smoker of 2 packs a day for past 48 years, HTN, HLD, breast cancer status post lumpectomy who came to the ED for acute onset of dyspnea and chest pain for 3 days. Patients troponins elevated consistently to 1.12 most recent 03/16/18. Patient received IV heparin in the ICU and is now being monitored in the telemetry unit. Patient signed out AMA today 03/16/18. She had clear capacity and understood her medical condition. Patient was frustrated after not being cleared to go to catherization today as she was not stable from a pulmonology stand point. Patient advised to stay since she is on IV steroids q8. Patient seen but Dr. Powers this morning. Followup can be continued in the outpatient. Problem List: 1. NSTEMI 2. COPD Exacerbation PLAN * Patient signed AMA today 03/16/18. Ruled in for [place] by cardiac enzymes. Patient currently denies shortness of breath or chest pain. * Patient educated on smoking cessation and the importance of returning if worsening symptoms including chest pain, tightness, shortness of breath, fevers or chills. * Patient given inhaler teaching prior to discharge * Patient to continue prednisone 40 mg for 3 days, 30 mg for 3 days, 20 mg for 3 days, 10 mg for 3 days, 5 mg for 3 days then discontinue prednisone; continue TRC/Nebulizer;Inhaler treatments * Finish 5 days of Azithromycin therapy * Advised to follow up with PCP, pulmonology and cardiology after discharge * Dr. Powers to follow patient for outpatient followup and reasses later for possible cardiac catherization Code Status: Full Code DVT PPx: Heparin SC Diet: Heart Healthy Problem List: 1. COPD exacerbation 2. Schizoaffective disorder 3. NSTEMI (non-ST elevated myocardial infarction) Pain Ratin Pain Location: Patient denied pain today Pain Goal: Remain pain free Pain Plan: As per pain pathway Tomorrow's Labs & Rationales: Patient leaving AMA today DVT/Prophylaxis: pharmacological Discharge Plan Discharge Disposition: [facility] Ron Melvin 03/16/18 1448: Attending MD Review Statement Attending Statement Attending MD Statement: examined this patient, discuss w/resident/PA/BEATER MACHINE OPERATOR, agreed w/resident/PA/BEATER MACHINE OPERATOR, reviewed EMR data (avail), discussed with nursing, discussed with case mgmt Attending Assessment/Plan: Acute copd exacerbation- pt agitated this am and wants to be dced. explained her that she is on high dose of steroids. pt does not want to stay and signed out AMA . dced on prednisone taper. Outpatient cath will be arranged by Dr Powers
--- NOTE | 2018-03-16 07:41 | PN- Pulmonary ---
Subjective HPI/Critical Care Issues: The patient is awake and following commands. She is intermittently agitated. She was angry over being informed about the importance of smoking cessation. She reports her respiratory status is improved, noting she is less short of breath and wheezing less. She denies any chest pain. She has no cough, sputum production, fever or chills. Objective Current Medications: Current Medications Sig/Keesha Start time Last Medication Dose Route Stop Time Status Admin Acetaminophen 650 MG Q8P PRN 03/13 0115 AC 03/14 PO 0604 Albuterol Sulfate 3 ML EVERY 4 HRS/AWAKE 03/14 1200 AC 03/15 INH 2036 Aspirin 325 MG DAILY 03/13 1347 AC 03/15 PO 0907 Atorvastatin Calcium 40 MG 1700 03/13 1700 AC 03/15 PO 1710 Azithromycin 500 MG 2200 03/13 2200 AC 03/15 Sodium Chloride 250 ML IV 220 Benztropine Mesylate 0.5 MG BID 03/14 1320 AC 03/15 PO 193 Budesonide/ 2 PUF BID 03/13 09 AC 03/15 Formoterol Fumarate INH 193 Carbamazepine 400 MG BID 03/13 09 AC 03/15 PO 193 Carvedilol 12.5 MG BID 03/14 2100 AC 03/15 PO 193 Clopidogrel Bisulfate 75 MG DAILY 03/14 0900 AC 03/15 PO 09 Guaifenesin 10 ML Q6P PRN 03/13 0230 AC PO Heparin Sodium 4,572 UNIT ONCE ONE 03/15 1415 DC 03/15 (Porcine) IV 03/15 1416 1436 Heparin Sodium 5,000 UNIT .STK-MED ONE 03/15 1408 DC (Porcine) IV 03/15 1409 Heparin Sodium 25,000 UNIT Q24H 03/13 0415 AC 03/16 (Porcine) IV 0642 Sodium Chloride 500 ML Levothyroxine Sodium 0.15 MG DAILY AC 03/13 0700 AC 03/15 PO 0704 Lisinopril 10 MG DAILY 03/13 1347 AC 03/15 PO 0907 Lorazepam 0.5 MG TIDPRN PRN 03/14 1345 AC 03/15 PO 03/21 1344 1346 Lorazepam 0.5 MG DAILY 03/13 0900 AC 03/15 PO 03/20 0859 0906 Melatonin 5 MG AT BEDTIME 03/13 0315 AC 03/15 PO 1933 Methylprednisolone 40 MG Q8 03/15 1400 AC 03/16 IV 0642 Methylprednisolone 40 MG Q12 03/14 2100 DC 03/15 IV 0906 Nitroglycerin 1 GM Q6 03/13 1349 03/16 TOP 0642 Patient Medication 1 ED ONE ONE 03/15 1730 DC Teaching ED 03/15 1731 Sertraline HCl 25 MG DAILY 03/13 09 AC 03/15 PO 0906 Tiotropium [place] 1 PUF DAILY 03/14 1553 AC 03/15 INH 0907 Ziprasidone 60 MG BID 03/13 09 AC 03/15 PO 1933 Vital Signs & I&O Last 24 Hrs of Vitals and I&O: Vital Signs Date Time Temp Pulse Resp B/P B/P Pulse O2 O2 Flow FiO2 Mean Ox Delivery Rate 03/16 06 97.7 70 22 146/80 95 03/15 2205 97.8 79 18 130/70 93 Room Air 03/15 1932 63 124/74 03/15 1631 95 Room Air Room Air 03/15 1505 97.9 63 18 124/74 93 Room Air 03/15 1227 128/76 03/15 0907 64 112/72 03/15 0907 64 112/72 03/15 0807 95 Nasal 2.0L Cannula 03/15 0800 94 Room Air Room Air Intake & Output 03/16 0800 03/16 0000 03/15 1600 Intake Total 580 700 Output Total Balance 580 700 Intake, IV 380 100 Intake, Oral 200 600 Patient 176 lb Weight Weight Bed scale Measurement Method Physical Exam General Appearance: well developed/nourished, no apparent distress, alert, awake , comfortable Respiratory: decreased breath sounds, wheezing throughout both lung otto but improved over the past several days Cardiovascular: regular rate/rhythm, normal peripheral pulses Gastrointestinal: normal bowel sounds, soft, non-tender Extremities: normal inspection, normal capillary refill, normal range of motion, no edema Results Last 24 Hrs of Lab Results: Laboratory Tests 03/16/18 0642: Sodium Pending, Potassium Pending, Chloride Pending, Carbon Dioxide Pending, Anion Gap Pending, BUN Pending, Creatinine Pending, BUN/Creatinine Ratio Pending , CBC w Diff Pending, WBC Pending, RBC Pending, Hgb Pending, Hct Pending, MCV Pending, MCH Pending, MCHC Pending, RDW Pending, Plt Count Pending, MPV Pending 03/15/18 2258: APTT 87 H 03/15/18 1030: APTT 32 Impression/Plan Impression/Plan Impression/Plan: 1. Acute exacerbation of COPD, with improving bronchospasm. 2. Non-ST elevation [place] in the setting of acute respiratory failure. 3. Schizophrenia. 4. History of hypothyroidism. 5. Tobacco use disorder. Recommendations: * Follow-up morning labs. * The patient is asking to be discharged as a result of not undergoing catheterization as per the primary team. * Change to prednisone 40 mg for 3 days, 30 mg for 3 days, 20 mg for 3 days, 10 mg for 3 days, 5 mg for 3 days then discontinue prednisone. * Spiriva 1 inhalation daily. * Continue Symbicort 160/2.5, 2 puffs every 12 hours. * Please request inhaler teaching prior to discharge if the patient goes home later today. * Complete 5 days of azithromycin therapy. * Continue with smoking cessation counseling. * Will follow up with primary team.
--- NOTE | 2018-03-16 08:09 | PN- Cardiology ---
Subjective Subjective: * No specific complaints of chest discomfort or shortness of breath. * sinus rhythm Objective Vital Signs and I&Os Vital Signs Date Time Temp Pulse Resp B/P B/P Pulse O2 O2 Flow FiO2 Mean Ox Delivery Rate 03/16 06 97.7 70 22 146/80 95 03/15 2205 97.8 79 18 130/70 93 Room Air 03/15 1932 63 124/74 03/15 1631 95 Room Air Room Air 03/15 1505 97.9 63 18 124/74 93 Room Air 03/15 1227 128/76 03/15 0907 64 112/72 03/15 0907 64 112/72 03/15 0807 95 Nasal 2.0L Cannula Intake & Output 03/16 1600 03/16 0800 03/16 0000 03/15 1600 03/15 0800 03/15 0000 Intake Total 580 700 478.4 970 Output Total Balance 580 700 478.4 970 Intake, IV 380 100 78.4 370 Intake, Oral 200 600 400 600 Patient 176 lb 170 lb Weight Weight Bed scale Measurement Method Physical Exam: General: WD/obese female in NAD; alert and oriented x 3 HEENT: NC/AT, PERRL, EOMI Neck: no JVD, no carotid bruit Heart: RRR w/o murmur Lungs: decreased air movement bilaterally, no wheezing Abdomen: soft, obese, NT, +ve bowel sounds Extremities: no edema Assessment/Plan Assessment/Plan * This patient has multiple risk factors for coronary artery disease and has ruled in for an [place] by cardiac enzymes. She is currently pain free. Stop heparin and continue aspirin 325mg daily and Plavix 75mg daily. Change NTG to a patch at 0.4mg/hr for 12 hours daily. Continue Coreg 12.5mg BID. Continue Atorvastatin 40mg daily and Lisinopril 10mg daily. * This patient carries a history of COPD/asthma. Her wheezing has resolved although she has decreased air movement. Please follow pulmonary recommendations. * This patient is improved from a pulmonary standpoint although perhaps not quite back to baseline. She appears to be doing well on medical therapy. We will hold off on a cardiac catheterization and reassess later for possible outpatient cardiac catheterization. Continue telemetry? Yes
[2018-03-16 08:35] LABS: ABSOLUTE BASOPHIL COUNT 0 /CUMM (0.0-0.2); ABSOLUTE EOSINOPHIL COUNT 0 /CUMM (0.0-0.7); ABSOLUTE GRANULOCYTE CT 6.2 /CUMM (1.4-6.5); ABSOLUTE LYMPH COUNT 0.5 /CUMM (1.2-3.4); ABSOLUTE MONOCYTE COUNT 0.4 /CUMM (0.10-0.60); BASOPHIL % 0.1 % (0.0-2.0); EOSINOPHIL % 0 % (0-5); GRANULOCYTE % 87.5 % (42.2-75.2); HEMATOCRIT 36.9 % (37-47); MEAN CORPUSCULAR HGB 32.8 PG (27.0-31.0); MEAN CORPUSCULAR VOLUME 96.2 FL (81.0-99.0); MEAN PLATELET VOLUME 7.9 FL (7.4-10.4); PLATELET COUNT 240 /CUMM (130-400); RED BLOOD CELL CT 3.83 /CUMM (4.20-5.40)
[2018-03-16 09:04] VITALS: BP 146/80
[2018-03-16] MEDS ORDERED: AZITHROMYCIN500 M3 PO (09:45)
[2018-03-16] MEDS ORDERED: SPIRIVA18 MCG INH (09:45)
[2018-03-16] MEDS ORDERED: SYMBICORT 16010.2 GM INH (09:45)
[2018-03-16] MEDS ORDERED: LISINOPRIL10 M1 PO (09:45)
[2018-03-16] MEDS ORDERED: ASPIRIN81 M4 PO (09:45)
[2018-03-16] MEDS ORDERED: PLAVIX75 M1 PO (09:45)
[2018-03-16] MEDS ORDERED: PREDNISONE10 M2 PO ×2 (09:45→09:49)
[2018-03-16] MEDS ORDERED: COREG12.5 M1 PO (09:45)
[2018-03-16 09:59] LABS: WHITE BLOOD CELL COUNT 7.1 /CUMM (4.8-10.8)
--- NOTE | 2018-03-16 11:58 | Event Note ---
Event Note Event Note: Patient was upset that she is not going for cardiac catheterisation this morning as her breathing is not back to baseline. Lime Sludge Mixer wants to follow-up her as an outpatient and plan for elective cardiac cath procedure. She decided to leave AGAINST MEDICAL ADVICE and she does not want to continue her treatment for COPD exacerbation in the hospital. We discussed about risks of leaving hospital without completing treatment for her exacerbation of COPD. However she is competent enough to make her own decisions, left against medical advise. Patient left AMA, she was sent on prednisone tapering doses 40 mg 3 days, 30 mg 3 days, 20 mg 3 days, 10 mg 3 days, 5 mg 3 days. Azithromycin prescription was provided to complete 5 day course. She was given prescription for Symbicort and Spiriva. Advised to take albuterol inhaler as needed every 3 hours for shortness of breath. She was advised to follow-up with steel post installer supervisor in the office. She was advised to follow-up with Dr. Powers as outpatient for cardiac cath procedure.
== END 2018-03-16 10:00 | disposition left against medical advice (07) | DRG 281 ==
LOC: ERH 21:53 → CRI 23:40 → ERHI 23:40 → ENRESERV 03-13 01:23 → 1NO 03-13 01:45 → CRI 03-13 12:22 → ENTRNSPT 03-14 20:27 → EDTRNSPTSTS 03-14 20:48 → EDTRNSPT 03-14 20:48 → 1NO 03-14 21:11 → CMPTRNSPT 03-14 21:19 → 1NO 03-15 07:51 → ENPENDDIS 03-16 09:49 → 1NO 03-16 10:00
PROVIDERS: Emergency Medicine; Internal Medicine; Internal Medicine Endocrinology, Diabetes & Metabolism; Internal Medicine Infectious Disease; Physical Medicine & Rehabilitation Pain Medicine; Preventive Medicine Public Health & General Preventive Medicine; Student in an Organized Health Care Education/Training Program
DX: I21.4 Non-ST elevation (NSTEMI) myocardial infarction (principal); J44.1 Chronic obstructive pulmonary disease with (acute) exacerbation; F17.210 Nicotine dependence, cigarettes, uncomplicated; F25.9 Schizoaffective disorder, unspecified; I10 Essential (primary) hypertension; J44.9 Chronic obstructive pulmonary disease, unspecified; E78.5 Hyperlipidemia, unspecified; E03.9 Hypothyroidism, unspecified; I44.7 Left bundle-branch block, unspecified; Z85.3 Personal history of malignant neoplasm of breast; F41.9 Anxiety disorder, unspecified
CPT/HCPCS: 1NP; CCU; ERO; 36415; 36592; 71045; 82436; 87040; 87070; 93005; 93010; 93306; 94060-59; 96365; 96366; 96375; 99291; J0456; J0713; J1644; J2405; J2920; J2930; J3101; J3490; J7040

== ENCOUNTER 2018-03-23 05:16 | Emergency (ER) | payer OTHER, MEDICARE ==
[~2018-03-23] VITALS: Ht 160 cm; Wt 76.2 kg
[~2018-03-23 05:16] MED LIST changes: +ALBUTEROL1.25 MG/1 INH/SOL; +ASPIRIN81 M4 PO; +AZITHROMYCIN500 M3 PO; +COMBIVENT RESPIM4 GM INH; +COREG12.5 M1 PO; +DICLOFENAC POTA50 M1 PO; +HEPARIN-1/25000 UNI1 IV; +LISINOPRIL10 M1 PO; +PLAVIX75 M1 PO; +PREDNISONE10 M2 PO; +SOLU-MEDRO40 MG/1 ML IV; +SPIRIVA18 MCG INH; +SYMBICORT 16010.2 GM INH
--- NOTE | 2018-03-23 05:23 | ED PSYCHIATRIC COMPLAINT ---
See Addendum History of Present Illness General Chief Complaint: Psychiatric Related Complaint Stated Complaint: BIBA, PARANOID THOUGHTS Source: patient, EMS Exam Limitations: no limitations Vital Signs & Intake/Output Vital Signs & Intake/Output Vital Signs Date Time Temp Pulse Resp B/P B/P Pulse O2 O2 Flow FiO2 Mean Ox Delivery Rate 03/23 0631 172/96 03/23 0631 172/96 03/23 0540 96 03/23 0531 95 Room Air Room Air 03/23 0520 97.8 69 18 172/96 95 Room Air Allergies Coded Allergies: quetiapine (PER PT CANT REMEMBER 01/26/18) fluphenazine (STARES AT CEILING, WEIRD GYRATIONS PER PT 01/26/18) lithium (GAINS A LOT OF WEIGHT PER PT 01/26/18) molindone (AKATHESIA 01/26/18) venom-honey bee (BEE VENOM (HONEY BEE)) (BEE VENOM WITH AKATHESIA 01/26/18) Reconcile Medications Albuterol Sulfate 1.25 MG/3 ML VIAL.NEB 1 Vial INH/JADEN Q4-6 PRN shortness of breath (Reported) Aspirin (Aspirin*) 81 MG TAB.CHEW 1 TAB PO DAILY ACS . Azithromycin 500 MG TABLET 1 TAB PO DAILY COPD . Benztropine Mesylate 0.5 MG TABLET 1 TAB PO BID MENTAL HEALTH (Reported) Budesonide/Formoterol Fumarate (Symbicort 160-4.5 Mcg Inhaler) 160 MCG-4.5 MCG/ ACTUATION HFA.AER.AD 2 PUF INH BID copd Carbamazepine (Tegretol) 200 MG TABLET 2 TAB PO BID MENTAL HEALTH (Reported) Carvedilol (Coreg) 12.5 MG TABLET 1 TAB PO BID ACS . Clopidogrel Bisulfate (Plavix) 75 MG TABLET 1 TAB PO DAILY NSTEMI . Diclofenac Potassium 50 MG TABLET 1 TAB PO BID PAIN (Reported) Ipratropium/Albuterol Sulfate (Combivent Respimat Inhal Dingess) 20 MCG-100 MCG/ ACTUATION MIST.INHAL 1 SPRAY INH Q6H PRN SHORTNESS OF BREATH (Reported) Levothyroxine Sodium 150 MCG TABLET 1 TAB PO DAILY AC THYROID (Reported) Lisinopril 10 MG TABLET 1 TAB PO DAILY NSTEMI . Lorazepam (Ativan) 0.5 MG TABLET 1 TAB PO DAILY ANXIETY (Reported) Prednisone 10 MG TABLET 1 TAB PO SI copd take 4 pills for 3d take 3 pills for 3d take 2 pills for 3d days, take 1 pill for 3d take half pill for 3d Sertraline HCl (Zoloft) 25 MG TABLET 1 TAB PO DAILY MENTAL HEALTH (Reported) Simvastatin (Zocor*) 40 MG TABLET 1 TAB PO QPM CHOLESTEROL (Reported) Tiotropium [place] (Spiriva) 18 MCG CAP.W.DEV 1 PUF INH DAILY copd Ziprasidone Hydrochloride (Geodon) 60 MG CAPSULE 1 CAP PO BID MENTAL HEALTH ( Reported) Triage Note: PT FROM HOME C/O PARANOID THOUGHTS SINCE THIS AM. PT STATES "I THINK MY NURSE IS TRYING TO HARM ME AT HOME BY GIVING ME THE WRONG MEDS" PT STATES SHE HAS AUDITORY AND VISUAL HALLUCINATIONS. PT DENIES -HI/-SI. PT ARRIVES A&0X3. DR MICHAEL IN FOR EVAL. PT HAS FLIGHT OF IDEAS, WORD SALAD. Triage Nurses Notes Reviewed? yes Onset: Gradual Duration: day(s): Timing: recent history Severity: moderate Associated Symptoms: anxiety HPI: 63 YO woman h/o schizophrenia, presents with the belief that "someone is in my apartment and out to get me... I 'm afraid that someone is in there... it's freaking me out.... I feel like someone is always watching me." She notes occasional visual hallucinations. "I see things sometimes in front of my eyes." She denies auditory hallucinations. She notes that she has been taking her medications without problem, via [facility]. She denies alcohol or drug abuse. She denies SI/HI. Past History Travel History Traveled to [place] past 21 day No Medical History Any Pertinent Medical History? see below for history Neurological: NONE EENT: NONE Cardiovascular: hypertension Respiratory: COPD Gastrointestinal: NONE Hepatic: NONE Renal: NONE Musculoskeletal: R HIP/FEMUR/PELVIC FX/SX Psychiatric: schizoaffective disorder, borderline personality disorder, tobacco use disorder. Endocrine: hypothyroidism Blood Disorders: NONE Cancer(s): breast cancer MEDICAL OPERATIONS SUPERVISOR/Reproductive: NONE History of MRSA: No History of VRE: No History of CDIFF: No Tetanus Vaccine: 05/03/16 Surgical History Surgical History: status post lumpectomy Psychosocial History Who do you live with Patient/Self Services at Home Nursing What is your primary language Romansh Tobacco Use: Current Daily Use Daily Tobacco Use Amount/Type: => 5 Cigarettes daily ETOH Use: heavy use Family History Family History, If Any: FATHER FH: CAD (coronary artery disease) Hx Contributory? No Review of Systems Review of Systems Constitutional: Reports: no symptoms. EENTM: Reports: no symptoms. Respiratory: Reports: no symptoms. Cardiovascular: Reports: no symptoms. GI: Reports: no symptoms. Genitourinary: Reports: no symptoms. Musculoskeletal: Reports: no symptoms. Skin: Reports: no symptoms. Neurological/Psychological: Reports: no symptoms. Hematologic/Endocrine: Reports: no symptoms. Immunologic/Allergic: Reports: no symptoms. All Other Systems: Reviewed and Negative Physical Exam Physical Exam General Appearance: well developed/nourished, mild distress Head: atraumatic Eyes: Bilateral: normal appearance. Ears, Nose, Throat: normal pharynx, normal ENT inspection, hearing grossly normal Neck: normal inspection, supple Respiratory: normal breath sounds Cardiovascular: regular rate/rhythm Gastrointestinal: soft, non-tender Extremities: normal range of motion Neurological/Psychiatric: no motor/sensory deficits, awake, anxious, animated, pressured speech Appearance/Memory/Insight: disheveled, impaired insight Behavoir/Eye Contact/Speech: cooperative Thoughts/Hallucinations: delusions, flight of ideas, paranoid Skin: intact, normal color, warm/dry SAD PERSONS Done? patient not suicidal Progress Differential Diagnosis: schizophrenia vs other. Plan of Care: Orders Procedure Date/time Status Regular Diet 03/23 B Active Add-on Test (ER Only) 03/23 0607 Active THYROID STIMULATING HORMONE 03/23 0532 Active TEGRETOL LEVEL 03/23 0532 Active FREE T4 03/23 0532 Active Continuous Observation Monitor 03/23 0522 Active URINE DRUG SCREEN FOR ER ONLY 03/23 0522 Complete ETHANOL 03/23 05 Active COMPREHENSIVE METABOLIC PANEL 03/23 0522 Active CBC WITHOUT DIFFERENTIAL 03/23 05 Complete ED CRISIS PSYCH CONSULT 03/23 05 Active Current Medications Sig/Keesha Start time Last Medication Dose Stop Time Status Admin Atorvastatin Calcium 40 MG 1700 03/23 1700 UNVr (Lipitor) Benztropine Mesylate 0.5 MG BID 03/23 09 UNVr 03/23 (Cogentin 0.5 MG Tab) 0631 Budesonide/ 2 PUF BID 03/23 09 UNVr Formoterol Fumarate (Symbicort) Carbamazepine 400 MG BID 03/23 900 UNVr 03/23 (Tegretol) 06 Carvedilol 12.5 MG BID 03/23 900 UNVr 03/23 (Coreg) 0631 Clopidogrel Bisulfate 75 MG DAILY 03/23 900 UNVr 03/23 (Plavix) 0631 Lisinopril 10 MG DAILY 03/23 900 UNVr 03/23 (Prinivil) 0631 Sertraline HCl 25 MG DAILY 03/23 900 UNVr 03/23 (Zoloft) [address] [place] 1 PUF DAILY 03/23 900 UNVr (Spiriva) Ziprasidone 60 MG BID 03/23 900 UNVr (Geodon 60 MG Cap) Levothyroxine Sodium 0.15 MG DAILY AC 03/23 700 UNVr 03/23 (Synthroid) 0631 Lorazepam 1 MG Q2P PRN 03/23 05 UNVr (Ativan) Naproxen 500 MG BID PRN 03/23 05 UNVr (Naprosyn) Laboratory Tests 03/23/18 0616: Urine Opiates Screen < 100, Methadone Screen < 40, Barbiturate Screen < 60, Ur Phencyclidine Scrn < 6.00, Amphetamines Screen < 100, U Benzodiazepines Scrn < 85, Urine Cocaine Screen < 50, Urine Cannabis Screen < 5.00 03/23/18 0532: Anion Gap 9, Estimated GFR > 60, BUN/Creatinine Ratio 35.6 H, Glucose 111 H, Calcium 10.2, Total Bilirubin 0.6, AST 59 H, ALT 109 H, Alkaline Phosphatase 76, Total Protein 7.6, Albumin 4.2, Globulin 3.4, Albumin/Globulin Ratio 1.2, TSH Pending, Free T4 1.01, CBC w Diff MAN DIFF ORDERED, RBC 3.91 L, MCV 95.9, MCH 32.9 H, MCHC 34.3, RDW 13.9, MPV 7.5, Gran % 83.1 H, Lymphocytes % 10.3 L , Monocytes % 6.5, Eosinophils % 0.1, Basophils % 0, Absolute Granulocytes 8.5 H, Absolute Lymphocytes 1.0 L, Absolute Monocytes 0.7 H, Absolute Eosinophils 0, Absolute Basophils 0, Platelet Estimate ADEQUATE, Normocytic RBCs VERIFIED, Normochromic RBCs VERIFIED, Carbamazepine 3.1 L, Serum Alcohol < 10.0 03/23/18 0523: Carbamazepine Cancelled Hand-Off Endorsed To: Serafin Witt DO Endorsed Time: 0700 Pending: consult, labs Departure Departure Disposition: STILL A PATIENT Condition: Stable Clinical Impression Primary Impression: Schizophrenia Secondary Impressions: Delusions Referrals: Makenna Gonzalez APRN (PCP/Family) Departure Forms: Customer Survey General Discharge Information Comments Pt given her AM psyche meds... labs pending... crises eval this AM.
[2018-03-23 05:42] LABS: ABSOLUTE BASOPHIL COUNT 0 /CUMM (0.0-0.2); ABSOLUTE EOSINOPHIL COUNT 0 /CUMM (0.0-0.7); ABSOLUTE GRANULOCYTE CT 8.5 /CUMM (1.4-6.5); ABSOLUTE MONOCYTE COUNT 0.7 /CUMM (0.10-0.60); BASOPHIL % 0 % (0.0-2.0); EOSINOPHIL % 0.1 % (0-5); GRANULOCYTE % 83.1 % (42.2-75.2); HEMATOCRIT 37.5 % (37-47); MEAN CORPUSCULAR HGB 32.9 PG (27.0-31.0); MEAN CORPUSCULAR HGB CONC 34.3 G/DL (33.0-37.0); MEAN CORPUSCULAR VOLUME 95.9 FL (81.0-99.0); MEAN PLATELET VOLUME 7.5 FL (7.4-10.4); PLATELET COUNT 273 /CUMM (130-400); RBC DISTRIBUTION WIDTH 13.9 % (11.5-14.5); RED BLOOD CELL CT 3.91 /CUMM (4.20-5.40); WHITE BLOOD CELL COUNT 10.2 /CUMM (4.8-10.8)
--- NOTE | 2018-03-23 09:51 | ED PSY CRISIS COLLATERAL NOTE ---
Collateral Note Collateral Note Family/Inform/William Contacts: Crisis spoke with pt's Sister, Jaqueline Appiah, . She states that she last spoke to the pt last night while she was outside in [facility] with her boyfriend smoking cigarrettes. She states she sounded happy. She did note that she missed a call from the pt around 4 a.m. She will contact pt's visiting nurse and ask her to call us. She also noted that the pt was seen in the ED a couple weeks ago after having a heart attack. She has a follow up appointment with Dr. Powers on 03/25/18. Sister will be coming to [place] on Wednesday to attend this appointment. She confirms that pt is an active Care client and Sharad Plummer is the case specialist and current prescriber is Dr. Fitzgerald. Crisis recieved call from Litzy from [facility]. Litzy, her primary nurse, states the patient had a heart attack a few weeks ago and is has 6 or 7 new medications for her heart. She is also on a Prednisone taper. Litzy believes the patient is was used to her medication regimine as it was the same for a long time. Litzy states that she believes pt is confused about her medications as there are new medications. She also believes the Prednisone is affecting her. Litzy states she is there almost every morning by 7:30 a.m. (there is another nurse that goes when Litzy is off). She also pre pours her evening meds. She states if she is discharged she will stop by tonight to pour her evening meds. She would like a call back regarding the final dispo. [phone] (cell) or [phone]. Crisis left message for Airam Juarez, [facility]- [phone]. Crisis emailed Sharad Plummer from [facility] as [facility]'s phones are stating the office is closed at this time.
--- NOTE | 2018-03-23 10:30 | ED PSYCH CRISIS CONSULTATION ---
Crisis Consult Basic Assessment Date of Consult: 03/23/18 Responsible Person/Accompanied By: self Insurance Authorization: Insurance #1: Insurance name: MEDICARE A Phone number: Policy number: [id number] Group number: Authorization number: ED Provider: Patient's ED Provider: Serafin Witt DO Primary Care Physician: Patient's PCP: Makenna Gonzalez APRN PCP's Current Psychiatrist: Dr. Fitzgerald, [facility] Chief Complaint: Psychiatric Related Complaint Patient's Quote: "The nurse doesn't fill my pills right" Present Illness: Pt is a 63 year old female presenting to the ED via EMS overnight. Pt reported upon arrival to triage stating her "nurse is trying to harm me by giving me the wrong meds". Pt was rambling and presented with word salad per nursing notes. She was given Ativan 2mg and was lethargic and falling asleep when the crisis initially attempted to interview the pt. Before falling asleep the pt stated she thinks her nurse doesn't fill her pills right and that she wants to go home. Crisis spoke to pt's sister and visiting nurse for collateral. anatoliy spoke with pt's Sister, Jaqueline Appiah, . She states that she last spoke to the pt last night while she was outside in [facility] with her boyfriend smoking cigarrettes. She states she sounded happy. She did note that she missed a call from the pt around 4 a.m. She will contact pt's visiting nurse and ask her to call us. She also noted that the pt was seen in the ED a couple weeks ago after having a heart attack. She has a follow up appointment with Dr. Powers on 03/25/18. Sister will be coming to [place] on Wednesday to attend this appointment. She confirms that pt is an active Care client and Sharad Plummer is the patient case manager and current prescriber is Dr. Fitzgerald. Crisis recieved call from Litzy from [facility]. Litzy, her primary nurse, states the patient had a heart attack a few weeks ago and is has 6 or 7 new medications for her heart. She is also on a Prednisone taper. Litzy believes the patient is was used to her medication regimine as it was the same for a long time. Litzy states that she believes pt is confused about her medications as there are new medications. She also believes the Prednisone is affecting her. Litzy states she is there almost every morning by 7:30 a.m. (there is another nurse that goes when Litzy is off). She also pre pours her evening meds. She states if she is discharged she will stop by tonight to pour her evening meds. She would like a call back regarding the final dispo. [phone] (cell) or [phone]. Crisis returned to see the patient at ~ 10:30 a.m. per patient's request. Pt is alert, oriented 3x. Pt is requesting to go home. She denies SI/HI/AH/VH. We discussed how she has new heart medications and that her nurse is giving them to her. Pt is still concerned that the nurse is not giving her all her medications. Pt is requesting to go home and states we are violating her rights by keeping her here. Educated the pt on the process for patients once they are involved with crisis. Informed Pt that the plan is for this chief writer to review her case with the administration specialist psychiatrist and that we will then be able to discharge her. Pt is anxious about leaving but cooperative. Crisis consulted with Dr. Dumont. Pt to be discharged home with follow up to Care. Who Do You Live With? Patient/Self Family/Informants Interviewed: sister, visiting nurse, see present illness section. Left message for Care- Airam Juarez [phone] Allergies - Coded Allergies: quetiapine (PER PT CANT REMEMBER 01/26/18) fluphenazine (STARES AT CEILING, WEIRD GYRATIONS PER PT 01/26/18) lithium (GAINS A LOT OF WEIGHT PER PT 01/26/18) molindone (AKATHESIA 01/26/18) venom-honey bee (BEE VENOM (HONEY BEE)) (BEE VENOM WITH AKATHESIA 01/26/18) Current Medications - Scheduled Medications Aspirin (Aspirin*) 81 MG TAB.CHEW 1 TAB PO DAILY ACS #30 TAB Prescribed by Gino Moran on 03/16/18 Azithromycin 500 MG TABLET 1 TAB PO DAILY COPD #2 TAB Prescribed by Gino Moran on 03/16/18 Benztropine Mesylate 0.5 MG TABLET 1 TAB PO BID MENTAL HEALTH (Reported) Entered as Reported by Kori Hudson on 10/29/151934 Budesonide/Formoterol Fumarate (Symbicort 160-4.5 Mcg Inhaler) 160 MCG-4.5 MCG/ ACTUATION HFA.AER.AD 2 PUF INH BID copd #1 INHAL Prescribed by Gino Moran on 03/16/18 Carbamazepine (Tegretol) 200 MG TABLET 2 TAB PO BID MENTAL HEALTH (Reported) Entered as Reported by Kori Hudson on 10/29/151934 Carvedilol (Coreg) 12.5 MG TABLET 1 TAB PO BID ACS #60 TAB Prescribed by Gino Moran on 03/16/18 Clopidogrel Bisulfate (Plavix) 75 MG TABLET 1 TAB PO DAILY NSTEMI #30 TAB Prescribed by Gino Moran on 03/16/18 Diclofenac Potassium 50 MG TABLET 1 TAB PO BID PAIN #60 TAB (Reported) Entered as Reported by Sean Bhatti MD on 03/14/18 1525 Levothyroxine Sodium 150 MCG TABLET 1 TAB PO DAILY AC THYROID (Reported) Entered as Reported by Christine Clevelnad on 07/21/14 0748 Lisinopril 10 MG TABLET 1 TAB PO DAILY NSTEMI #30 TAB Prescribed by Gino Moran on 03/16/18 Lorazepam (Ativan) 0.5 MG TABLET 1 TAB PO DAILY ANXIETY (Reported) Entered as Reported by Kori Hudson on 10/29/151935 Prednisone 10 MG TABLET 1 TAB PO SI copd #32 TAB Prescribed by Gino Moran on 03/16/18 Sertraline HCl (Zoloft) 25 MG TABLET 1 TAB PO DAILY MENTAL HEALTH (Reported) Entered as Reported by Kori Hudson on 10/29/151932 Simvastatin (Zocor*) 40 MG TABLET 1 TAB PO QPM CHOLESTEROL (Reported) Entered as Reported by Kori Hudson on 10/29/151937 Tiotropium [place] (Spiriva) 18 MCG CAP.W.DEV 1 PUF INH DAILY copd #1 BOX Prescribed by Gino Moran on 03/16/18 Ziprasidone Hydrochloride (Geodon) 60 MG CAPSULE 1 CAP PO BID MENTAL HEALTH # 60 (Reported) Entered as Reported by Aquilino Rodriguez on 01/26/18 1159 Scheduled PRN Medications Albuterol Sulfate 1.25 MG/3 ML VIAL.NEB 1 Vial INH/JADEN Q4-6 PRN shortness of breath #1 INH (Reported) Entered as Reported by Sean Bhatti MD on 03/14/18 1520 Ipratropium/Albuterol Sulfate (Combivent Respimat Inhal [place]) 20 MCG-100 MCG/ ACTUATION MIST.INHAL 1 SPRAY INH Q6H PRN SHORTNESS OF BREATH #1 INH (Reported ) Entered as Reported by Sean Bhatti MD on 03/14/18 1522 Laboratory Results: Laboratory Tests 03/23/18 0616: Urine Opiates Screen < 100, Methadone Screen < 40, Barbiturate Screen < 60, Ur Phencyclidine Scrn < 6.00, Amphetamines Screen < 100, U Benzodiazepines Scrn < 85, Urine Cocaine Screen < 50, Urine Cannabis Screen < 5.00 03/23/18 0532: Anion Gap 9, Estimated GFR > 60, BUN/Creatinine Ratio 35.6 H, Glucose 111 H, Calcium 10.2, Total Bilirubin 0.6, AST 59 H, ALT 109 H, Alkaline Phosphatase 76, Total Protein 7.6, Albumin 4.2, Globulin 3.4, Albumin/Globulin Ratio 1.2, TSH 1.520, Free T4 1.01, CBC w Diff MAN DIFF ORDERED, RBC 3.91 L, MCV 95.9, MCH 32.9 H, MCHC 34.3, RDW 13.9, MPV 7.5, Gran % 83.1 H, Lymphocytes % 10.3 L, Monocytes % 6.5, Eosinophils % 0.1, Basophils % 0, Absolute Granulocytes 8.5 H, Absolute Lymphocytes 1.0 L, Absolute Monocytes 0.7 H, Absolute Eosinophils 0, Absolute Basophils 0, Platelet Estimate ADEQUATE, Normocytic RBCs VERIFIED, Normochromic RBCs VERIFIED, Carbamazepine 3.1 L, Serum Alcohol < 10.0 03/23/18 0523: Carbamazepine Cancelled Past History Past Medical History Neurological: NONE EENT: NONE Cardiovascular: hypertension Respiratory: COPD Gastrointestinal: NONE Hepatic: NONE Renal: NONE Musculoskeletal: R HIP/FEMUR/PELVIC FX/SX Psychiatric: schizoaffective disorder, borderline personality disorder, tobacco use disorder. Endocrine: hypothyroidism Blood Disorders: NONE Cancer(s): breast cancer BUSINESS CONTROL MANAGER/Reproductive: NONE Past Surgical History Surgical History: status post lumpectomy Psychosocial History Strengths/Capabilities: Engaged in treatment at Care including med management, visiting nurse and therapy. Supportive patient case manager. Physical Limitations (Interventions): Right trochanter partial-fracture 10/29/2015; fracture was pinned on 10/31/2015. Psychiatric Treatment History Psych Treatment Psychiatric Treatment Yes Inpatient Treatment Yes Outpatient Treatment Yes Location of Treatment Most recent 2012 ([facility]), active at Care Reason for Treatment paranoia, mood dysregulation, psychosis Dates of Treatment see above Response to Treatment good- pt is responds well to medication regimine she has been on for a while Diagnosis by History: Schizoaffective disorder bipolar type Chart h/o benzodiazepine dependence, schizotypal personality disorder with borderline, narcissistic, histrionic and paranoid traits Substance Use/Abuse History Drug Use/Abuse 1 Substances Used/Abused Yes Substance Used/Abused Alcohol First Use unk Last Used unk How much used/taken 1 beer every once in a while Drug Use/Abuse 2 Substances Used/Abused Yes Substance Used/Abused Nicotine First Use unk Last Used 03/23/18 prior to coming to ED How much used/taken a few cigarettes How often daily For how long years Route of use inhale Substance Abuse Treatment Substance Abuse Treatment Past Substance Abuse [place] No Inpatient Treatment No Outpatient Treatment No Current Mental Status Mental Status Orientation: Person, Place, Situation Affect: Anxious Speech: Loud Neuro-vegetative: Concentration Poor, Sleep Disturbance Appearance Appearance- Dress/Hygiene: Pt presents in hospital attire Hygiene is adequate Behaviors Thought Process: Logical/Rational Thought Content: Paranoid Memory: Impaired Insight: Fair SI/HI Risk Assessment Past Suicidal Ideation/Attempts No Current Suicidal Ideation/Att No Past Homicidal Ideation/Att: No Current Homicidal Ideation/Attempts No Degree of Intent: None Risk Factors: chronic/serious med cond., SA/MH hospitalized, poor impulse control, lives alone Lethality Ratin PTSD Checklist PTSD Done? patient declined ED Management Sitter: Yes Restraints: No DSM5/PS Stressors/Medical Prob Diagnosis' (DSM 5, Stressors, Medical): F25.9 Schizoaffective Disorder Medical: recent heart attack, hypertension, hyperthyroidism, hx of breast cancer Current GAF: 45 Departure Disposition Psych Medical Clearance Date: 03/23/18 Medically Cleared at: 0845 Time Started: 844 Time Ended: 929 Psychiatrist Consulted: Dr. Haleigh Dumont Date Disposition Established: 03/23/18 Time Disposition Established: 1100 Plan for Disposition - Modality: Outpatient Facility: [facility] Rationale for Disposition: Pt presented paranoid about her medications and denies SI/HI/AH/VH. Pt has a visiting nurse that comes daily to give her the am meds and pre pours the evening meds. Visiting nurse believes the new medications (for her heart) are confusing her. She also believes the prednisone is impacting her. She does not have concerns for safety. Pt is requesting to go home and follow up with Care. Referrals Makenna Gonzalez APRN (PCP/Family)
[2018-03-23 11:18] VITALS: BP 160/81
== END 2018-03-23 11:16 ==
LOC: ERH 05:16
PROVIDERS: Pediatrics
DX: F20.9 Schizophrenia, unspecified (principal); F22 Delusional disorders
CPT/HCPCS: 1263; 80307; G0463; G0480; J3490

== ENCOUNTER 2018-04-14 12:35 | Emergency (ER) | payer OTHER, MEDICARE ==
[~2018-04-14] VITALS: Ht 160 cm; Wt 81.6 kg
--- NOTE | 2018-04-14 13:08 | ED GENERAL ADULT ---
History of Present Illness General Chief Complaint: Dizziness Stated Complaint: DIZZY WHEN BENDING OVER/FALL Source: patient Exam Limitations: no limitations Vital Signs & Intake/Output Vital Signs & Intake/Output Vital Signs Date Time Temp Pulse Resp B/P B/P Pulse O2 O2 Flow FiO2 Mean Ox Delivery Rate 04/14 1250 96 Room Air 04/14 1247 98.7 59 14 99/56 96 Room Air Allergies Coded Allergies: quetiapine (PER PT CANT REMEMBER 01/26/18) fluphenazine (STARES AT CEILING, WEIRD GYRATIONS PER PT 01/26/18) lithium (GAINS A LOT OF WEIGHT PER PT 01/26/18) molindone (AKATHESIA 01/26/18) venom-honey bee (BEE VENOM (HONEY BEE)) (BEE VENOM WITH AKATHESIA 01/26/18) Reconcile Medications Albuterol Sulfate 1.25 MG/3 ML VIAL.NEB 1 Vial INH/JADEN Q4-6 PRN shortness of breath (Reported) Aspirin (Aspirin*) 81 MG TAB.CHEW 1 TAB PO DAILY ACS . Benztropine Mesylate 0.5 MG TABLET 1 TAB PO BID MENTAL HEALTH (Reported) Budesonide/Formoterol Fumarate (Symbicort 160-4.5 Mcg Inhaler) 160 MCG-4.5 MCG/ ACTUATION HFA.AER.AD 2 PUF INH BID copd Carbamazepine (Tegretol) 200 MG TABLET 2 TAB PO BID MENTAL HEALTH (Reported) Carvedilol (Coreg) 12.5 MG TABLET 1 TAB PO BID ACS . Clopidogrel Bisulfate (Plavix) 75 MG TABLET 1 TAB PO DAILY NSTEMI . Diclofenac Potassium 50 MG TABLET 1 TAB PO BID PAIN (Reported) Ipratropium/Albuterol Sulfate (Combivent Respimat Inhal [place]) 20 MCG-100 MCG/ ACTUATION MIST.INHAL 1 SPRAY INH Q6H PRN SHORTNESS OF BREATH (Reported) Levothyroxine Sodium 150 MCG TABLET 1 TAB PO DAILY AC THYROID (Reported) Lisinopril 10 MG TABLET 1 TAB PO DAILY NSTEMI . Lorazepam (Ativan) 0.5 MG TABLET 1 TAB PO DAILY ANXIETY (Reported) Prednisone 10 MG TABLET 1 TAB PO SI copd take 4 pills for 3d take 3 pills for 3d take 2 pills for 3d days, take 1 pill for 3d take half pill for 3d Sertraline HCl (Zoloft) 25 MG TABLET 1 TAB PO DAILY MENTAL HEALTH (Reported) Simvastatin (Zocor*) 40 MG TABLET 1 TAB PO QPM CHOLESTEROL (Reported) Tiotropium [place] (Spiriva) 18 MCG CAP.W.DEV 1 PUF INH DAILY copd Ziprasidone Hydrochloride (Geodon) 60 MG CAPSULE 1 CAP PO BID MENTAL HEALTH ( Reported) Triage Note: PT STATES WHILE BENDING OVER TO [employer] CIGARETTE BUTT, BECAME DIZZY, FELL TO RIGHT SIDE WITH ABRASIONS TO BOTH RIGHT ARM AND RIGHT SIDE OF FACE. WITNESSED EVENT, NO LOC, PRESENTS WITHOUT NO NEURO DEFECIT. Triage Nurses Notes Reviewed? yes HPI: 63yo female with PMH of schizophrenia, COPD, CAD with stent placement, hypothyroid c/o of dizziness, right wrist pain, right knee pain. Pt states that she was walking down the street with her friend when he dropped a new cigarette on the ground. She bent down to pick it up, lost her balance and fell on her Left side. There was no LOC, but pt needed assistance to stand back up. EMS was and pt BIBA. Denies any aura preceeding the event. Pt currently denies any acute headaches, nausea, visual changes, tinnitus, numbness, tingling, or incontinence. Pt is also c/o right wrist pain and knee pain from the injury. Pt is on blood thinner which has resulted in some bruising on her extremities, but there is no active bleeding. Past History Travel History Traveled to [place] past 21 day No Medical History Any Pertinent Medical History? see below for history Neurological: NONE EENT: NONE Cardiovascular: hypertension Respiratory: COPD Gastrointestinal: NONE Hepatic: NONE Renal: NONE Musculoskeletal: R HIP/FEMUR/PELVIC FX/SX Psychiatric: schizoaffective disorder, borderline personality disorder, tobacco use disorder. Endocrine: hypothyroidism Blood Disorders: NONE Cancer(s): breast cancer MANAGER ENVIRONMENTAL HEALTH AND SAFETY/Reproductive: NONE History of MRSA: No History of VRE: No History of CDIFF: No Tetanus Vaccine: 05/03/16 Surgical History Surgical History: status post lumpectomy Psychosocial History Who do you live with Patient/Self Services at Home Nursing What is your primary language Honduran Tobacco Use: Current Daily Use Daily Tobacco Use Amount/Type: => 5 Cigarettes daily ETOH Use: occasional use Illicit Drug Use: denies illicit drug use Family History Family History, If Any: FATHER FH: CAD (coronary artery disease) Hx Contributory? No Review of Systems Review of Systems Constitutional: Reports: no symptoms. EENTM: Reports: no symptoms. Respiratory: Reports: see HPI. Cardiovascular: Reports: no symptoms. GI: Reports: no symptoms. Genitourinary: Reports: no symptoms. Musculoskeletal: Reports: see HPI. Skin: Reports: see HPI. Neurological/Psychological: Reports: see HPI. Hematologic/Endocrine: Reports: see HPI. Immunologic/Allergic: Reports: no symptoms. All Other Systems: Reviewed and Negative Physical Exam Physical Exam General Appearance: well developed/nourished, no apparent distress, alert, awake Head: normal appearance, evidence of injury (R eyebrow abrasion) Eyes: Bilateral: normal appearance, PERRL, EOMI. Ears, Nose, Throat: normal pharynx, normal ENT inspection, hearing grossly normal Neck: normal inspection, supple, full range of motion Respiratory: chest non-tender, wheezing (diffuse throughout) Cardiovascular: regular rate/rhythm Gastrointestinal: soft, non-tender Back: normal inspection, normal range of motion Extremities: normal inspection, normal capillary refill, normal range of motion, injury present (ecchymosis of R forearm) Neurologic/Psych: no motor/sensory deficits, awake, alert, oriented x 3 Skin: normal color, warm/dry, ecchymosis (R forearm) Comments: Well-appearing and neurologically intact elderly female, edentulous, benign cardiopulmonary exam, benign abdominal exam, superficial abrasion noted to right side of face and right elbow with some swelling associated. Superficial laceration to the right knee. Core Measures ACS in differential dx? No CVA/TIA Diagnosis: No Sepsis Present: No Sepsis Focused Exam Completed? 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 She is otherwise been healthy and therefore low suspicion for concomitant metabolic derangement or occult infectious process. Given the patient is on anticoagulation, some concern for ICH. No evidence of spinal injury on exam with negative midline tenderness. Given swelling to right elbow and mild swelling to right wrist, will check for fracture/dislocation, however low likelihood based on exam. Doubt any acute vascular pathology at this time. Low suspicion for acute cardiopulmonary event. Plan of Care: Orders Procedure Date/time Status Regular Diet 04/[address] for CT head, x-ray of hand, reassessment. She has small nondisplaced fracture to the proximal fifth metacarpal. Imaging is otherwise negative patient is well-appearing on reassessment, able to end of the difficulty. She remains neurologically hemodynamic Williams intact. She is placed in a splint and discharged home with follow-up instructions and return precautions. Initial ED EKG: none Departure Departure Time of Disposition: 1450 Disposition: HOME OR SELF CARE Condition: Stable Clinical Impression Primary Impression: Closed fracture of 5th metacarpal Referrals: Makenna Gonzalez APRN (PCP/Family) Additional Instructions: Thank you for coming to [facility] today. You have a small fracture to 1 of the bones in your hand. I recommend that you follow-up with your doctor in 1 week for reassessment. Please return to the emergency department he develop any worsening dizziness, lightheadedness, chest pain, shortness of breath, or any other concerning symptoms. Please continue to take all your medications as prescribed. I recommend you quit smoking as we discussed. Departure Forms: Customer Survey General Discharge Information Critical Care Note Critical Care Note Critical Care Time: non-applicable
--- NOTE | 2018-04-14 14:11 | RADIOLOGY REPORT ---
EXAMINATION: XR FOREARM, RIGHT CLINICAL INFORMATION: Pain and swelling. COMPARISON: None TECHNIQUE: AP and lateral views of the right forearm were obtained. FINDINGS: There is no fracture or dislocation. The right elbow and wrist joints appear intact. Regional soft tissue is unremarkable. No radiopaque foreign object. IMPRESSION: No fracture or dislocation.
--- NOTE | 2018-04-14 14:15 | RADIOLOGY REPORT ---
EXAMINATION: XR KNEE, RIGHT CLINICAL INFORMATION: Pain status post trauma. COMPARISON: Right knee radiographs dated 07/05/2016. TECHNIQUE: 5 views of the right knee. FINDINGS: There is no fracture or dislocation. There is severe degenerative disease involving all 3 compartments of the knee characterized by joint space narrowing, subchondral sclerosis, and osteophytosis. There is a small suprapatellar effusion. IMPRESSION: No fracture or dislocation. Severe tricompartmental degenerative disease. Small suprapatella effusion.
--- NOTE | 2018-04-14 14:22 | RADIOLOGY REPORT ---
EXAMINATION: XR HAND, RIGHT CLINICAL INFORMATION: Pain and swelling. COMPARISON: Right hand radiographs dated 02/20/2015. TECHNIQUE: PA, and lateral views of the right hand. FINDINGS: There is a small cortical defect and associated linear lucency through the base of the fifth metacarpal bone. A nondisplaced fracture is suspected. This cortical defect was not seen on the prior examination. There is mild soft tissue swelling. No additional fracture. No dislocation. No radiopaque foreign object in the soft tissue. IMPRESSION: Nondisplaced fracture involving the proximal aspect of the fifth metacarpal bone.
--- NOTE | 2018-04-14 14:41 | CT SCAN REPORT ---
EXAMINATION: CT HEAD WITHOUT CONTRAST CLINICAL INFORMATION: 63-year-old female with head strike on anticoagulation. Dizziness. COMPARISON: CT of the head done on 11/30/2012. TECHNIQUE: Contiguous axial imaging was performed from the skull base to vertex without intravenous administration of contrast. DLP: 1238.87 mGy-cm FINDINGS: The entire study is technically limited due to motion related artifacts. There is no evidence of acute intracranial hemorrhage or territorial infarction. No abnormal mass effect or midline shift is seen. Batres to white matter differentiation is well preserved. No extra-axial fluid collections are identified. The ventricles are normal in size. There is no abnormal attenuation within the brain parenchyma. The osseous structures and soft tissues are normal. The mastoid air cells and visualized portions of the paranasal sinuses are well aerated. IMPRESSION: 1. Technically limited study due to motion related artifacts. 2. No gross evidence of acute intracranial hemorrhage or acute intracranial pathology.
[2018-04-14 14:55] VITALS: BP 106/60
== END 2018-04-14 14:55 ==
LOC: ERH 12:35
DX: S62.306A Unspecified fracture of fifth metacarpal bone, right hand, initial encounter for closed fracture (principal); W19.XXXA Unspecified fall, initial encounter; Y92.410 Unspecified street and highway as the place of occurrence of the external cause; Y93.01 Activity, walking, marching and hiking
CPT/HCPCS: 73090-RT; 73120-RT; 73560-RT